=== PATIENT | female | born 1955 | race Caucasian/White ===

== ENCOUNTER 2018-05-24 15:31 | Outpatient (REF) | payer MEDICARE, SELFPAY ==
--- NOTE | 2018-05-24 14:40 | PAPFT_PTH ---
PATIENT: Gia Macario LOC: [facility] U#:[id number] AGE/SX: 63/F ROOM: RE05/24/[address]: Pari Marie : 1955 BED: DIS: 05/24/2018 SPEC #: [id number] RECD: 05/24/18 18:12 STATUS: PHILL REQ #: [id number] JEFRY: 05/24/18 14:[address]: Pari Marie DEPT: [facility] Cytology RECD BY: Gracia Campbell ENTERED: 05/24/18 18:13 SP TYPE: PAPFT BRANDON DR: Denny Rodas MD Tissues: 1 - CX/ENDOCX FOR PAP SMEARS Procedures: PAP THIN PREP/UVM Screening HPV DNA PROBE Comments: [id number]
== END 2018-05-24 15:51 ==
LOC: LBN 15:31
PROVIDERS: PCP Family Medicine; Visit Provider Obstetrics & Gynecology Gynecology
DX: Z12.4 Encounter for screening for malignant neoplasm of cervix (principal); Z11.51 Encounter for screening for human papillomavirus (HPV)
CPT/HCPCS: 88142; 87624

== ENCOUNTER 2018-06-03 00:28 | Outpatient (CLI) | payer MEDICARE, SELFPAY ==
--- NOTE | 2018-06-03 14:57 | DI.MAMMO_ITS ---
SYMPTOM/DIAGNOSIS: SCREENING, Z12.31 MAMMOGRAMS: Mammograms were interpreted according to the usual protocol including computer analysis with CAD system, tomosynthesis and C view imaging. The breasts are of moderate density with fairly symmetrical distribution of fibroglandular tissue. No dominant mass or clumped microcalcification is identified in either breast. Current examination is compared with previous examinations including 04/2017 and there has been no gross interval change in appearance in comparison with the previous studies. CONCLUSION: No specific evidence of malignancy at this time. Routine screening examinations are suggested at yearly intervals in this age group according to the ACS/ACR guidelines. Category 1. Breast density, category B. MQSA ASSESSMENT OF FINDINGS: Negative. Category 1. Patient will receive a letter notifying them of these results. BI-RADS category B. There are scattered areas of fibroglandular density.
--- NOTE | 2018-06-03 15:26 | DI.RAD_ITS ---
SYMPTOMS/DIAGNOSIS: EVAL BONE DENSITY, POSTMENOPAUSAL SCREENING, Z78.0, HX OF OSTEOPENIA DEXA SCAN: Lumbosacral spine scanning shows T score 0, previous examination of 01/2015 showed lumbar T score .3. Left hip scanning shows T score -1.1 with left femoral neck T score -1.7. The previous examination of 01/2015 showed left hip T score -.9. The left forearm scanning shows T score .6, previous examination of 01/2015 showed T score 1.5. Please note that the lateral vertebral scanogram shows slight wedging of mid thoracic vertebral bodies, mild compression fracture not excluded vs developmental changes. CONCLUSION: Findings consistent with osteopenia according to the WHO criteria.
== END 2018-06-03 00:48 ==
PROVIDERS: PCP Family Medicine; Visit Provider Obstetrics & Gynecology Gynecology
DX: Z12.31 Encounter for screening mammogram for malignant neoplasm of breast (principal); M85.88 Other specified disorders of bone density and structure, other site; Z78.0 Asymptomatic menopausal state
CPT/HCPCS: 77063; 77067; 77080

== ENCOUNTER → 2018-09-20 09:31 | Outpatient (BNVA) | payer MEDICARE, SELFPAY | PROVIDERS: PCP Family Medicine; Visit Provider Psychiatry & Neurology Neurology | DX: G40.209 Localization-related (focal) (partial) symptomatic epilepsy and epileptic syndromes with complex partial seizures, not intractable, without status epilepticus (principal); G43.009 Migraine without aura, not intractable, without status migrainosus; R13.10 Dysphagia, unspecified | CPT/HCPCS: 99214 ==

== ENCOUNTER 2018-09-20 10:39 | Outpatient (CLI) | payer MEDICARE, OTHER, SELFPAY ==
[2018-09-20 11:09] LABS: HCT 45.3 % (36.0-46.0); HGB 14.9 g/dL (12.0-15.5); Mean Corp. HGB Concentration 32.9 g/dL (32.0-36.0); Mean Corpuscular Hemoglobin 27.4 pg (27.0-33.0); Mean Corpuscular Volume 83.3 fL (80-95); Mean Platelet Volume 11.3 fL (8.0-11.0); Platelet Count 201 x1000/uL (130-400); RBC 5.44 m/cumm (4.00-5.20); RBC Distribution Width 15.2 % (11.7-14.6)
[2018-09-20 12:00] LABS: ALT 32 U/L (12-78); AST 24 U/L (15-37); Albumin 4.2 g/dL (3.4-5.0); Alkaline Phosphatase 120 U/L (46-116); Anion Gap 8.2 mmol/L (3-11); BUN 25 mg/dL (7-18); Bilirubin, Total 0.5 mg/dL (0.2-1.0); CO2 31.8 mmol/L (21.0-32.0); CREATININE 0.98 mg/dL (0.55-1.02); Calcium 9.9 mg/dL (8.5-10.1); Chloride 102 mmol/L (98-107); Estimated GFR 56.96 (mL/min/1.73m2); Glucose 90 mg/dL (70-100); Potassium 3.9 mmol/L (3.5-5.1); Sodium 142 mmol/L (136-145); Total Protein 7.3 g/dL (6.4-8.2)
[2018-09-21 16:45] LABS: Lamotrigine 9.8 mcg/mL (2.5 - 15.0)
== END 2018-09-20 10:59 ==
PROVIDERS: PCP Family Medicine; Visit Provider Psychiatry & Neurology Neurology
DX: R79.89 Other specified abnormal findings of blood chemistry (principal); G40.209 Localization-related (focal) (partial) symptomatic epilepsy and epileptic syndromes with complex partial seizures, not intractable, without status epilepticus; E03.9 Hypothyroidism, unspecified; Z51.81 Encounter for therapeutic drug level monitoring; G43.009 Migraine without aura, not intractable, without status migrainosus; R13.10 Dysphagia, unspecified
CPT/HCPCS: 36415; 80053; 80175; 85027; 99214; 84443

== ENCOUNTER 2018-12-17 13:52 | Emergency (ER) | payer MEDICARE, OTHER, SELFPAY ==
[2018-12-17] VITALS (51 sets, daily range): BP systolic 119–150; BP diastolic 63–88; PULSE 59–79; RESP 8–30; TEMP 36.7; O2SAT 95–100
[2018-12-17] MEDS: Aspirin 81 MG CHEW (14:03)
--- NOTE | 2018-12-17 14:07 | W.ED.GENAD ---
Discharge Plan Disposition Patient Disposition: HOME Condition: Improving Discharge Details Chief Complaint: Chest Pain Clinical Impression: Chest pain, Costochondral chest pain Primary Care Provider: Denny Rodas ED Provider: Eryn Patel Home Meds and New Rx's Prescriptions: Continued multivitamin [Daily Multi-Vitamin] 1 EACH tablet 1 ea PO DAILY RF: 0 ascorbic acid (vitamin C) [Vitamin C] 500 MG tablet,chewable 500 mg PO DAILY RF: 0 calcium carbonate [Tums] 300 MG tablet,chewable 300 mg PO BID RF: 0 cranberry extract 250 MG capsule 250 mg PO BID RF: 0 folic acid 0.8 MG tablet 0.8 mg PO DAILY RF: 0 cholecalciferol (vitamin D3) 1,000 UNIT capsule 1,000 unit PO DAILY RF: 0 magnesium oxide 400 MG capsule 400 mg PO DAILY RF: 0 hydroxyzine HCl 25 MG tablet 25 mg PO Q4H PRN Qty: 120 RF: 3 naproxen sodium 550 MG tablet 550 mg PO BID PRN Qty: 60 RF: 3 levothyroxine 75 mcg tablet 75 mcg PO DAILY Qty: 90 RF: 3 sumatriptan succinate [Imitrex] 25 mg tablet 25 mg PO ONCE Qty: 18 RF: 11 lamotrigine 200 mg tablet extended release 24hr 400 mg PO HS Qty: 180 RF: 3 metoprolol succinate 50 mg tablet extended release 24 hr 50 mg PO DAILY Qty: 90 RF: 3 metoprolol succinate 25 mg tablet extended release 24 hr 25 mg PO DAILY Qty: 90 RF: 3 gabapentin 300 mg capsule 300 mg PO BID Qty: 180 RF: 3 Discharge Instructions Instructions: Chest Pain (ED), Chest Wall Pain (ED) Additional Instructions: Follow-up promptly with her primary care doctor as well as with cardiology as discussed. Use Naprosyn [id number] with food. Ice to the chest wall. Rest activities as tolerated. Avoid any heavy lifting. You declined admission to the hospital at this time for further evaluation of chest pain. For any alarming symptoms, worsening symptoms, difficulty breathing, increasing chest pain associated with dizziness or weakness have immediate reevaluation to the emergency room. Return sooner if needed Medical Decision Making <SHARON Mancilla - Last Filed: 12/17/18 16:22> 14:00 This is a nontoxic-appearing 63-year-old female with substernal chest pain. Pain is somewhat reproducible with palpation of the sternum. EKG shows sinus rhythm without evidence of ST changes. Labs pending. Aspirin 324 mg given. Sublingual nitro provided. 15:26 Patient remains a stable on the monitor. She states that her chest pain was unresponsive to 2 sublingual nitroglycerin. She did experience significant relief with morphine 2 mg IV push. Her labs including initial troponin and d-dimer were negative. At this point her HEART score is mild. Her only risk factors being that of her age, family history of heart disease, and hypertensive history. Plan at this point is to repeat a troponin/EKG at 5:00. If negative we discussed discharge home and following up with her primary care provider Dr. Rodas. <SHARON Lazar - Last Filed: 12/17/18 23:02> This patient was signed out pending repeat EKG and troponin. Repeat EKG and troponin are unremarkable for any obvious cardiac injury or ischemic changes on the EKG. EKG was reviewed with my attending. Plan of care was discharged home if results were negative. I did discuss this with the patient. Patient does have mild persistence of her chest pain. On exam her pain is mildly reproducible. We discussed admission to the hospital for further cardiac rule out versus outpatient cardiac evaluation. 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 Patient will also follow-up with her primary care doctor. Patient is aware for any alarming or worsening symptoms to have immediate reevaluation in the emergency room. Patient agrees with this plan of care. HPI <SHARON Mancilla - Last Filed: 12/17/18 16:22> General Date/Time Provider Initiated Documentation: 12/17/18 14:02. HPI Narrative: Patient is a 63-year-old female with a history of migraines, pancreatitis, seizure and basal cell carcinoma of the face who presents to the emergency department with substernal chest pain nonradiating roughly 1 hour prior to arrival. She states that the pain came on suddenly and is gradually increased over this time. She denies any shortness of breath, however her pain is worse with deep breathing. No jaw or neck pain. No numbness or tingling in the hands. No recent illness. She denies any abdominal tenderness. No calf pain or swelling noted as of late. She has no history of heart disease nor is aware of any family history. She is a non-smoker. Related Data Home Medications Medication Instructions Recorded Confirmed ascorbic acid (vitamin C) [Vitamin 500 mg PO DAILY tab.chew 07/24/14 12/08/18 C] multivitamin [Daily Multi-Vitamin] 1 ea PO DAILY 07/24/14 12/08/18 calcium carbonate [Tums] 300 mg PO BID tab.chew 08/28/14 12/08/18 cranberry extract 250 mg PO BID 01/21/17 12/08/18 folic acid 0.8 mg PO DAILY tab-cap 01/29/17 12/08/18 cholecalciferol (vitamin D3) 1,000 unit PO DAILY 02/17/17 12/08/18 magnesium oxide 400 mg PO DAILY 02/17/17 12/08/18 hydroxyzine HCl 25 mg PO Q4H PRN #120 tab-cap 09/21/17 12/08/18 naproxen sodium 550 mg PO BID PRN #60 tab-cap 10/14/17 12/08/18 levothyroxine 75 mcg tablet 75 mcg PO DAILY #90 tab-cap 01/28/18 12/08/18 lamotrigine 200 mg tablet,extended 400 mg PO HS #180 tab 02/18/18 12/08/18 release 24 hr sumatriptan succinate 25 mg tablet 25 mg PO ONCE #18 tab-cap 02/18/18 12/08/18 metoprolol succinate 50 mg 50 mg PO DAILY #90 tab 06/01/18 12/08/18 tablet,extended release 24 hr metoprolol succinate 25 mg 25 mg PO DAILY #90 tab 07/29/18 12/08/18 tablet,extended release 24 hr gabapentin 300 mg capsule 300 mg PO BID #180 cap 10/21/18 12/08/18 Previous Rx's Medication Instructions Recorded hydroxyzine HCl 25 mg PO Q4H PRN #120 tab-cap 09/21/17 naproxen sodium 550 mg PO BID PRN #60 tab-cap 10/14/17 levothyroxine 75 mcg tablet 75 mcg PO DAILY #90 tab-cap 01/28/18 lamotrigine 200 mg tablet,extended 400 mg PO HS #180 tab 02/18/18 release 24 hr sumatriptan succinate 25 mg tablet 25 mg PO ONCE #18 tab-cap 02/18/18 metoprolol succinate 50 mg 50 mg PO DAILY #90 tab 06/01/18 tablet,extended release 24 hr metoprolol succinate 25 mg 25 mg PO DAILY #90 tab 07/29/18 tablet,extended release 24 hr gabapentin 300 mg capsule 300 mg PO BID #180 cap 10/21/18 Allergies Allergy/AdvReac Type Severity Reaction Status Date / Time No Known Allergies Allergy Unverified 12/08/18 08:46 General Stated Complaint: Chest Pain DOMINGA: 2 Review of Systems <SHARON Mancilla - Last Filed: 12/17/18 16:22> Constitutional Denies body ache(s), Denies fatigue, Denies fever(s), Denies headache(s), Denies lethargy, Denies night sweats and Denies weakness ENT Denies headache(s) and Denies neck pain Cardiovascular Reports chest pain, Reports chest pain at rest, Denies diaphoresis, Denies syncope, Denies rapid heart rate, Denies pedal edema, Denies edema, Denies irregular heart rhythm, Denies claudication, Denies leg ulcers, Denies leg edema, Denies lightheadedness, Denies radiating jaw, neck or arm pain, Denies palpitations, Denies dyspnea, Denies dyspnea on exertion, Denies orthopnea, Denies paroxysmal nocturnal dyspnea and Denies slow heart rate Respiratory Denies cough, Denies hemoptysis, Reports pain on inspiration, Denies dyspnea and Denies dyspnea on exertion Gastrointestinal Denies abdominal pain, Reports nausea and Denies vomiting Musculoskeletal Denies muscle weakness, Denies neck pain and Denies numbness Neurologic Denies syncope, Denies headache(s), Denies numbness and Denies weakness Endocrine Denies fatigue and Denies palpitations PFS <SHARON Mancilla - Last Filed: 12/17/18 16:22> Medical History Basal cell carcinoma of face (Acute) Brain abscess (Acute) 1971; 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 Sz at night. Currently stable on Lamictal. Cyst of breast, right, solitary 2013 Cat 2 2014.unchanged in appearance 04/2016 4.7mm R breast cyst. Displaced transverse fracture of right patella, subsequent encounter for closed fracture with malunion (Acute 08/01/16) Dyspareunia clitoral pain. Compounded vaginal E2 cream thru [facility] not effective. Elbow fracture, left (Acute) Glaucoma (Acute 03/14/15) Hypothyroidism (Chronic) Kidney stone (Acute 08/24/14) Migraine without aura and without status migrainosus, not intractable (Acute 03/23/17) SHERLY (obstructive sleep apnea) (Chronic) Osteopenia (Acute) Pancreatitis (Acute 01/16/17) Valproic acid toxicity 2016. Hospitalized at [facility]. Significant recovery. Surgical History section (~1989) Dilation and curettage LAMINECTOMY LUMBAR Ligation of fallopian tube ORIF R Patella 02/13/16 Tonsillectomy VENTRICULAR SHUNT after I+D of brain abcess. No issues. Family History Mother CHF (congestive heart failure) Father Essential hypertension Multiple myeloma Brother Essential hypertension Grandfather No problems noted. Grandfather Stroke Grandmother No problems noted. Grandmother No problems noted. Son No problems noted. Daughter No problems noted. 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 Seatbelt use: always Do you feel safe at home: Yes Do you feel safe in your relationship?: Yes Female Reproductive History Menstrual Menopause type: natural History History 3 Para Hx # Term Pregnancies 2 Multiple births Hx # Pregnancies Ectopic pregnancies AB induced Hx Number of Living Children AB spontaneous Exam <SHARON Mancilla - Last Filed: 12/17/18 16:22> Const General: cooperative, comfortable and anxious Orientation: alert, awake and oriented x3 HENMT Head: normal to inspection Neck Neck: normal visual inspection, full ROM and no lymphadenopathy Chest Chest: normal inspection of the chest and tenderness sternum and xiphoid process Resp Effort & Inspection: normal respiratory effort and able to speak in complete sentences Auscultation: clear to auscultation bilaterally Cardio Jugular venous pressure: no JVD Palpation: normal PMI Rate: regular rate Rhythm: regular rhythm Heart Sounds: S1 normal and S2 normal Pulses: normal peripheral pulses GI Inspection: normal to inspection Palpation: soft and nontender Skin General skin exam: no rashes or lesions noted Extrem General: normal to inspection Course <SHARON Mancilla - Last Filed: 12/17/18 16:22> Vital Signs Temperature 36.7 C 12/17/18 13:58 Pulse 73 12/17/18 13:58 Respiratory Rate 16 12/17/18 13:58 Blood Pressure 143/86 H 12/17/18 13:58 Pulse Oximetry 98 12/17/18 13:58 Temperature 36.7 C 12/17/18 13:58 Pulse 73 12/17/18 13:58 Respiratory Rate 16 12/17/18 13:58 Blood Pressure 143/86 H 12/17/18 13:58 Blood Pressure Position Supine 12/17/18 13:58 Pulse Oximetry 98 12/17/18 13:58 Oxygen Delivery Method Room Air 12/17/18 13:58 Oxygen Flow Rate 0 12/17/18 13:58 Pain Level 8 12/17/18 13:58 Sign Out <SHARON Mancilla - Last Filed: 12/17/18 16:22> Sign Out Data: Sign Out Comment: Pts here for CP. Symptoms improved s/p Morphine 2 mg IVP. Neg trop/ekg initial. Low HEART score. Repeat trop/ekg pending @1700. If neg she would prefer d/c home and f/u with PCP. Last updated by David Livingston PA at 12/17/18 16:16
[2018-12-17 14:12] LABS: Abs Immature Grans 0.02 k/cumm (0.0-0.09); Absolute Basophil Count 0.02 k/cumm (0.0-0.2); Absolute Eosinophil Count 0.06 k/cumm (0.0-0.7); Absolute Lymphocyte Count 1.67 k/cumm (1.2-3.4); Absolute Monocyte Count 0.28 k/cumm (0.11-0.7); Absolute Neutrophil Count 4.54 k/cumm (1.2-6.7); Basophils % 0.3; Eosinophils % 0.9; HCT 47.9 % (36.0-46.0); Immature Grans % 0.3; Lymphocytes % 25.3; Mean Corp. HGB Concentration 33.4 g/dL (32.0-36.0); Mean Corpuscular Hemoglobin 27.6 pg (27.0-33.0); Mean Corpuscular Volume 82.7 fL (80-95); Mean Platelet Volume 11.1 fL (8.0-11.0); Monocytes % 4.2; Platelet Count 220 x1000/uL (130-400); RBC 5.79 m/cumm (4.00-5.20); RBC Distribution Width 14.8 % (11.7-14.6); White Blood Cell Count 6.59 k/cumm (4.4-10.8)
--- NOTE | 2018-12-17 14:14 | NUR.NOTE ---
Nursing Note: pt refused 3rd nitroglycerin, will notify PA
[2018-12-17] MEDS: Ondansetron 4 MG/2 ML VIAL IVP (14:22)
[2018-12-17 14:30] LABS: PTT Activated 24.2 sec (21.0-31.4); Prothrombin Time 9.6 sec (9.3-11.0)
--- NOTE | 2018-12-17 14:30 | DI.RAD_ITS ---
SYMPTOMS/DIAGNOSIS: SUBSTERNAL CHEST PAIN PORTABLE AP CHEST: Note is made of ventriculoperitoneal shunt. The cardiac size is within normal limits. The lungs are clear and well expanded. CONCLUSION: No evidence of acute disease.
[2018-12-17 14:33] LABS: ALT 32 U/L (14-59); AST 19 U/L (15-37); Albumin 4.3 g/dL (3.4-5.0); Alkaline Phosphatase 115 U/L (46-116); Anion Gap 11.8 mmol/L (3-11); BUN 16 mg/dL (7-18); Bilirubin, Total 0.4 mg/dL (0.2-1.0); CO2 27.2 mmol/L (21.0-32.0); CREATININE 1.09 mg/dL (0.55-1.02); Chloride 102 mmol/L (98-107); Estimated GFR 50.38 (mL/min/1.73m2); Glucose 127 mg/dL (70-100); Potassium 4.1 mmol/L (3.5-5.1); Sodium 141 mmol/L (136-145); Total Protein 8.1 g/dL (6.4-8.2)
[2018-12-17 14:36] LABS: Troponin I < 0.05 ng/mL (0.00-0.06)
[2018-12-17 14:46] LABS: D-Dimer 357 ng/mlFEU (<500)
[2018-12-17 17:48] LABS: Troponin I < 0.05 ng/mL (0.00-0.06)
== END 2018-12-17 18:40 | disposition home or self-care (01) ==
PROVIDERS: Physician Assistant; Emergency Provider Physician Assistant; PCP Family Medicine
DX: M94.0 Chondrocostal junction syndrome [Tietze]; Z53.29 Procedure and treatment not carried out because of patient's decision for other reasons
CPT/HCPCS: 36415; 80053; 93005; 96374; 96375; 99285; 71045; 83735; 84484; 85025; 85379; 85610; 85730; 93010; J2405

== ENCOUNTER 2018-12-29 00:32 | Outpatient (CLI) | payer MEDICARE, OTHER, SELFPAY ==
--- NOTE | 2018-12-29 06:38 | MERGEMPI_ITS ---
*[facility]* *[facility]* [address] [place] [address] Myocardial Perfusion Imaging - SPECT Speedy protocol Date of study: 12/29/2018 *PATIENT PRESENTATION* Height: 177.8cm (70in) Blood Pressure: Weight: 72.7kg (160lb) BSA: 1.9m^2 Referring physician: Keaton Abbott Ordering physician: Denny Rodas Impressions: - Normal myocardial perfusion and contraction after maximal exercise. - Low risk of cardiac events. Summary: 1. Myocardial perfusion imaging: No myocardial perfusion defects noted. 2. The calculated left ventricular ejection fraction after stress: 72%. LV global systolic function is normal. No left ventricular regional motion abnormality. 3. Stress ECG conclusions: The stress ECG is non-diagnostic due to motion artifact. 4. Stress: The target heart rate was achieved. The heart rate response to stress is normal. There is a normal resting blood pressure with an appropriate response to stress. The patient experienced no chest pain during stress. Exercise capacity is mildly diminished for age. 5. Baseline ECG: Normal sinus rhythm with 1degrees AV block. 6. Treadmill exercise testing was performed using the Speedy protocol. The patient exercised for 4 min 38 sec, to protocol stage 2, to a maximal work rate of 6.6mets. Exercise was terminated due to dyspnea and fatigue. Indication: R07.9, Appropriate Use Criteria: A (Appropriate). History: REASON FOR TESTING: PATIENT TESTING TODAY FOR FURTHER RISK STRATIFICATION. SHE STATES SHE HAS FEELING TIRED AND EXPERIENCED SOB WITH ACTIVITY FOR THE LAST 6 MONTHS. SHE PRESENTED TO THE ER ON 12/17/18 WITH REALLY BAD HEARTBURN (8/10) MIDSTERNAL CHEST DISCOMFORT ASSOCIATED WITH DIZZYNESS, LIGHTHEADEDNESS AND NAUSEA. IN THE ER SHE RECEIVED ASPIRIN AND NITRO WITHOUT MUCH RELIEF. HOWEVER SHE REPORTS THE MORPHINE AND ZOFRAN WAS HELPFUL AND PAIN SUBSIDED AFTER 3 HOURS IN THE ER. HER TROPONIN LEVELS AND EKG IN ER WERE NORMAL. SHE STATES SHE HAS NOT HAD ANY CHEST PAIN SINCE HER VISIT TO THE ER. PATIENT DENIES CHEST PAIN UPON ARRIVAL TO TESTING TODAY. SIGNIFICANT PAST MEDICAL HISTORY: HISTORY OF BRAIN ABCESS WITH VENTRICULOPERITONEAL SHUNT INSERTION IN 1971, SHERLY, HYPOTHYROIDISM, TUBULAR ADENOMA SEIZURE DISORDER. SMOKING STATUS: NEVER. EXERCISE ROUTINE: ACTIVE WITH ADL'S. Risk factors: Family history of coronary artery disease. Hypertension. Dyslipidemia. Cholesterol: 191mg/dl. HDL: 65mg/dl. LDL: 101mg/dl. Triglycerides: 168mg/dl. ALLERGIES: NO KNOWN ALLERGIES. MEDICATIONS: MULTIVITAMIN DAILY, VITAMIN C 500 MG DAILY, TUMS 300 MG BID, CRANBERRY EXTRACT 250 MG BID, FOLIC ACID 0.8 MG DAILY, VITAMIN D 1000 UNITS DAILY, MAGNESIUM OXIDE 400 MG DAILY, HYDROXYZINE 25 MG PRN, NAPROXEN 550 MG PRN, LEVOTHYROXINE 75 MCG DAILY, IMITREX 25 MG PRN, LAMOTRIGINE 200 MG HS, METOPROLOL SUCCINATE 75 MG DAILY, GABAPENTIN 300 MG BID, LATANOPROST EYE DROPS HS, ASPIRIN 81 MG DAILY. Imaging Technique: Protocol: Speedy protocol. Acquisition: Gated SPECT; 1 day - rest/stress. The patient was imaged in the supine position. Attenuation correction used. Isotope administration: - Rest. Tc[99m]-sestamibi. Dose: 9.6mCi. Injection time: 10:12 AM. Injection to stress time: 00:45. - Stress. Tc[99m]-sestamibi. Dose: 29.3mCi. Injection time: 12:42 PM. 1-2 min before end of exercise Baseline ECG: SINUS RHYTHM/FIRST DEGREE WITH SD INTERVAL OF 0.24. HR 66 BPM. Normal ECG. Normal sinus rhythm with 1degrees AV block. Stress protocol: + +---+ + !Stage !HR !BP (mmHg) ! + +---+ + !Baseline supine !66 !142/90 (107)! + +---+ + !Baseline standing !76 !134/82 (99) ! + +---+ + !Stage I; 1.7mph, 10degrees; 3 min!136!168/92 (117)! + +---+ + !Peak stress !143! ! + +---+ + !Recovery; 1 min !126!180/88 (119)! + +---+ + !Recovery; 3 min !88 !176/80 (112)! + +---+ + !Recovery; 6 min !85 !146/82 (103)! + +---+ + * Stress results: STRESS TEST ENDED IN 4 MINUTES 38 SECONDS DUE TO FATIGUE AND SOB. NORMAL HEART RATE AND BLOOD PRESSURE RESPONSE TO EXERCISE. MAX HEART RATE: 143. 92 % OF TARGET HEART RATE ACHIEVED. MET'S: 6.60. RARE PAC'S WITH RECOVERY. NO ANGINA. NO SIGNIFICANT ST SEGMENT CHANGES. MILDLY DIMINISHED FUNCTIONAL CAPACITY. Maximal heart rate during stress was 143bpm (92% of maximal predicted heart rate). The maximal predicted heart rate was 155bpm. The target heart rate was achieved. The heart rate response to stress is normal. There is a normal resting blood pressure with an appropriate response to stress. The rate-pressure product for the peak heart rate and blood pressure was 50125nn Hg/min. The patient experienced no chest pain during stress. Exercise capacity is mildly diminished for age. Stress ECG: The stress ECG is non-diagnostic due to motion artifact. Myocardial perfusion: Imaging information: gated. The image quality was excellent. Left ventricular size is normal. No myocardial perfusion defects noted. Ventricular Function (Wall Motion): The calculated left ventricular ejection fraction after stress: 72%. LV global systolic function is normal. No left ventricular regional motion abnormality. Study data: Keaton Abbott MD supervised and was readily available during the procedure. This study was interpreted by [facility]. Study status: Routine. Consent: The risks, benefits, and alternatives to the procedure were explained to the patient and informed consent was obtained. Procedure: Initial setup. A baseline ECG was recorded. Surface ECG leads and manual cuff blood pressure measurements were monitored. Heart sounds: Normal. Lung sounds: Normal. Treadmill exercise testing was performed using the Speedy protocol. The patient exercised for 4 min 38 sec, to protocol stage 2, to a maximal work rate of 6.6mets. Exercise was terminated due to dyspnea and fatigue. Study completion: All catheters inserted during the procedure were removed. The patient tolerated the procedure well and was discharged from the lab. Discharge: The patient left the laboratory in stable condition. Birthdate: Patient birthdate: 1955. Sex: Gender: female. Study date: Study date: 12/29/2018. Study time: 00:01 AM. Signature Documentation: - The imaging portion of this study was interpreted by [facility] Wait[facility] Service Keaton Abbott MD. - The Stress ECG portion of this study was interpreted by Keaton Abbott MD. Electronically signed by Keaton Abbott 12/29/2018 15:34
== END 2018-12-29 00:52 ==
PROVIDERS: PCP Family Medicine; Visit Provider Family Medicine
DX: R07.9 Chest pain, unspecified (principal); R06.02 Shortness of breath; E03.9 Hypothyroidism, unspecified; Z82.49 Family history of ischemic heart disease and other diseases of the circulatory system
CPT/HCPCS: 78452; 93016; 93018; 93017

== ENCOUNTER 2019-01-07 13:57 | Outpatient (CLI) | payer MEDICARE, OTHER, SELFPAY ==
[2019-01-07 14:27] LABS: HCT 48.4 % (36.0-46.0); HGB 16.1 g/dL (12.0-15.5); Mean Corp. HGB Concentration 33.3 g/dL (32.0-36.0); Mean Corpuscular Hemoglobin 27.5 pg (27.0-33.0); Mean Corpuscular Volume 82.7 fL (80-95); Mean Platelet Volume 11.3 fL (8.0-11.0); Platelet Count 202 x1000/uL (130-400); RBC 5.85 m/cumm (4.00-5.20); RBC Distribution Width 14.9 % (11.7-14.6); White Blood Cell Count 6.33 k/cumm (4.4-10.8)
[2019-01-07 15:23] LABS: Amylase 66 U/L (25-115)
== END 2019-01-07 14:17 ==
PROVIDERS: PCP Family Medicine; Visit Provider Nurse Practitioner
DX: R11.2 Nausea with vomiting, unspecified (principal)
CPT/HCPCS: 36415; 85027; 82150

== ENCOUNTER 2019-01-16 12:28 | Emergency (ER) | payer MEDICARE, OTHER, SELFPAY ==
[2019-01-16 12:37] VITALS: BP 150/77; PULSE 72; RESP 16; TEMP 36.4; O2SAT 99
[2019-01-16 13:10] VITALS: BP 150/77; PULSE 72; RESP 16; TEMP 36.4; O2SAT 99
--- NOTE | 2019-01-16 13:19 | W.ED.GENAD ---
Discharge Plan Disposition Patient Disposition: HOME Condition: Good Discharge Details Chief Complaint: Laceration Clinical Impression: Finger laceration Primary Care Provider: Denny Rodas ED Provider: Bria Aguilar [place] Meds and New Rx's Prescriptions: Continued lamotrigine 200 mg tablet extended release 24hr 400 mg PO HS RF: 0 latanoprost [Xalatan] 0.005 % drops 1 drp ophthalmic (eye) QPM RF: 0 prochlorperazine [Compazine] 25 mg suppository 25 mg FL Q12H PRN (Reason: nausea and vomiting) Qty: 12 RF: 0 multivitamin [Daily Multi-Vitamin] 1 EACH tablet 1 ea PO DAILY RF: 0 ascorbic acid (vitamin C) [Vitamin C] 500 MG tablet,chewable 500 mg PO DAILY RF: 0 calcium carbonate [Tums] 300 MG tablet,chewable 300 mg PO BID RF: 0 cranberry extract 250 MG capsule 250 mg PO BID RF: 0 folic acid 0.8 MG tablet 0.8 mg PO DAILY RF: 0 cholecalciferol (vitamin D3) 1,000 UNIT capsule 1,000 unit PO DAILY RF: 0 magnesium oxide 400 MG capsule 400 mg PO DAILY RF: 0 hydroxyzine HCl 25 MG tablet 25 mg PO Q4H PRN Qty: 120 RF: 3 naproxen sodium 550 MG tablet 550 mg PO BID PRN Qty: 60 RF: 3 levothyroxine 75 mcg tablet 75 mcg PO DAILY Qty: 90 RF: 3 sumatriptan succinate [Imitrex] 25 mg tablet 25 mg PO ONCE Qty: 18 RF: 11 metoprolol succinate 50 mg tablet extended release 24 hr 50 mg PO DAILY Qty: 90 RF: 3 metoprolol succinate 25 mg tablet extended release 24 hr 25 mg PO DAILY Qty: 90 RF: 3 gabapentin 300 mg capsule 300 mg PO BID Qty: 180 RF: 3 aspirin [Aspirin Low Dose] 81 mg Tablet,Delayed Release (Dr/Ec) 81 mg PO DAILY RF: 0 Discharge Instructions Instructions: Finger Laceration (ED) Additional Instructions: Keep wound clean, dry, covered. Tylenol and/or ibuprofen as needed for discomfort. Please monitor for signs of infection including redness, warmth, drainage, increased pain, fever/chills. If these arise please seek care urgently once again. Please notify any ointment over the adhesive. Please allow the adhesive to come off naturally. Follow-up with primary care if needed. Referrals: Denny Rodas [Primary Care Provider] - Discharge Data Discharge Date/Time-TO BE ENTERED AT DEPARTURE: 01/16/19 13:36 Medical Decision Making Patient is a 63-year-old [id number] female presenting today with chief complaint of laceration to the radial side of the ring finger on the left hand. Patient has a 1 cm superficial laceration running horizontally across the radial side of the finger over the distal phalanx. No active bleeding. Sensation is intact distal to this. Minus any evidence of bony or ligamentous injury. Discussed risk/benefits of closure. Decided upon adhesive closure. Wound was copiously irrigated by myself. Explored to base in a bloodless with no foreign body or debris noted. Thin layer of adhesive was applied over this. Patient was given return precautions. Her tetanus is up-to-date. We discussed the signs symptoms of infection when to seek care urgently once again. Discussed, please call for questions and concerns were addressed in agreement this plan. HPI General Mode of arrival: ambulatory. Date/Time Provider Initiated Documentation: 01/16/19 13:08. Limitations to Documentation: no limitations. Information obtained by: patient and RN notes reviewed. History of Present Illness 63 year old F presents to the emergency department with the chief complaint of left ring finger laceration, described as mild, with intensity rated at 3. Quality is described as burning, and is localized to the left and upper extremity. Patient reports no radiation. Patient started experiencing this minute(s) and it has been constant. No relieving factors improve symptom(s), No exacerbating factors reported . Patient notes no other symptoms.. Patient did receive the following treatments prior to arrival, none Related Data Home Medications Medication Instructions Recorded Confirmed ascorbic acid (vitamin C) [Vitamin 500 mg PO DAILY tab.chew 07/24/14 01/16/19 C] multivitamin [Daily Multi-Vitamin] 1 ea PO DAILY 07/24/14 01/16/19 calcium carbonate [Tums] 300 mg PO BID tab.chew 08/28/14 01/16/19 cranberry extract 250 mg PO BID 01/21/17 01/16/19 folic acid 0.8 mg PO DAILY tab-cap 01/29/17 01/16/19 cholecalciferol (vitamin D3) 1,000 unit PO DAILY 02/17/17 01/16/19 magnesium oxide 400 mg PO DAILY 02/17/17 01/16/19 hydroxyzine HCl 25 mg PO Q4H PRN #120 tab-cap 09/21/17 01/16/19 naproxen sodium 550 mg PO BID PRN #60 tab-cap 10/14/17 01/16/19 levothyroxine 75 mcg tablet 75 mcg PO DAILY #90 tab-cap 01/28/18 01/16/19 sumatriptan succinate 25 mg tablet 25 mg PO ONCE #18 tab-cap 02/18/18 01/16/19 metoprolol succinate 50 mg 50 mg PO DAILY #90 tab 06/01/18 01/16/19 tablet,extended release 24 hr metoprolol succinate 25 mg 25 mg PO DAILY #90 tab 07/29/18 01/16/19 tablet,extended release 24 hr gabapentin 300 mg capsule 300 mg PO BID #180 cap 10/21/18 01/16/19 lamotrigine 200 mg tablet,extended 400 mg PO HS tab 12/22/18 01/16/19 release 24 hr latanoprost 0.005 % eye drops 1 drp OPHTHALMIC (EYE) QPM 12/22/18 01/16/19 prochlorperazine 25 mg rectal 25 mg FL Q12H PRN #12 each 01/07/19 01/16/19 suppository aspirin [Aspirin Low Dose] 81 mg PO DAILY 01/16/19 01/16/19 Previous Rx's Medication Instructions Recorded hydroxyzine HCl 25 mg PO Q4H PRN #120 tab-cap 09/21/17 naproxen sodium 550 mg PO BID PRN #60 tab-cap 10/14/17 levothyroxine 75 mcg tablet 75 mcg PO DAILY #90 tab-cap 01/28/18 sumatriptan succinate 25 mg tablet 25 mg PO ONCE #18 tab-cap 02/18/18 metoprolol succinate 50 mg 50 mg PO DAILY #90 tab 06/01/18 tablet,extended release 24 hr metoprolol succinate 25 mg 25 mg PO DAILY #90 tab 07/29/18 tablet,extended release 24 hr gabapentin 300 mg capsule 300 mg PO BID #180 cap 10/21/18 prochlorperazine 25 mg rectal 25 mg FL Q12H PRN #12 each 01/07/19 suppository Allergies Allergy/AdvReac Type Severity Reaction Status Date / Time No Known Allergies Allergy Unverified 01/16/19 12:39 General Stated Complaint: Laceration DOMINGA: 4 Review of Systems Constitutional Constitutional: Reports as per HPI, Denies chills and Denies fever(s) Musculoskeletal Musculoskeletal: Reports as per HPI Integumentary/Breasts Skin/Breast: Reports as per HPI Neurologic Neurologic: Reports as per HPI, Denies sensory deficit and Denies paresthesias [facility] Medical History Basal cell carcinoma of face (Acute) Brain abscess (Acute) 1971; 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 Sz at night. Currently stable on Lamictal. Cyst of breast, right, solitary 2013 Cat 2 2014.unchanged in appearance 04/2016 4.7mm R breast cyst. Displaced transverse fracture of right patella, subsequent encounter for closed fracture with malunion (Acute 08/01/16) Dyspareunia clitoral pain. Compounded vaginal E2 cream thru [facility] not effective. Elbow fracture, left (Acute) Glaucoma (Acute 03/14/15) Hypothyroidism (Chronic) Kidney stone (Acute 08/24/14) Migraine without aura and without status migrainosus, not intractable (Acute 03/23/17) SHERLY (obstructive sleep apnea) (Chronic) Osteopenia (Acute) Pancreatitis (Acute 01/16/17) Valproic acid toxicity 2016. Hospitalized at [facility]. Significant recovery. Surgical History section (~1989) Dilation and curettage LAMINECTOMY LUMBAR Ligation of fallopian tube ORIF R Patella 02/13/16 Tonsillectomy VENTRICULAR SHUNT after I+D of brain abcess. No issues. 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 Seatbelt use: always Do you feel safe at home: Yes Do you feel safe in your relationship?: Yes Female Reproductive History Menstrual Menopause type: natural History History 3 Para Hx # Term Pregnancies 2 Multiple births Hx # Pregnancies Ectopic pregnancies AB induced Hx Number of Living Children AB spontaneous Exam Const General: cooperative, healthy appearing, comfortable, no acute distress and well developed Nutritional Appearance: average body habitus and well nourished Orientation: alert and awake Resp Effort & Inspection: normal respiratory effort, able to speak in complete sentences and no respiratory distress Cardio Rate: regular rate Rhythm: regular rhythm Skin Trauma: laceration (Left ring finger laceration as below) Neuro General: alert and awake Cognition: normal cognition Speech: speech normal Gait: normal gait Sensory Exam: no sensory deficits noted Extrem Hand/finger images: 1. 1 cm superficial laceration. Is not actively bleeding. No gap and between the wound edges. Wound explored to base in a bloodless field no foreign body or debris noted. No ligamentous or bony involvement. No surrounding erythema, warmth, drainage. Psych Appearance: grossly normal and well kempt Mental Status: mental status grossly normal Speech and Movement: speech and movement normal Course Vital Signs Vital signs: Vital Signs Temperature 36.4 C L 01/16/19 12:37 Pulse 72 01/16/19 12:37 Respiratory Rate 16 01/16/19 12:37 Blood Pressure 150/77 H 01/16/19 12:37 Pulse Oximetry 99 01/16/19 12:37 Temperature 36.4 C L 01/16/19 13:10 Temperature Source Skin 01/16/19 12:37 Pulse 72 01/16/19 13:10 Respiratory Rate 16 01/16/19 13:10 Respiratory Effort Non-Labored 01/16/19 12:37 Blood Pressure 150/77 H 01/16/19 13:10 Blood Pressure Position Sitting 01/16/19 12:37 Pulse Oximetry 99 01/16/19 13:10 Oxygen Delivery Method Room Air 01/16/19 12:37 Oxygen Flow Rate 0 01/16/19 12:37 Pain Level 0 01/16/19 13:10
== END 2019-01-16 13:36 | disposition home or self-care (01) ==
PROVIDERS: Emergency Provider Physician Assistant; PCP Family Medicine
DX: S61.215A Laceration without foreign body of left ring finger without damage to nail, initial encounter (principal); W26.0XXA Contact with knife, initial encounter
CPT/HCPCS: 12001

== ENCOUNTER 2019-02-15 17:48 | Emergency (ER) | payer MEDICARE, OTHER, SELFPAY ==
[2019-02-15 17:57] VITALS: BP 163/77; PULSE 73; RESP 18; TEMP 36.6; O2SAT 98
--- NOTE | 2019-02-15 18:06 | DI.RAD_ITS ---
EXAM: XR ANKLE RT COMPLETE CLINICAL HISTORY: pain/injury TECHNIQUE: COMPARISON: XR FOOT RT COMPLETE from 02/15/2019 FINDINGS: Three views of the ankle and three views of the foot were obtained. The ankle mortise appears well m aintained. There is a mild hallux valgus deformity and mild degenerative changes of the joints of th e foot and ankle. No acute fracture seen. IMPRESSION:
--- NOTE | 2019-02-15 18:07 | W.ED.GENAD ---
Discharge Plan Disposition Patient Disposition: HOME Condition: Stable Discharge Details Chief Complaint: Orthopedic Clinical Impression: Strain of right ankle and foot Primary Care Provider: Denny Rodas ED Provider: Keith Cheema Home Meds and New Rx's Prescriptions: Continued latanoprost [Xalatan] 0.005 % drops 1 drp ophthalmic (eye) QPM RF: 0 levothyroxine 75 mcg tablet 75 mcg PO DAILY Qty: 90 RF: 3 multivitamin [Daily Multi-Vitamin] 1 EACH tablet 1 ea PO DAILY RF: 0 ascorbic acid (vitamin C) [Vitamin C] 500 MG tablet,chewable 500 mg PO DAILY RF: 0 calcium carbonate [Tums] 300 MG tablet,chewable 300 mg PO BID RF: 0 cranberry extract 250 MG capsule 250 mg PO BID RF: 0 folic acid 0.8 MG tablet 0.8 mg PO DAILY RF: 0 cholecalciferol (vitamin D3) 1,000 UNIT capsule 1,000 unit PO DAILY RF: 0 magnesium oxide 400 MG capsule 400 mg PO DAILY RF: 0 hydroxyzine HCl 25 MG tablet 25 mg PO Q4H PRN Qty: 120 RF: 3 naproxen sodium 550 MG tablet 550 mg PO BID PRN Qty: 60 RF: 3 sumatriptan succinate [Imitrex] 25 mg tablet 25 mg PO ONCE Qty: 18 RF: 11 metoprolol succinate 50 mg tablet extended release 24 hr 50 mg PO DAILY Qty: 90 RF: 3 metoprolol succinate 25 mg tablet extended release 24 hr 25 mg PO DAILY Qty: 90 RF: 3 gabapentin 300 mg capsule 300 mg PO BID Qty: 180 RF: 3 lamotrigine 200 mg tablet extended release 24hr 200 mg PO BID Qty: 180 RF: 3 aspirin [Aspirin Low Dose] 81 mg Tablet,Delayed Release (Dr/Ec) 81 mg PO DAILY RF: 0 Discharge Instructions Additional Instructions: As we discussed you may use crutches as needed with the walking boot for 3 to 4 days time, then use walking boot until you can remove and you use regular shoes. Follow-up with regular doctor return to the ER for recheck if pain persists beyond 7 to 10 days time as we discussed, as you may need a repeat x-ray to rule out an occult fracture. Ibuprofen for pain. May use the provided Vicodin as needed for severe/breakthrough pain. Continue your regularly prescribed medications Medical Decision Making 63-year-old female presents from home complaining of twisting her right foot and ankle while walking in the ER. She has right fifth metatarsal tenderness proximally as well as right lateral malleoli or tenderness. Given Tylenol. Referred for x-ray: Radiographs without evidence of acute bony injury. Patient placed in walking boot. She understands follow-up and return precautions including need for repeat x-ray to rule out occult fracture if pain persist beyond 7 to 10 days time. I feel it is reasonable for her to follow-up with primary care if she does have persistent discomfort. At that time repeat radiographs may be obtained. HPI General Mode of arrival: wheelchair. Date/Time Provider Initiated Documentation: 02/15/19 18:03. Limitations to Documentation: no limitations. Information obtained by: patient and family. History of Present Illness 63 year old F presents to the emergency department with the chief complaint of Right foot and ankle pain after twisting while walking in the yard today, described as moderate, Quality is described as dull and constant, and is localized to the right and lower extremity. Patient reports no radiation. Patient started experiencing this hour(s) and it has been constant. No relieving factors improve symptom(s), No exacerbating factors reported . Patient did receive the following treatments prior to arrival, none Related Data Home Medications Medication Instructions Recorded Confirmed ascorbic acid (vitamin C) [Vitamin 500 mg PO DAILY tab.chew 07/24/14 02/01/19 C] multivitamin [Daily Multi-Vitamin] 1 ea PO DAILY 07/24/14 02/01/19 calcium carbonate [Tums] 300 mg PO BID tab.chew 08/28/14 02/01/19 cranberry extract 250 mg PO BID 01/21/17 02/01/19 folic acid 0.8 mg PO DAILY tab-cap 01/29/17 02/01/19 cholecalciferol (vitamin D3) 1,000 unit PO DAILY 02/17/17 02/01/19 magnesium oxide 400 mg PO DAILY 02/17/17 02/01/19 hydroxyzine HCl 25 mg PO Q4H PRN #120 tab-cap 09/21/17 02/01/19 naproxen sodium 550 mg PO BID PRN #60 tab-cap 10/14/17 02/01/19 sumatriptan succinate 25 mg tablet 25 mg PO ONCE #18 tab-cap 02/18/18 02/01/19 metoprolol succinate 50 mg 50 mg PO DAILY #90 tab 06/01/18 02/01/19 tablet,extended release 24 hr metoprolol succinate 25 mg 25 mg PO DAILY #90 tab 07/29/18 02/01/19 tablet,extended release 24 hr gabapentin 300 mg capsule 300 mg PO BID #180 cap 10/21/18 02/01/19 latanoprost 0.005 % eye drops 1 drp OPHTHALMIC (EYE) QPM 12/22/18 02/01/19 aspirin [Aspirin Low Dose] 81 mg PO DAILY 01/16/19 02/01/19 levothyroxine 75 mcg tablet 75 mcg PO DAILY #90 tab-cap 02/01/19 02/01/19 lamotrigine 200 mg tablet,extended 200 mg PO BID #180 tab 02/09/19 release 24 hr Previous Rx's Medication Instructions Recorded hydroxyzine HCl 25 mg PO Q4H PRN #120 tab-cap 09/21/17 naproxen sodium 550 mg PO BID PRN #60 tab-cap 10/14/17 sumatriptan succinate 25 mg tablet 25 mg PO ONCE #18 tab-cap 02/18/18 metoprolol succinate 50 mg 50 mg PO DAILY #90 tab 06/01/18 tablet,extended release 24 hr metoprolol succinate 25 mg 25 mg PO DAILY #90 tab 07/29/18 tablet,extended release 24 hr gabapentin 300 mg capsule 300 mg PO BID #180 cap 10/21/18 levothyroxine 75 mcg tablet 75 mcg PO DAILY #90 tab-cap 02/01/19 lamotrigine 200 mg tablet,extended 200 mg PO BID #180 tab 02/09/19 release 24 hr Allergies Allergy/AdvReac Type Severity Reaction Status Date / Time No Known Allergies Allergy Unverified 02/01/19 09:25 General Stated Complaint: Orthopedic DOMINGA: 4 Review of Systems Narrative: No other injury. No back pain, no knee injury. Pain is somewhat worse with weightbearing. 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 Sz at night. Currently stable on Lamictal. Cyst of breast, right, solitary 2013 Cat 2 2014.unchanged in appearance 04/2016 4.7mm R breast cyst. Displaced transverse fracture of right patella, subsequent encounter for closed fracture with malunion (Acute 08/01/16) Dyspareunia clitoral pain. Compounded vaginal E2 cream thru [facility] not effective. Elbow fracture, left (Acute) Glaucoma (Acute 03/14/15) Hypothyroidism (Chronic) Kidney stone (Acute 08/24/14) Migraine without aura and without status migrainosus, not intractable (Acute 03/23/17) SHERLY (obstructive sleep apnea) (Chronic) Osteopenia (Acute) Pancreatitis (Acute 01/16/17) Valproic acid toxicity 2016. Hospitalized at [facility]. Significant recovery. Family History Mother , age 94 CHF (congestive heart failure) A-fib Hypertension Father , age 78 Essential hypertension Multiple myeloma Brother Essential hypertension Heart disease MVR Maternal Grandfather No problems noted. Paternal Grandfather Stroke Maternal Grandmother No problems noted. Paternal Grandmother No problems noted. Son No problems noted. Daughter No problems noted. 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 Pets and animals: Yes Pets and animals: dog(s) Do you think of yourself as: straight/heterosexual Current gender identity: female What is your relationship status?: How often do you talk on the phone with friends or family?: three or more times per week How often do you get together with friends or relatives?: twice per week How often do you attend buddhism or hinduism services?: decline to answer Do you belong to any clubs or organized social groups?: no Panel score (0-1 are the most socially isolated patients): 2 What type of physical activity do you participate in: walking Duration: decline to answer Frequency: decline to answer Elvia/Druze: Muslim Special elvia needs: No Seatbelt use: always 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 Pleasant, well groomed, interactive. HEAD: Normocephalic, atraumatic ENT: Mucous membranes moist, oropharynx unremarkable, External ear exam unremarkable EYES: PERRL, EOMI EXT: Full ROM, right fifth metatarsal proximally tender, right lateral malleolus tender with mild edema. Neuro: Grossly normal neurologic exam, conversant, interactive. Psych: Speech fluent, thoughts congruent, affect normal Course Vital Signs Vital signs: Vital Signs Temperature 36.6 C 02/15/19 17:57 Pulse 73 02/15/19 17:57 Respiratory Rate 18 02/15/19 17:57 Blood Pressure 163/77 H 02/15/19 17:57 Pulse Oximetry 98 02/15/19 17:57 Temperature 36.6 C 02/15/19 17:57 Temperature Source Temporal Artery Scan 02/15/19 17:57 Pulse 73 02/15/19 17:57 Respiratory Rate 18 02/15/19 17:57 Respiratory Effort 02/15/19 17:59 Blood Pressure 163/77 H 02/15/19 17:57 Pulse Oximetry 98 02/15/19 17:57 Oxygen Delivery Method Room Air 02/15/19 17:57 Oxygen Flow Rate 0 02/15/19 17:57 Pain Level 10 02/15/19 17:57 Comment 02/15/19 17:57
--- NOTE | 2019-02-15 19:14 | DI.VRAD_ITS ---
PROCEDURE INFORMATION: Exam: XR Right Ankle Exam date and time: 02/15/2019 6:52 PM Clinical history: 63 years old, female; Other: Truama/ pain TECHNIQUE: Imaging protocol: XR Right ankle. Views: 3 or more views. COMPARISON: No relevant prior studies available. FINDINGS: Bones/joints: Unremarkable. Soft tissues: Unremarkable. IMPRESSION: No evidence for acute bony injury. If clinical symptoms persist recommend followup film in 7-10 days. Dictated and Authenticated by: Gabriela Barba MD. Ordering:ALVARADO Parker MD
--- NOTE | 2019-02-15 19:28 | DI.VRAD_ITS ---
PROCEDURE INFORMATION: Exam: XR Right Foot Complete Exam date and time: 02/15/2019 6:52 PM Clinical history: 63 years old, female; Other: Trauma, pain TECHNIQUE: Imaging protocol: XR Right foot. Views: 3 or more views. COMPARISON: No relevant prior studies available. FINDINGS: Bones/joints: Normal. Soft tissues: Normal. IMPRESSION: No acute bony findings. If clinical symptoms persist recommend followup film in 7-10 days. Dictated and Authenticated by: Gabriela Barba MD. Ordering:ALVARADO Parker MD
== END 2019-02-15 19:45 | disposition home or self-care (01) ==
PROVIDERS: Emergency Provider Emergency Medicine; PCP Family Medicine
DX: S93.401A Sprain of unspecified ligament of right ankle, initial encounter (principal); S93.601A Unspecified sprain of right foot, initial encounter; W18.49XA Other slipping, tripping and stumbling without falling, initial encounter
CPT/HCPCS: 29515; 99284; 73610; 73630; 99282; E0114; L4361

== ENCOUNTER 2019-02-22 00:40 | Outpatient (CLI) | payer MEDICARE, OTHER, SELFPAY ==
--- NOTE | 2019-02-22 09:47 | DI.US_ITS ---
APPROVED REPORT EXAM: Comprehensive 2D, Doppler, and color-flow Echocardiogram Patient Location: Out-Patient Capacity Planning Engineer: RAISSA Ospina (AE) Rhythm: NSR Indications: SOBOE and some edema ( CARVAJAL) R06.02 Conclusion Left Ventricle : The left ventricle is normal size. The left ventricular ejection fraction is within the normal range. There is normal LV segmental wall motion. Moderate asymmetric septal thickening is noted (1.5cm). There is no obstructions with valvsalva. LVEF is 60-65%. The left ventricular diastoli c function is normal. Right Ventricle : The right ventricle is normal size. The right ventricular systolic function appears normal. Atria : The left atrium size is normal. The right atrium size is normal. Aortic Valve : The aortic valve is normal in structure. There is no aortic valvular stenosis. Mild ao rtic regurgitation. 2 jets are present. Mitral Valve : The AVML is very mildly thickened. Moderate mitral regurgitation. Directed posteriorly No evidence of mitral valve stenosis. Tricuspid Valve : The tricuspid valve is normal in structure. Trace tricuspid regurgitation. Great Vessels : IVC is top normal in size and collapses >50% with inspiration. Estimated RVSP is 19- 22 mmHg. The patient was hypertensive on exam and is frequently hypertensive per chart review. That said her septum seems disproportionately thick. Would consider the diagnosis of hypertrophic cardiomyopathy. There is no prior echocardiogram available for comparison. Wall motion Left Ventricle The left ventricle is normal size. The left ventricular ejection fraction is within the normal range. Moderate asymmetric septal thickening is noted (1.5cm). There is no obstructions with valvsalva. The re is normal LV segmental wall motion. The left ventricular diastolic function is normal. LVEF is 60- 65%. Right Ventricle The right ventricle is normal size. The right ventricular systolic function appears normal. Atria The left atrium size is normal. The right atrium size is normal. Aortic Valve The aortic valve is normal in structure. There is no aortic valvular stenosis. Mild aortic regurgitat ion. 2 jets are present. Mitral Valve The AVML is very mildly thickened. No evidence of mitral valve stenosis. Moderate mitral regurgitatio n. Directed posteriorly Tricuspid Valve The tricuspid valve is normal in structure. There is no tricuspid valve stenosis. Trace tricuspid reg urgitation. Pulmonic Valve Pulmonic valve is not well visualized. Mild pulmonic regurgitation. Great Vessels The aortic root is normal in size. IVC is top normal in size and collapses >50% with inspiration. Est imated RVSP is 19-22 mmHg. Pericardium Prominent anterior epicardial fat pad is present. 2D Dimensions IVSd 1.54 cm F: 0.6-1.0 LV EDV A2C 65.60 mL PWd 1.21 cm F: 0.6 - 1.0 LV EDV A4C 59.60 mL LVDd 4.30 cm F: 3.9 - 5.3 LA Volume Index A2C 19.67 mL/m2 LVDs 2.94 cm F: 2.2 - 3.5 LA Volume Index A4C 19.69 mL/m2 Aortic Root 3.01 cm F: 2.7 - 3.3 LA Volume Index Biplane 20.91 mL/m2 RA Area A4C 11.93 cm2 LA Area A4C 13.33 cm2 LVOT 2.04 cm (M/F) 1.5-2.5 LA Area A2C 14.16 cm2 Ascending Aorta 3.31 cm F: 2.3 - 3.1 EF AP4 65.44 % LVEF (Teich) 59.84 % EF AP2 71.65 % LVEF (Knowles's) 70.51 % F: 54 - 74 EF BP 70.51 % LV Volume 49.70 mL F: 46 - 106 LV Volume Index 26.15 mL/m2 F: 29 - 61 FS 31.59 % LV Diastology E Decel Time 270.00 (160-240 msec) E/A Ratio 0.80 MED E' 0.07 (>0.07 m/s) LV E/e MED 8.17 (<14) LAT E' 0.06 (>0.1 m/s) LV E/e LAT 9.93 (<14) Pulm Vein s 0.54 m/s PV S/D Ratio 1.42 Pulm Vein d 0.38 m/s Aortic Valve LVOT Area 3.28 cm2 LVOT Peak Mumtaz. 1.10 m/s LVOT Mean Mumtaz. 0.81 m/s LVOT Peak Gr. 4.80 mmHg SUELLEN Vmax Index 1.62 cm2/m2 LVOT Mean Gr. 2.92 mmHg LVOT VTI 0.26 m SUELLEN Mean Mumtaz. Index 1.58 cm2/m2 AoV Peak Mumtaz. 1.17 (0.5-1.3 m/s) AoV Mean Mumtaz. 0.89 m/s AO Peak GR. 5.46 mmHg AO Mean GR. 3.39 (<5 mmHg) AO VTI 0.29 (0.18-0.25 m) VTI Ratio 0.91 SUELLEN (VTI) 3.08 (2.5-4.5 cm2) SUELLEN (VTI) Index 1.57 cm/m2 Mitral Valve MV E Max Mumtaz. 0.56 (0.4-1.3 m/s) MV A Velocity 0.70 (0.4-1.3 m/s) E/A Ratio 0.80 MV Decel. Time 269.73 (160-240 msec) MV PHT 78.22 msec MVA PHT 2.81 cm2 Pulmonary Valve PV Peak Velocity 0.93 (0.5-1.5 m/s) Tricuspid Valve TR P. Velocity 2.18 m/s TV Regurg Vmax 2.18 m/s RVSP 22.07 mmHg TR P. Gradient 19.07 mmHg
== END 2019-02-22 01:00 ==
PROVIDERS: PCP Family Medicine; Visit Provider Family Medicine
DX: R06.02 Shortness of breath (principal); R60.0 Localized edema; I51.7 Cardiomegaly; I42.9 Cardiomyopathy, unspecified; I10 Essential (primary) hypertension
CPT/HCPCS: 93306

== ENCOUNTER 2019-03-01 09:07 | Outpatient (CLI) | payer MEDICARE, OTHER, SELFPAY ==
--- NOTE | 2019-03-21 08:11 | W.ZIOMONITOR ---
Date of service: 03/21/19 Time of Service: 08:11 ZIO Patch Assistive Technology Specialist Note: There is a 2-week ZIO patch ordered for the indication of cardiomyopathy. ?Patient was in normal sinus rhythm for the majority of the recording. Patient had a minimum heart rate of 57 bpm and a maximum heart rate of 158 bpm. ?There were 17 episodes of supraventricular tachycardia with the longest lasting 16 beats at a rate of 118 bpm. ?There were rare isolated supraventricular ectopic beats. ?There were rare (less than 1%) isolated ventricular ectopic beats. ?There were 6 patient triggered events which were associated with sinus rhythm and singlular supraventricular ectopic beats. ?There were no episodes of ventricular tachycardia, no pauses greater than 3 seconds and no episodes of high degree heart block.
== END 2019-03-01 09:27 ==
PROVIDERS: PCP Family Medicine; Visit Provider Internal Medicine Cardiovascular Disease
DX: I42.9 Cardiomyopathy, unspecified (principal); I47.1 Supraventricular tachycardia; I49.1 Atrial premature depolarization; I51.7 Cardiomegaly; Z79.899 Other long term (current) drug therapy
CPT/HCPCS: 0296T; 99204; 99215; 93005; 93010

== ENCOUNTER 2019-03-03 11:06 | Outpatient (CLI) | payer MEDICARE, OTHER, SELFPAY ==
[2019-03-03 12:27] LABS: Anion Gap 7.9 mmol/L (3-11); BUN 17 mg/dL (7-18); CO2 31.1 mmol/L (21.0-32.0); Calcium 9.9 mg/dL (8.5-10.1); Chloride 104 mmol/L (98-107); Estimated GFR 55.64 (mL/min/1.73m2); Glucose 93 mg/dL (74-106); Potassium 4.1 mmol/L (3.5-5.1); Sodium 143 mmol/L (136-145)
== END 2019-03-03 11:26 ==
PROVIDERS: PCP Family Medicine; Visit Provider Internal Medicine Cardiovascular Disease
DX: Z79.899 Other long term (current) drug therapy (principal); I42.9 Cardiomyopathy, unspecified; I10 Essential (primary) hypertension
CPT/HCPCS: 36415; 80048

== ENCOUNTER 2019-03-21 08:11 | Outpatient (CLI) | payer MEDICARE, OTHER, SELFPAY | END 2019-03-21 08:31 | PROVIDERS: PCP Family Medicine; Referring Provider Family Medicine; Visit Provider Internal Medicine Cardiovascular Disease | DX: I42.9 Cardiomyopathy, unspecified (principal); I47.1 Supraventricular tachycardia; I49.1 Atrial premature depolarization | CPT/HCPCS: 0298T ==

== ENCOUNTER → 2019-03-31 11:11 | Outpatient (BNVA) | payer MEDICARE, OTHER, SELFPAY | PROVIDERS: PCP Family Medicine; Referring Provider Family Medicine; Visit Provider Physical Therapy Assistant | DX: Z12.11 Encounter for screening for malignant neoplasm of colon (principal); Z86.010 Personal history of colon polyps; I10 Essential (primary) hypertension ==

== ENCOUNTER 2019-04-27 06:15 | Day surgery (SDC) | payer MEDICARE, OTHER, SELFPAY ==
[2019-04-27 06:15] VITALS: BP 145/88; PULSE 72; RESP 18; TEMP 37.2; O2SAT 99
--- NOTE | 2019-04-27 06:43 | COLE_ITS ---
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 Her last screening was in 2013, which was remarkable for tubular adenoma. She denies a family history of colon cancer. She denies any changes in bowel habits including bloody or black tarry stools, abdominal pain, diarrhea or constipation. Of note she did notice small amount of blood on toilet paper, after BM 2 days ago following an episode of diarrhea. She denies constitutional symptoms. Denies use of marijuana or any other recreational or illegal drugs. Prep: Miralax/Dulcolax Procedure Start Time: :17 Procedure End Time: 07:44 Retraction Time: 17 minutes Findings: 3 adenomatous polyps Grade 1 internal hemorrhoids Procedure Description: After informed consent was obtained the patient was taken to the procedure room and placed in a left decubitous position. Monitors were applied and a time out was done. The patients name, date of , procedure, allergies to medications and metal in their body was reviewed. The patient was then sedated. Once sedated and comfortable a rectal exam was done. External exam was normal. Internal exam revealed a normal sphincter tone and no palpable masses. The scope was then introduced and retro-flexed. Grade 1 internal hemorrhoids were identified. There were no masses or polyps on retro-flexion. The scope was then advanced to the cecum without difficulty. The TI and appendiceal orifice were identified. The prep was adequate. The scope was then slowly retracted over 17 minutes back into the rectum. Polyps were removed with cold forceps in the cecum, ascending colon and Transverse colon. The scope was removed and the patient was woken up and taken back to Same day surgery in stable condition. The patient tolerated the procedure well and there were no immediate complications. Follow up: The patient should follow up in 3-5 years unless they develop changes in bowel habits or other new gastrointestinal complaints.
[2019-04-27] MEDS: Lactated Ringers 1,000 ML 80 ML IV (06:45)
--- NOTE | 2019-04-27 06:45 | W.PM.DSUDISC ---
Discharge Plan Disposition Patient Disposition: HOME Condition: Good Discharge Details Reason For Visit: Hx of polyps Attending Provider: Sona Monroy Primary Care Provider: Denny Rodas Home Meds and New Rx's Prescriptions: Continued latanoprost [Xalatan] 0.005 % drops 1 drp ophthalmic (eye) QPM RF: 0 levothyroxine 75 mcg tablet 75 mcg PO DAILY Qty: 90 RF: 3 multivitamin [Daily Multi-Vitamin] 1 EACH tablet 1 ea PO DAILY RF: 0 ascorbic acid (vitamin C) [Vitamin C] 500 MG tablet,chewable 500 mg PO DAILY RF: 0 calcium carbonate [Tums] 300 MG tablet,chewable 300 mg PO BID RF: 0 cranberry extract 250 MG capsule 250 mg PO BID RF: 0 folic acid 0.8 MG tablet 0.8 mg PO DAILY RF: 0 cholecalciferol (vitamin D3) 1,000 UNIT capsule 25 mcg PO DAILY RF: 0 magnesium oxide 400 MG capsule 400 mg PO DAILY RF: 0 hydroxyzine HCl 25 MG tablet 25 mg PO Q4H PRN Qty: 120 RF: 3 naproxen sodium 550 MG tablet 550 mg PO BID PRN Qty: 60 RF: 3 metoprolol succinate 50 mg tablet extended release 24 hr 50 mg PO DAILY Qty: 90 RF: 3 metoprolol succinate 25 mg tablet extended release 24 hr 25 mg PO DAILY Qty: 90 RF: 3 gabapentin 300 mg capsule 300 mg PO BID Qty: 180 RF: 3 lamotrigine 200 mg tablet extended release 24hr 200 mg PO BID Qty: 180 RF: 3 sumatriptan succinate [Imitrex] 25 mg tablet 25 mg PO ONCE PRN (Reason: headache) Qty: 18 RF: 11 lisinopril 5 mg tablet 5 mg PO DAILY Qty: 90 RF: 6 aspirin [Aspirin Low Dose] 81 mg Tablet,Delayed Release (Dr/Ec) 81 mg PO DAILY RF: 0 lisinopril 10 mg tablet 10 mg PO DAILY RF: 0 Discontinued polyethylene glycol 3350 17 gram/dose powder 238 g PO ONCE Qty: 238 RF: 0 bisacodyl [Dulcolax (bisacodyl)] 5 mg tablet,delayed release (DR/EC) 5 mg PO ONCE Qty: 4 RF: 0 Discharge Instructions Instructions: Colorectal Polyps (DC), Hemorrhoids (DC) Additional Instructions: Findings: 3 pre-cancerous polyps Small internal hemorrhoids Follow up: 3-5 years Please call if you develop: fevers >101.5 Nausea or Vomiting Abdominal pain that is not transient DAY SURGERY UNIT POST ENDOSCOPY INSTRUCTIONS 1. Because there will be medication in your system for the next 24 hours, you may feel a little sleepy. Your coordination will be affected. Therefore: a. Do not drive or operate dangerous equipment for 24 hours. b. Do not drink alcohol beverages for 24 hours (not even beer). c. Plan to go home and rest for the day. 2. Generally there are no restrictions on your activity after a day or so has gone by, but you may feel a bit fatigued for a few days. 3 After you arrive home you may have a light meal and return to a normal diet as you can tolerate it without feeling sick to your stomach. 4. After surgery, you may feel pain or discomfort. This should be only transient, but if it persists please contact your doctor. 5. If there are any questions regarding the findings of your procedure, please feel free to contact your doctor. 6. If you are unable to contact your doctor with a problem, contact the hospital at [phone]. 7. Continue all your regular medications unless directed otherwise. I understand the above instructions and have no questions. Signature of Patient or Responsible Adult Escort Date/Time Name of Responsible Adult Escort Signature of Nurse Date/Time Activity:: Activity as Tolerated Diet:: High Fiber Discharge Orders Discharge Orders: Discharge Order (Routine); Ordered 04/27/19 Ordered By: Sona Monroy DS: Diagnosis Discharge Diagnosis (1) Colorectal polyps: Status: Acute (2) Internal hemorrhoids: Status: Acute
--- NOTE | 2019-04-27 07:27 | BOWEL_PTH ---
PATIENT: Gia Macario LOC: [facility] U#:[id number] AGE/SX: 64/F ROOM: RE04/27/[address]: Sona Monroy MD : [id number] BED: DIS: 04/27/2019 SPEC #: [id number] RECD: 04/27/19 13:07 STATUS: PHILL RE #: [id number] JEFRY: 04/27/19 07:[address]: Sona Monroy DEPT: Surgical Specimen RECD BY: Gracia Campbell ENTERED: 04/27/19 13:08 SP TYPE: Bowel OTHR DR: Denny Rodas MD Tissues: 1 - BIOPSY BOWEL 2 - BIOPSY BOWEL 3 - BIOPSY BOWEL Procedures: GROSS AND MICRO LEVEL 4 Comments: [id number]
[2019-04-27 09:22] VITALS: BP 141/85; PULSE 67; RESP 18; TEMP 36.6; O2SAT 99
== END 2019-04-27 09:15 | disposition home or self-care (01) ==
LOC: SUR 07:38
PROVIDERS: PCP Family Medicine; Visit Provider Surgery
PROC: 0DJD8ZZ Inspection of Lower Intestinal Tract, Via Natural or Artificial Opening Endoscopic (ICD-10-PCS; CPT 45378; principal; 2019-04-27 07:30)
DX: Z12.11 Encounter for screening for malignant neoplasm of colon (principal); D12.0 Benign neoplasm of cecum; D12.2 Benign neoplasm of ascending colon; D12.3 Benign neoplasm of transverse colon; K64.0 First degree hemorrhoids; Z86.010 Personal history of colon polyps; I10 Essential (primary) hypertension; G47.33 Obstructive sleep apnea (adult) (pediatric)
CPT/HCPCS: 45380; 88305; J2704

== ENCOUNTER → 2019-05-09 11:30 | Outpatient (BNVA) | payer MEDICARE, OTHER, SELFPAY | PROVIDERS: PCP Family Medicine; Referring Provider Family Medicine; Visit Provider Internal Medicine Cardiovascular Disease | DX: I42.2 Other hypertrophic cardiomyopathy (principal); I10 Essential (primary) hypertension; R06.02 Shortness of breath | CPT/HCPCS: 99214 ==

== ENCOUNTER 2019-05-13 02:07 | Outpatient (CLI) | payer MEDICARE, OTHER, SELFPAY ==
[2019-05-13] MEDS: Albuterol HFA 18 GM 200 PUFF INH IH (09:10)
[2019-05-13] MEDS: Inhaler, Assist Device 1 EACH MC (09:10)
--- NOTE | 2019-05-13 09:25 | PFT_ITS ---
PULMONARY FUNCTION TEST REPORT DATE OF SERVICE: May 13, 2019 REQUESTING PROVIDER: Dr. Lockhart Spirometry shows mild obstructive airways disease with no significant bronchodilator response. Lung volumes show no evidence of restriction. Diffusion capacity moderately reduced, even when corrected to alveolar volume. Airways resistance normal. IMPRESSION: Borderline mild obstructive airways disease with no significant bronchodilator response. This is associated with moderate diffusion defect. Clinical correlation recommended. MARINA/evelina D/
== END 2019-05-13 02:27 ==
PROVIDERS: PCP Family Medicine; Visit Provider Internal Medicine Cardiovascular Disease
DX: R06.02 Shortness of breath (principal); J98.8 Other specified respiratory disorders
CPT/HCPCS: 94060; 94726; 94729

== ENCOUNTER 2019-06-08 01:39 | Outpatient (CLI) | payer MEDICARE, OTHER, SELFPAY ==
--- NOTE | 2019-06-08 13:01 | DI.MAMMO_ITS ---
EXAM: MG MAMMO SCREENING CLINICAL HISTORY: screening TECHNIQUE: Mammograms were interpreted according to the usual protocol including computer analysis w [employer] CAD system, tomosynthesis and C-view imaging. COMPARISON: 2011 through 2018 FINDINGS: The breasts are composed of scattered fibroglandular densities, Breast Density category B. No suspicious masses or suspicious microcalcifications are seen. No skin thickening or abnormal axillary lymph nodes are seen. There has been no significant change from prior exams. IMPRESSION: BIRADS Category 1, negative mammogram. Yearly screening mammography is recommended.
== END 2019-06-08 01:59 ==
PROVIDERS: PCP Family Medicine; Visit Provider Nurse Practitioner Family
DX: Z12.31 Encounter for screening mammogram for malignant neoplasm of breast (principal)
CPT/HCPCS: 77063; 77067

== ENCOUNTER 2019-06-13 08:48 | Outpatient (CLI) | payer MEDICARE, OTHER, SELFPAY ==
--- NOTE | 2019-06-13 | DI.MAMMO_ITS ---
EXAM: MG MAMMO SCREEN CALL BACK UNI CLINICAL HISTORY: THERE IS MOTION IN LEFT MLO VIEW, REPEAT LEFT MLO VIEW AT NO CHARGE TECHNIQUE: Mammograms were interpreted according to the usual protocol including computer analysis w [facility] CAD system, tomosynthesis and C-view imaging. COMPARISON: 2011 through 2018 FINDINGS: A repeat left MLO view was performed due to motion on the initial exam. Today's images show no evide nce of motion. The breasts are composed of scattered fibroglandular densities, Breast Density category B. No suspicious masses or suspicious microcalcifications are seen. No skin thickening or abnormal axillary lymph nodes are seen. There has been no significant change from prior exams. IMPRESSION: BIRADS Category 1, negative mammogram. Yearly screening mammography is recommended.
== END 2019-06-13 09:08 ==
PROVIDERS: PCP Family Medicine; Visit Provider Nurse Practitioner Family
DX: Z12.31 Encounter for screening mammogram for malignant neoplasm of breast (principal); R92.8 Other abnormal and inconclusive findings on diagnostic imaging of breast; N64.59 Other signs and symptoms in breast
CPT/HCPCS: 77063; 77067

== ENCOUNTER 2019-08-31 16:32 | Emergency (ER) | payer MEDICARE, OTHER, SELFPAY ==
[2019-08-31 16:30] VITALS: BP 143/85; PULSE 70; RESP 16; TEMP 37.2; O2SAT 97
[2019-08-31] MEDS: Normal Saline 1,000 ML 1000 ML IV (17:10)
[2019-08-31] MEDS: Normal Saline Flush 10 ML SYR IVP (17:19)
[2019-08-31 17:28] LABS: Abs Immature Grans 0.01 k/cumm (0.0-0.09); Absolute Basophil Count 0.02 k/cumm (0.0-0.2); Absolute Eosinophil Count 0.04 k/cumm (0.0-0.7); Absolute Monocyte Count 0.51 k/cumm (0.11-0.7); Absolute Neutrophil Count 4.08 k/cumm (1.2-6.7); Basophils % 0.3; Eosinophils % 0.6; HCT 46.1 % (36.0-46.0); HGB 15.7 g/dL (12.0-15.5); Immature Grans % 0.2 %; Lymphocytes % 25.6; Mean Corp. HGB Concentration 34.1 g/dL (32.0-36.0); Mean Corpuscular Hemoglobin 28.2 pg (27.0-33.0); Mean Corpuscular Volume 82.8 fL (80-95); Mean Platelet Volume 11.1 fL (8.0-11.0); Monocytes % 8.1; Neutrophils % 65.2; Platelet Count 231 x1000/uL (130-400); RBC 5.57 m/cumm (4.00-5.20); RBC Distribution Width 14.5 % (11.7-14.6); White Blood Cell Count 6.26 k/cumm (4.4-10.8)
[2019-08-31 17:29] LABS: Lactate 1.7 mmol/L (0.6-1.4)
--- NOTE | 2019-08-31 17:30 | DI.CT_ITS ---
EXAM: CT ABDOMEN PELVIS W CLINICAL HISTORY: Periumbilical pain, poor appetite, lactate of 1.7 TECHNIQUE: Imaging Protocol: Axial computed tomography images with coronal and sagittal reformatted images were created and reviewed CONTRAST MATERIAL: Intravenous: Omnipaque 350 Contrast volume:100 mL Oral: yes / no COMPARISON: CT ABD PELVIS WITH CONTRAST from 01/16/2017 FINDINGS: ABDOMEN: Lung Bases: Normal where visualized. Liver: Normal density. No measurable mass. Portal, Superior Mesenteric, and Splenic Veins: Unremarkable. Gallbladder and Biliary Tract: No radiodense calculus or dilation. Pancreas: Normal density, no abnormal calcifications or inflammatory process. Spleen: Normal. Adrenals: No masses seen. Kidneys: Normal size, contour and axis. No radiodense stones or obstructive uropathy. Simple left jose al cyst. Bilateral extrarenal pelves. Abdominal Aorta: Abdominal portion non-dilated. Mild atherosclerosis. Bowel: No obstruction or bowel wall thickening. No evidence of acute appendicitis. Peritoneal Cavity: No ascites, collection or mesenteric inflammatory response. A ventriculoperitoneal shunt is again noted. Lymph Nodes: Within normal limits. Bones: Degenerative changes in the spine particularly at L5-S1. Soft Tissues: Right-sided perennial varices. These can be asymptomatic versus a source of pain and p ressure. PELVIS: Bladder: Symmetric distention, no gross wall thickening. Reproductive Organs: Unremarkable as visualized. Prominent vascularity around the uterus. This can b e seen with pelvic congestion syndrome. Lymph Nodes: Within normal limits. Bones: Degenerative changes in the spine. IMPRESSION: No acute abdominal or pelvic process. RADIATION DOSE DELIVERED: 838.69mGy.cm Total DLP DATA REPOSITORY: All CT scans at this facility are submitted to the National Radiology Data Registry (NRDR) Dose Index Registry (DIR) with the [employer] (ACR). RADIATION OPTIMIZATION: All CT scans at this facility use at least one of these dose optimization te chniques: automated exposure control; mA and/or kV adjustment per patient size (includes targeted exa ms where dose is matched to clinical indication); or iterative reconstruction.
[2019-08-31 17:41] LABS: PTT Activated 24.6 sec (21.0-31.4); Prothrombin Time 10.1 sec (9.3-11.0)
[2019-08-31 17:42] LABS: Lipase 154 U/L (73-393)
[2019-08-31 17:47] LABS: ALT 43 U/L (14-59); AST 28 U/L (15-37); Albumin 4.1 g/dL (3.4-5.0); Alkaline Phosphatase 107 U/L (46-116); Anion Gap 8.5 mmol/L (3-11); BUN 15 mg/dL (7-18); Bilirubin, Total 0.6 mg/dL (0.2-1.0); CO2 28.5 mmol/L (21.0-32.0); CREATININE 1.01 mg/dL (0.55-1.02); Chloride 102 mmol/L (98-107); Estimated GFR 54.84 (mL/min/1.73m2); Glucose 99 mg/dL (74-106); Potassium 3.4 mmol/L (3.5-5.1); Sodium 139 mmol/L (136-145); Total Protein 8.1 g/dL (6.4-8.2)
[2019-08-31 17:52] LABS: Bilirubin Negative (Negative); Blood Negative (Negative); Clarity Clear (Clear); Glucose Negative (Negative); Ketones Negative (Negative); Leukocyte Esterase Small (Negative); Nitrite Negative (Negative); Urobilinogen 0.2 EU/dL (Up TO 0.2)
[2019-08-31 17:52] LABS: Troponin I < 0.05 ng/Ml (<0.06)
[2019-08-31] MEDS: Omnipaque 350 MG/ML 100 ML BTL IJ (18:04)
[2019-08-31] MEDS: Normal Saline - Diluent 50 ML VIAL IV (18:04)
[2019-08-31 18:05] LABS: Bacteria Negative HPF (Negative); C & S Indicated? Yes; Casts Negative LPF (Negative); Crystals Negative HPF (Negative); Epithelial Cells Few HPF (Negative); Mucus Negative (Negative); Other Cells Few Transitional (Negative); RBC Negative HPF (0-2); WBC 20-50 HPF (0-5)
--- NOTE | 2019-08-31 18:27 | DI.VRAD_ITS ---
PROCEDURE INFORMATION: Exam: CT Abdomen And Pelvis With Contrast Exam date and time: 08/31/2019 18:04 Age: 64 years old Clinical indication: Generalized; Patient HX: Periumbilical pain, poor appetite lactate of 1.7 per er physician. Patient states abdominal pain since Thursday. TECHNIQUE: Imaging protocol: Computed tomography of the abdomen and pelvis with intravenous contrast. Radiation optimization: All CT scans at this facility use at least one of these dose optimization techniques: automated exposure control; mA and/or kV adjustment per patient size (includes targeted exams where dose is matched to clinical indication); or iterative reconstruction. 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 Liver: Fatty liver with no mass lesions. Gallbladder and bile ducts: No calcified stones. No ductal dilation. Pancreas: No ductal dilation. No masses. Spleen: No splenomegaly or focal lesions. Adrenals: No mass. Kidneys and ureters: Prominence of the right renal pelvis without calyceal dilation, favor benign extra-renal pelvis. Prominence of the left renal pelvis without calyceal dilation, favor benign extra-renal pelvis. No renal masses. Benign-appearing left renal cyst. Prominent gonadal vasculature for the patient's age left greater than right. Can be seen in pelvic congestion syndrome, can also be asymptomatic. No aortic aneurysm. Stomach and bowel: No obstruction. No mucosal thickening. Appendix: No evidence of appendicitis. Intraperitoneal space: No free air. No significant fluid collection. Vasculature: Right-sided perineal varices. Also can be asymptomatic, versus a source of pain and pressure. Lymph nodes: No significantly enlarged lymph nodes. Bladder: Unremarkable as visualized. Reproductive: The uterus is present with somewhat prominent surrounding vascularity. Bones/joints: Disc disease L5-S1. No acute fracture or subluxation. Soft tissues: No suspicious lesions. IMPRESSION: 1. No acute findings. No source of acute pain or infection is identified. 2. Additional findings as described. Dictated and Authenticated by: Anju Reyez MD. Ordering:ORLY Tucker MD
[2019-08-31 19:06] VITALS: BP 134/80; PULSE 77; RESP 16; TEMP 36.6; O2SAT 98
[2019-08-31 19:09] LABS: Lactate 0.8 mmol/L (0.6-1.4)
--- NOTE | 2019-08-31 19:13 | W.ED.GENAD ---
Discharge Plan Disposition Patient Disposition: HOME Condition: Stable Discharge Details Chief Complaint: Nausea/Vomit/Diar Clinical Impression: Acute UTI, Abdominal pain Primary Care Provider: Denny Rodas ED Provider: Garrett Pace Home Meds and New Rx's Prescriptions: New cephalexin [Keflex] 500 mg capsule 500 mg PO Q12H Qty: 10 RF: 0 ondansetron HCl [Zofran] 4 mg tablet 4 mg PO Q8H PRNQty: 10 RF: 0 Continued latanoprost [Xalatan] 0.005 % drops 1 drp ophthalmic (eye) QPM RF: 0 cyclobenzaprine 10 mg tablet 10 mg PO HS PRN (Reason: muscle spasm) Qty: 20 RF: 0 levothyroxine 75 mcg tablet 75 mcg PO DAILY Qty: 90 RF: 3 metoprolol succinate 100 mg tablet extended release 24 hr 100 mg PO DAILY Qty: 90 RF: 6 lisinopril 20 mg tablet 20 mg PO BID Qty: 180 RF: 6 multivitamin [Daily Multi-Vitamin] 1 EACH tablet 1 ea PO DAILY RF: 0 ascorbic acid (vitamin C) [Vitamin C] 500 MG tablet,chewable 500 mg PO DAILY RF: 0 calcium carbonate [Tums] 300 MG tablet,chewable 300 mg PO BID RF: 0 cranberry extract 250 MG capsule 250 mg PO BID RF: 0 folic acid 0.8 MG tablet 0.8 mg PO DAILY RF: 0 cholecalciferol (vitamin D3) 1,000 UNIT capsule 25 mcg PO DAILY RF: 0 hydroxyzine HCl 25 MG tablet 25 mg PO Q4H PRN Qty: 120 RF: 3 naproxen sodium 550 MG tablet 550 mg PO BID PRN Qty: 60 RF: 3 gabapentin 300 mg capsule 300 mg PO BID Qty: 180 RF: 3 lamotrigine 200 mg tablet extended release 24hr 200 mg PO BID Qty: 180 RF: 3 sumatriptan succinate [Imitrex] 25 mg tablet 25 mg PO ONCE PRN (Reason: headache) Qty: 18 RF: 11 magnesium oxide 400 mg magnesium capsule 400 mg PO DAILY RF: 0 amlodipine 5 mg tablet 5 mg PO DAILY Qty: 90 RF: 6 aspirin [Aspirin Low Dose] 81 mg Tablet,Delayed Release (Dr/Ec) 81 mg PO DAILY RF: 0 Discharge Instructions Instructions: Urinary Tract Infection in Women (ED), Abdominal Pain (ED) Additional Instructions: Zofran and Keflex as directed. Plenty of fluids to avoid dehydration. Please watch for new or worsening symptoms and return to the ER for any concerns. You should be receiving a phone call tomorrow to establish a time for COVID testing. I do recommend reaching out your primary care provider tomorrow for prompt outpatient reevaluation Stand Alone Forms: POSITIVE COVID-19/TO BE TESTED Discharge Data Discharge Date/Time-TO BE ENTERED AT DEPARTURE: 08/31/19 19:30 Medical Decision Making 64-year-old female with extensive past medical history presents via EMS for progressive nausea over the past few days now with generalized weakness and abdominal pain. No focal weakness. She was given Zofran via EMS and reports her nausea is greatly improved. She appears well, nontoxic and is neurologically intact. Denies any chest pain, shortness of breath, fever, low suspicion for COVID but we can certainly set her up for testing tomorrow. Extremely low suspicion for ACS, given the duration of her symptoms I believe a single troponin and EKG suspicion for cardiac rule out. Will obtain CBC, CMP, lipase, urinalysis, lactate and reassess. In the slightly elevated lactate and in setting of abdominal pain, will obtain CT abdomen pelvis with contrast. WBC 6.26 hemoglobin 15.7 hematocrit 46.1 platelet count 231. Sodium 139, potassium 3.4, chloride 102, creatinine 1.01 resulting in GFR of 54.84, glucose 99. Lactate 1.7, magnesium 2, troponin less than 0.05, lipase 154. Urinalysis reveals small leukocyte esterase, white blood cell count 20-50 CT abdomen and pelvis read by virtual radiology as no acute findings, no source of acute pain infections is identified. Multiple incidental findings Given patient's abdominal discomfort, generalized weakness, urinalysis with leuk esterase and 20-50 white cells I do believe treating her for a UTI is perfectly reasonable. She appears well, nontoxic. She is afebrile. She was given a single liter of IV fluid and repeat lactate was 0.8. Discussed work-up, CT imaging, repeat lactate with patient in length. She is agreeable to treating for UTI, encouraged to return to the ER for new or worsening symptoms, otherwise contact her primary care provider tomorrow. Will give first dose of Keflex now. Appropriate paperwork completed for COVID testing tomorrow. Patient has no additional questions or concerns and will be provided a prescription for Zofran at her request and a prescription for Keflex. Medical Records Medical records reviewed: Yes I reviewed the patient's medical records. Lab Data Lab results reviewed: Yes I reviewed the patient's lab results. Lab results narrative: 08/31/19 17:40 Urine - Reflex from Ua Urine Culture - Pending Laboratory Tests Range/Units 08/31/19 08/31/19 08/31/19 17:05 17:05 17:05 WBC (4.4-10.8) k/cumm RBC (4.00-5.20) m/cumm Hgb (12.0-15.5) g/dL Hct (36.0-46.0) % MCV (80-95) fL MCH (27.0-33.0) pg MCHC (32.0-36.0) g/dL RDW (11.7-14.6) % Plt Count (130-400) x1000/uL MPV (8.0-11.0) fL Immature Gran % % Neutrophils % Lymphocytes % Monocytes % Eosinophils % Basophils % Absolute Neutrophils (1.2-6.7) k/cumm Absolute Lymphocytes (1.2-3.4) k/cumm Absolute Monocytes (0.11-0.7) k/cumm Absolute Eosinophils (0.0-0.7) k/cumm Absolute Basophils (0.0-0.2) k/cumm PT (9.3-11.0) sec 10.1 INR (0.9-1.1) 1.0 APTT (21.0-31.4) sec 24.6 Sodium (136-145) mmol/L Potassium (3.5-5.1) mmol/L Chloride (98-107) mmol/L Carbon Dioxide (21.0-32.0) mmol/L Anion Gap (3-11) mmol/L BUN (7-18) mg/dL Creatinine (0.55-1.02) mg/dL Estimated GFR/1.73 m2 (mL/min/1.73m2) Glucose (74-106) mg/dL Lactate (0.6-1.4) mmol/L 1.7 H Calcium (8.5-10.1) mg/dL Magnesium (1.8-2.4) mg/dL Total Bilirubin (0.2-1.0) mg/dL AST (15-37) U/L ALT (14-59) U/L Alkaline Phosphatase (46-116) U/L Troponin I (<0.06) ng/Ml Total Protein (6.4-8.2) g/dL Albumin (3.4-5.0) g/dL Lipase (73-393) U/L 154 Urine Color (Yellow) Urine Clarity (Clear) Urine pH (5-8) Ur Specific Foster (1.005-1.025) Urine Protein (Negative) mg/dL Urine Ketones (Negative) mg/dL Urine Blood (Negative) Urine Nitrite (Negative) Urine Bilirubin (Negative) Urine Urobilinogen (Up TO 0.2) EU/dL Ur Leukocyte Esterase (Negative) Urine RBC (0-2) HPF Urine WBC (0-5) HPF Ur Epithelial Cells (Negative) HPF Urine Crystals (Negative) HPF Urine Bacteria (Negative) HPF Urine Casts (Negative) LPF Urine Mucus (Negative) Urine Other (Negative) Ur Culture Indicated? Urine Glucose (Negative) mg/dL Range/Units 08/31/19 08/31/19 08/31/19 17:05 17:05 17:40 WBC (4.4-10.8) k/cumm 6.26 RBC (4.00-5.20) m/cumm 5.57 H Hgb (12.0-15.5) g/dL 15.7 H Hct (36.0-46.0) % 46.1 H MCV (80-95) fL 82.8 MCH (27.0-33.0) pg 28.2 MCHC (32.0-36.0) g/dL 34.1 RDW (11.7-14.6) % 14.5 Plt Count (130-400) x1000/uL 231 MPV (8.0-11.0) fL 11.1 H Immature Gran % % 0.2 Neutrophils % 65.2 Lymphocytes % 25.6 Monocytes % 8.1 Eosinophils % 0.6 Basophils % 0.3 Absolute Neutrophils (1.2-6.7) k/cumm 4.08 Absolute Lymphocytes (1.2-3.4) k/cumm 1.60 Absolute Monocytes (0.11-0.7) k/cumm 0.51 Absolute Eosinophils (0.0-0.7) k/cumm 0.04 Absolute Basophils (0.0-0.2) k/cumm 0.02 PT (9.3-11.0) sec INR (0.9-1.1) APTT (21.0-31.4) sec Sodium (136-145) mmol/L 139 Potassium (3.5-5.1) mmol/L 3.4 L Chloride (98-107) mmol/L 102 Carbon Dioxide (21.0-32.0) mmol/L 28.5 Anion Gap (3-11) mmol/L 8.5 BUN (7-18) mg/dL 15 Creatinine (0.55-1.02) mg/dL 1.01 Estimated GFR/1.73 m2 (mL/min/1.73m2) 54.84 Glucose (74-106) mg/dL 99 Lactate (0.6-1.4) mmol/L Calcium (8.5-10.1) mg/dL 10.0 Magnesium (1.8-2.4) mg/dL 2.0 Total Bilirubin (0.2-1.0) mg/dL 0.6 AST (15-37) U/L 28 ALT (14-59) U/L 43 Alkaline Phosphatase (46-116) U/L 107 Troponin I (<0.06) ng/Ml < 0.05 Total Protein (6.4-8.2) g/dL 8.1 Albumin (3.4-5.0) g/dL 4.1 Lipase (73-393) U/L Urine Color (Yellow) Yellow Urine Clarity (Clear) Clear Urine pH (5-8) 8.0 Ur Specific Foster (1.005-1.025) 1.020 Urine Protein (Negative) mg/dL Trace H Urine Ketones (Negative) mg/dL Negative Urine Blood (Negative) Negative Urine Nitrite (Negative) Negative Urine Bilirubin (Negative) Negative Urine Urobilinogen (Up TO 0.2) EU/dL 0.2 Ur Leukocyte Esterase (Negative) Small H Urine RBC (0-2) HPF Negative Urine WBC (0-5) HPF 20-50 H Ur Epithelial Cells (Negative) HPF Few Urine Crystals (Negative) HPF Negative Urine Bacteria (Negative) HPF Negative Urine Casts (Negative) LPF Negative Urine Mucus (Negative) Negative Urine Other (Negative) Few transitional Ur Culture Indicated? Yes Urine Glucose (Negative) mg/dL Negative Range/Units 08/31/19 19:05 WBC (4.4-10.8) k/cumm RBC (4.00-5.20) m/cumm Hgb (12.0-15.5) g/dL Hct (36.0-46.0) % MCV (80-95) fL MCH (27.0-33.0) pg MCHC (32.0-36.0) g/dL RDW (11.7-14.6) % Plt Count (130-400) x1000/uL MPV (8.0-11.0) fL Immature Gran % % Neutrophils % Lymphocytes % Monocytes % Eosinophils % Basophils % Absolute Neutrophils (1.2-6.7) k/cumm Absolute Lymphocytes (1.2-3.4) k/cumm Absolute Monocytes (0.11-0.7) k/cumm Absolute Eosinophils (0.0-0.7) k/cumm Absolute Basophils (0.0-0.2) k/cumm PT (9.3-11.0) sec INR (0.9-1.1) APTT (21.0-31.4) sec Sodium (136-145) mmol/L Potassium (3.5-5.1) mmol/L Chloride (98-107) mmol/L Carbon Dioxide (21.0-32.0) mmol/L Anion Gap (3-11) mmol/L BUN (7-18) mg/dL Creatinine (0.55-1.02) mg/dL Estimated GFR/1.73 m2 (mL/min/1.73m2) Glucose (74-106) mg/dL Lactate (0.6-1.4) mmol/L 0.8 Calcium (8.5-10.1) mg/dL Magnesium (1.8-2.4) mg/dL Total Bilirubin (0.2-1.0) mg/dL AST (15-37) U/L ALT (14-59) U/L Alkaline Phosphatase (46-116) U/L Troponin I (<0.06) ng/Ml Total Protein (6.4-8.2) g/dL Albumin (3.4-5.0) g/dL Lipase (73-393) U/L Urine Color (Yellow) Urine Clarity (Clear) Urine pH (5-8) Ur Specific Foster (1.005-1.025) Urine Protein (Negative) mg/dL Urine Ketones (Negative) mg/dL Urine Blood (Negative) Urine Nitrite (Negative) Urine Bilirubin (Negative) Urine Urobilinogen (Up TO 0.2) EU/dL Ur Leukocyte Esterase (Negative) Urine RBC (0-2) HPF Urine WBC (0-5) HPF Ur Epithelial Cells (Negative) HPF Urine Crystals (Negative) HPF Urine Bacteria (Negative) HPF Urine Casts (Negative) LPF Urine Mucus (Negative) Urine Other (Negative) Ur Culture Indicated? Urine Glucose (Negative) mg/dL HPI General Mode of arrival: EMS. Date/Time Provider Initiated Documentation: 08/31/19 16:40. Limitations to Documentation: no limitations. Information obtained by: patient. HPI Narrative: This is a 64-year-old female with history of brain abscess, epilepsy, hypothyroidism, renal stones, migraines, vertigo, essential tremor, hypertension, presenting to the ER this evening via EMS stating that she began having nausea 3 days ago. The nausea has progressively gotten worse although denies any dry heaving or vomiting. Reading the triage note it appears as though she admitted to [facility] then. She reports to me over the past 12 hours or so having dizziness, upon clarification she reports general weakness. She does not feel as though the room is spinning, she has a history of vertigo and this does not feel the same. She reports feeling lightheaded and having generalized weakness. Today she developed some abdominal discomfort around her umbilicus that she reports as moderate in nature. When the pain is present it is sharp. She denies fever, chest pain, shortness of breath, back pain, dysuria, hematuria, diarrhea or constipation. She does admit to a decreased appetite. She contacted her primary care provider who recommended coming to the ER, specifically requesting COVID testing. She denies any sick exposure or recent travel. Related Data Home Medications Medication Instructions Recorded Confirmed ascorbic acid (vitamin C) [Vitamin 500 mg PO DAILY tab.chew 07/24/14 08/31/19 C] multivitamin [Daily Multi-Vitamin] 1 ea PO DAILY 07/24/14 08/31/19 calcium carbonate [Tums] 300 mg PO BID tab.chew 08/28/14 08/31/19 cranberry extract 250 mg PO BID 01/21/17 08/31/19 folic acid 0.8 mg PO DAILY tab-cap 01/29/17 08/31/19 cholecalciferol (vitamin D3) 25 mcg PO DAILY 02/17/17 08/31/19 hydroxyzine HCl 25 mg PO Q4H PRN #120 tab-cap 09/21/17 08/31/19 naproxen sodium 550 mg PO BID PRN #60 tab-cap 10/14/17 08/31/19 gabapentin 300 mg capsule 300 mg PO BID #180 cap 10/21/18 08/31/19 latanoprost 0.005 % eye drops 1 drp OPHTHALMIC (EYE) QPM 12/22/18 08/31/19 aspirin [Aspirin Low Dose] 81 mg PO DAILY 01/16/19 08/31/19 levothyroxine 75 mcg tablet 75 mcg PO DAILY #90 tab-cap 02/01/19 08/31/19 lamotrigine 200 mg tablet,extended 200 mg PO BID #180 tab 02/09/19 08/31/19 release 24 hr sumatriptan succinate 25 mg tablet 25 mg PO ONCE PRN #18 tab-cap 03/03/19 08/31/19 lisinopril 20 mg tablet 20 mg PO BID #180 tab 05/09/19 08/31/19 magnesium oxide 400 mg PO DAILY 05/09/19 08/31/19 metoprolol succinate 100 mg 100 mg PO DAILY #90 tab 05/09/19 08/31/19 tablet,extended release 24 hr amlodipine 5 mg tablet 5 mg PO DAILY #90 tab 06/20/19 08/31/19 cyclobenzaprine 10 mg tablet 10 mg PO HS PRN #20 tab 07/29/19 08/31/19 cephalexin [Keflex] 500 mg PO Q12H #10 cap 08/31/19 ondansetron HCl [Zofran] 4 mg PO Q8H PRN #10 tab 08/31/19 Previous Rx's Medication Instructions Recorded hydroxyzine HCl 25 mg PO Q4H PRN #120 tab-cap 09/21/17 naproxen sodium 550 mg PO BID PRN #60 tab-cap 10/14/17 gabapentin 300 mg capsule 300 mg PO BID #180 cap 10/21/18 levothyroxine 75 mcg tablet 75 mcg PO DAILY #90 tab-cap 02/01/19 lamotrigine 200 mg tablet,extended 200 mg PO BID #180 tab 02/09/19 release 24 hr sumatriptan succinate 25 mg tablet 25 mg PO ONCE PRN #18 tab-cap 03/03/19 lisinopril 20 mg tablet 20 mg PO BID #180 tab 05/09/19 metoprolol succinate 100 mg 100 mg PO DAILY #90 tab 05/09/19 tablet,extended release 24 hr amlodipine 5 mg tablet 5 mg PO DAILY #90 tab 06/20/19 cyclobenzaprine 10 mg tablet 10 mg PO HS PRN #20 tab 07/29/19 cephalexin [Keflex] 500 mg PO Q12H #10 cap 08/31/19 ondansetron HCl [Zofran] 4 mg PO Q8H PRN #10 tab 08/31/19 Allergies Allergy/AdvReac Type Severity Reaction Status Date / Time No Known Allergies Allergy Verified 08/31/19 16:37 General Stated Complaint: Nausea/Vomit/Diar DOMINGA: 3 Review of Systems Constitutional Constitutional: Denies fatigue, Denies fever(s), Denies headache(s), Reports poor appetite and Reports weakness Eyes Eyes: Denies change in vision ENT Ears, Nose, Mouth, and Throat: Denies headache(s) and Denies throat swelling Cardiovascular Cardiovascular: Denies chest pain and Denies dyspnea Respiratory Respiratory: Denies cough and Denies dyspnea Gastrointestinal Gastrointestinal: Reports abdominal pain, Denies diarrhea, Reports nausea and Denies vomiting Genitourinary Genitourinary: Denies dysuria Musculoskeletal Musculoskeletal: Denies back pain, Denies numbness and Denies tingling Integumentary/Breasts Skin/Breast: Denies rash Neurologic Neurologic: Denies headache(s), Denies numbness, Denies tingling and Reports weakness Endocrine Endocrine: Denies fatigue Allergic/Immunologic Allergic/Immunologic: Denies throat swelling [facility] Medical History Basal cell carcinoma of face (Acute) Brain abscess (Resolved) 1971; 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 Sz at night. Currently stable on Lamictal. Last seizure 2009 Cyst of breast, right, solitary 2013 Cat 2 2014.unchanged in appearance 04/2016 4.7mm R breast cyst. Displaced transverse fracture of right patella, subsequent encounter for closed fracture with malunion (Resolved 08/01/16) Dyspareunia (Resolved) clitoral pain. Compounded vaginal E2 cream thru [facility] not effective. Elbow fracture, left (Resolved) Glaucoma (Acute 03/14/15) Hypothyroidism (Chronic) Kidney stone (Acute 08/24/14) Migraine without aura and without status migrainosus, not intractable (Acute 03/23/17) SHERLY (obstructive sleep apnea) (Chronic) does not use device Osteopenia (Acute) Pancreatitis (Resolved 01/16/17) Valproic acid toxicity (Resolved) 2016. Hospitalized at [facility] [place]. Significant recovery. Surgical History section (~1989) Dilation and curettage LAMINECTOMY LUMBAR Ligation of fallopian tube ORIF R Patella 02/13/16 S/P colonoscopy (Acute ~04/27/19) 2013- Tubular adenoma Tonsillectomy VENTRICULAR SHUNT after I+D of brain abcess. No issues. Family History Mother , age 94 CHF (congestive heart failure) A-fib Hypertension Father , age 78 Essential hypertension Multiple myeloma Brother Essential hypertension Heart disease MVR Maternal Grandfather No problems noted. Paternal Grandfather Stroke Maternal Grandmother No problems noted. Paternal Grandmother No problems noted. Son No problems noted. Daughter No problems noted. 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 Pets and animals: Yes Pets and animals: dog(s) Do you think of yourself as: straight/heterosexual Current gender identity: female What is your relationship status?: How often do you talk on the phone with friends or family?: three or more times per week How often do you get together with friends or relatives?: twice per week How often do you attend religious or worship services?: decline to answer Do you belong to any clubs or organized social groups?: no Panel score (0-1 are the most socially isolated patients): 2 What type of physical activity do you participate in: none Duration: decline to answer Frequency: decline to answer Elvia/Mu-Ism: Islam Special elvia needs: No Seatbelt use: always Drive intox or ride w/intox bulk tank driver: No Do you feel safe at home: Yes Do you feel safe in your relationship?: Yes Female Reproductive History Menstrual Menopause type: natural History History 3 Para Hx # Term Pregnancies 2 Multiple births Hx # Pregnancies Ectopic pregnancies AB induced Hx Number of Living Children AB spontaneous Exam Const General: cooperative, healthy appearing, comfortable and no acute distress Orientation: alert, awake and oriented x3 HENMT Head: normal to inspection, normocephalic and atraumatic Mouth: moist mucous membranes Throat: posterior oropharynx normal Eyes Conjunctivae: conjunctivae normal Neck Neck: normal visual inspection, full ROM, no meningeal signs, trachea midline, supple and nontender Resp Effort & Inspection: normal respiratory effort and able to speak in complete sentences Auscultation: clear to auscultation bilaterally Cardio Rate: regular rate Rhythm: regular rhythm GI Inspection: normal to inspection Palpation: soft, not firm, no guarding, not rigid and tender periumbilically (To moderate palpation); with no rebound tenderness Auscultation: normal bowel sounds Back/Spine/Pelvis Back: no CVA tenderness and No back tenderness Skin General skin exam: no rashes or lesions noted Neuro General: patient alert, patient awake, patient oriented x3, moves all extremities and no focal motor deficits Cranial Nerves: CN's II-XI intact bilaterally Cognition: normal cognition Speech: speech normal Gait: normal gait Motor: muscle tone normal throughout Sensory Exam: no sensory deficits noted Coordination: Does not sway with eyes open Extrem General: normal to inspection, full ROM, capillary refill normal, no pedal edema and no calf tenderness Psych Appearance: grossly normal Mental Status: mental status grossly normal Course Vital Signs Vital signs: Vital Signs Temperature 37.2 C 08/31/19 16:30 Pulse 70 08/31/19 16:30 Respiratory Rate 16 08/31/19 16:30 Blood Pressure 143/85 H 08/31/19 16:30 Pulse Oximetry 97 08/31/19 16:30 Temperature 36.6 C 08/31/19 19:06 Temperature Source Temporal Artery Scan 08/31/19 19:06 Pulse 77 08/31/19 19:06 Respiratory Rate 16 08/31/19 19:06 Respiratory Effort 08/31/19 16:38 Blood Pressure 134/80 08/31/19 19:06 Pulse Oximetry 98 08/31/19 19:06 Oxygen Delivery Method Room Air 08/31/19 19:06 Oxygen Flow Rate 0 08/31/19 19:06 Pain Level 0 08/31/19 19:06 Comment 08/31/19 19:06 Lab/Test Results Lab/Test Results: 08/31/19 17:40 Urine - Reflex from Ua Urine Culture - Pending Laboratory Tests Range/Units 08/31/19 08/31/19 08/31/19 17:05 17:05 17:05 WBC (4.4-10.8) k/cumm RBC (4.00-5.20) m/cumm Hgb (12.0-15.5) g/dL Hct (36.0-46.0) % MCV (80-95) fL MCH (27.0-33.0) pg MCHC (32.0-36.0) g/dL RDW (11.7-14.6) % Plt Count (130-400) x1000/uL MPV (8.0-11.0) fL Immature Gran % % Neutrophils % Lymphocytes % Monocytes % Eosinophils % Basophils % Absolute Neutrophils (1.2-6.7) k/cumm Absolute Lymphocytes (1.2-3.4) k/cumm Absolute Monocytes (0.11-0.7) k/cumm Absolute Eosinophils (0.0-0.7) k/cumm Absolute Basophils (0.0-0.2) k/cumm PT (9.3-11.0) sec 10.1 INR (0.9-1.1) 1.0 APTT (21.0-31.4) sec 24.6 Sodium (136-145) mmol/L Potassium (3.5-5.1) mmol/L Chloride (98-107) mmol/L Carbon Dioxide (21.0-32.0) mmol/L Anion Gap (3-11) mmol/L BUN (7-18) mg/dL Creatinine (0.55-1.02) mg/dL Estimated GFR/1.73 m2 (mL/min/1.73m2) Glucose (74-106) mg/dL Lactate (0.6-1.4) mmol/L 1.7 H Calcium (8.5-10.1) mg/dL Magnesium (1.8-2.4) mg/dL Total Bilirubin (0.2-1.0) mg/dL AST (15-37) U/L ALT (14-59) U/L Alkaline Phosphatase (46-116) U/L Troponin I (<0.06) ng/Ml Total Protein (6.4-8.2) g/dL Albumin (3.4-5.0) g/dL Lipase (73-393) U/L 154 Urine Color (Yellow) Urine Clarity (Clear) Urine pH (5-8) Ur Specific Foster (1.005-1.025) Urine Protein (Negative) mg/dL Urine Ketones (Negative) mg/dL Urine Blood (Negative) Urine Nitrite (Negative) Urine Bilirubin (Negative) Urine Urobilinogen (Up TO 0.2) EU/dL Ur Leukocyte Esterase (Negative) Urine RBC (0-2) HPF Urine WBC (0-5) HPF Ur Epithelial Cells (Negative) HPF Urine Crystals (Negative) HPF Urine Bacteria (Negative) HPF Urine Casts (Negative) LPF Urine Mucus (Negative) Urine Other (Negative) Ur Culture Indicated? Urine Glucose (Negative) mg/dL Range/Units 08/31/19 08/31/19 08/31/19 17:05 17:05 17:40 WBC (4.4-10.8) k/cumm 6.26 RBC (4.00-5.20) m/cumm 5.57 H Hgb (12.0-15.5) g/dL 15.7 H Hct (36.0-46.0) % 46.1 H MCV (80-95) fL 82.8 MCH (27.0-33.0) pg 28.2 MCHC (32.0-36.0) g/dL 34.1 RDW (11.7-14.6) % 14.5 Plt Count (130-400) x1000/uL 231 MPV (8.0-11.0) fL 11.1 H Immature Gran % % 0.2 Neutrophils % 65.2 Lymphocytes % 25.6 Monocytes % 8.1 Eosinophils % 0.6 Basophils % 0.3 Absolute Neutrophils (1.2-6.7) k/cumm 4.08 Absolute Lymphocytes (1.2-3.4) k/cumm 1.60 Absolute Monocytes (0.11-0.7) k/cumm 0.51 Absolute Eosinophils (0.0-0.7) k/cumm 0.04 Absolute Basophils (0.0-0.2) k/cumm 0.02 PT (9.3-11.0) sec INR (0.9-1.1) APTT (21.0-31.4) sec Sodium (136-145) mmol/L 139 Potassium (3.5-5.1) mmol/L 3.4 L Chloride (98-107) mmol/L 102 Carbon Dioxide (21.0-32.0) mmol/L 28.5 Anion Gap (3-11) mmol/L 8.5 BUN (7-18) mg/dL 15 Creatinine (0.55-1.02) mg/dL 1.01 Estimated GFR/1.73 m2 (mL/min/1.73m2) 54.84 Glucose (74-106) mg/dL 99 Lactate (0.6-1.4) mmol/L Calcium (8.5-10.1) mg/dL 10.0 Magnesium (1.8-2.4) mg/dL 2.0 Total Bilirubin (0.2-1.0) mg/dL 0.6 AST (15-37) U/L 28 ALT (14-59) U/L 43 Alkaline Phosphatase (46-116) U/L 107 Troponin I (<0.06) ng/Ml < 0.05 Total Protein (6.4-8.2) g/dL 8.1 Albumin (3.4-5.0) g/dL 4.1 Lipase (73-393) U/L Urine Color (Yellow) Yellow Urine Clarity (Clear) Clear Urine pH (5-8) 8.0 Ur Specific Foster (1.005-1.025) 1.020 Urine Protein (Negative) mg/dL Trace H Urine Ketones (Negative) mg/dL Negative Urine Blood (Negative) Negative Urine Nitrite (Negative) Negative Urine Bilirubin (Negative) Negative Urine Urobilinogen (Up TO 0.2) EU/dL 0.2 Ur Leukocyte Esterase (Negative) Small H Urine RBC (0-2) HPF Negative Urine WBC (0-5) HPF 20-50 H Ur Epithelial Cells (Negative) HPF Few Urine Crystals (Negative) HPF Negative Urine Bacteria (Negative) HPF Negative Urine Casts (Negative) LPF Negative Urine Mucus (Negative) Negative Urine Other (Negative) Few transitional Ur Culture Indicated? Yes Urine Glucose (Negative) mg/dL Negative Range/Units 08/31/19 19:05 WBC (4.4-10.8) k/cumm RBC (4.00-5.20) m/cumm Hgb (12.0-15.5) g/dL Hct (36.0-46.0) % MCV (80-95) fL MCH (27.0-33.0) pg MCHC (32.0-36.0) g/dL RDW (11.7-14.6) % Plt Count (130-400) x1000/uL MPV (8.0-11.0) fL Immature Gran % % Neutrophils % Lymphocytes % Monocytes % Eosinophils % Basophils % Absolute Neutrophils (1.2-6.7) k/cumm Absolute Lymphocytes (1.2-3.4) k/cumm Absolute Monocytes (0.11-0.7) k/cumm Absolute Eosinophils (0.0-0.7) k/cumm Absolute Basophils (0.0-0.2) k/cumm PT (9.3-11.0) sec INR (0.9-1.1) APTT (21.0-31.4) sec Sodium (136-145) mmol/L Potassium (3.5-5.1) mmol/L Chloride (98-107) mmol/L Carbon Dioxide (21.0-32.0) mmol/L Anion Gap (3-11) mmol/L BUN (7-18) mg/dL Creatinine (0.55-1.02) mg/dL Estimated GFR/1.73 m2 (mL/min/1.73m2) Glucose (74-106) mg/dL Lactate (0.6-1.4) mmol/L 0.8 Calcium (8.5-10.1) mg/dL Magnesium (1.8-2.4) mg/dL Total Bilirubin (0.2-1.0) mg/dL AST (15-37) U/L ALT (14-59) U/L Alkaline Phosphatase (46-116) U/L Troponin I (<0.06) ng/Ml Total Protein (6.4-8.2) g/dL Albumin (3.4-5.0) g/dL Lipase (73-393) U/L Urine Color (Yellow) Urine Clarity (Clear) Urine pH (5-8) Ur Specific Foster (1.005-1.025) Urine Protein (Negative) mg/dL Urine Ketones (Negative) mg/dL Urine Blood (Negative) Urine Nitrite (Negative) Urine Bilirubin (Negative) Urine Urobilinogen (Up TO 0.2) EU/dL Ur Leukocyte Esterase (Negative) Urine RBC (0-2) HPF Urine WBC (0-5) HPF Ur Epithelial Cells (Negative) HPF Urine Crystals (Negative) HPF Urine Bacteria (Negative) HPF Urine Casts (Negative) LPF Urine Mucus (Negative) Urine Other (Negative) Ur Culture Indicated? Urine Glucose (Negative) mg/dL
[2019-08-31] MEDS: Cephalexin 500 MG CAP PO (19:27)
== END 2019-08-31 19:30 | disposition home or self-care (01) ==
PROVIDERS: Emergency Provider Physician Assistant; PCP Family Medicine
DX: N39.0 Urinary tract infection, site not specified (principal); R53.1 Weakness; R10.33 Periumbilical pain; I10 Essential (primary) hypertension
CPT/HCPCS: 36415; 80053; 83690; 96360; 99285; 74177; 81003; 81015; 83605; 83735; 84484; 85025; 85610; 85730; 87086; J3490

== ENCOUNTER 2019-09-01 09:29 | Outpatient (CLI) | payer MEDICARE, OTHER, SELFPAY ==
[2019-09-02 14:41] LABS: COVID-19 RT-PCR Result NEGATIVE (Negative)
== END 2019-09-01 09:49 ==
PROVIDERS: PCP Family Medicine; Visit Provider Physician Assistant
DX: Z03.818 Encounter for observation for suspected exposure to other biological agents ruled out (principal)
CPT/HCPCS: U0003

== ENCOUNTER → 2019-09-21 09:34 | Outpatient (BNVA) | payer MEDICARE, OTHER, SELFPAY | PROVIDERS: PCP Family Medicine; Visit Provider Psychiatry & Neurology Neurology | DX: G40.209 Localization-related (focal) (partial) symptomatic epilepsy and epileptic syndromes with complex partial seizures, not intractable, without status epilepticus (principal); G43.009 Migraine without aura, not intractable, without status migrainosus; G25.0 Essential tremor; R26.89 Other abnormalities of gait and mobility | CPT/HCPCS: 99213 ==

== ENCOUNTER → 2019-10-31 09:39 | Outpatient (BNVA) | payer MEDICARE, OTHER, SELFPAY | PROVIDERS: PCP Family Medicine; Referring Provider Family Medicine; Visit Provider Internal Medicine Cardiovascular Disease | DX: I42.2 Other hypertrophic cardiomyopathy (principal); I10 Essential (primary) hypertension; R06.02 Shortness of breath | CPT/HCPCS: 99214 ==

== ENCOUNTER 2020-02-07 12:02 | Outpatient (CLI) | payer MEDICARE, OTHER, SELFPAY ==
[2020-02-07 13:00] LABS: HCT 44.8 % (36.0-46.0); HGB 14.5 g/dL (11.2-15.7); MCH 27.8 pg (27.0-33.0); MCHC 32.4 % (32.0-36.0); MPV 11.2 fL (8.0-11.0); Platelet Count 210 10^3/uL (130-400); RBC 5.21 10^6/uL (3.93-5.22); RDW 13.6 % (11.7-14.6); RDW-SD 42.6 fL; WBC 5.24 10^3/uL (4.4-10.8)
[2020-02-07 13:44] LABS: Potassium 4.1 mmol/L (3.5-5.1); TSH (W/Ref FT4) 0.27 uIU/mL (0.36-3.74)
[2020-02-07 14:24] LABS: FREE T4 1.35 ng/dL (0.76-1.46)
== END 2020-02-07 12:22 ==
PROVIDERS: PCP Family Medicine; Visit Provider Family Medicine
DX: E03.9 Hypothyroidism, unspecified (principal); I10 Essential (primary) hypertension; R42 Dizziness and giddiness
CPT/HCPCS: 36415; 85027; 84132; 84439; 84443

== ENCOUNTER → 2020-05-07 11:07 | Outpatient (BNVA) | payer MEDICARE, OTHER, SELFPAY | PROVIDERS: PCP Family Medicine; Referring Provider Family Medicine; Visit Provider Internal Medicine Cardiovascular Disease | DX: I42.2 Other hypertrophic cardiomyopathy (principal); I10 Essential (primary) hypertension | CPT/HCPCS: 99443 ==

== ENCOUNTER 2020-05-28 15:54 | Outpatient (REF) | payer MEDICARE, OTHER, SELFPAY ==
--- NOTE | 2020-05-28 15:20 | SKI_PTH ---
PATIENT: Gia Macario LOC: [facility] U#:[id number] AGE/SX: 65/F ROOM: RE05/28/[address]: Scott Lakhani DO : 1955 BED: DIS: 05/28/2020 SPEC #: [id number] RECD: 05/28/20 18:31 STATUS: PHILL REQ #: [id number] JEFRY: 05/28/20 15:[address]: Scott Lakhani DEPT: Surgical Specimen RECD BY: Gracia Campbell ENTERED: 05/28/20 18:31 SP TYPE: JAMIA TAYLOR DR: Denny Rodas MD Tissues: 1 - SKIN BIOPSY(SHAVE/PUNCH) Procedures: SKIN LEVEL 4 Comments: [id number]
== END 2020-05-28 15:55 | disposition home or self-care (01) ==
LOC: LBN 15:54
PROVIDERS: PCP Family Medicine; Visit Provider Otolaryngology Otolaryngology/Facial Plastic Surgery
DX: C44.319 Basal cell carcinoma of skin of other parts of face (principal)
CPT/HCPCS: 88305

== ENCOUNTER 2020-07-20 02:32 | Outpatient (CLI) | payer MEDICARE, OTHER, SELFPAY ==
[2020-07-20 11:33] LABS: Source Nasal/Nares
[2020-07-20 15:39] LABS: COVID-19 PCR Negative (Negative)
== END 2020-07-20 02:33 | disposition home or self-care (01) ==
LOC: LBO 02:32
PROVIDERS: PCP Family Medicine; Visit Provider Otolaryngology Otolaryngology/Facial Plastic Surgery
DX: Z20.822 Contact with and (suspected) exposure to COVID-19 (principal); Z01.818 Encounter for other preprocedural examination
CPT/HCPCS: 87635

== ENCOUNTER 2020-07-23 06:00 | Day surgery (SDC) | payer MEDICARE, OTHER, SELFPAY ==
[2020-07-23 06:38] VITALS: BP 133/84; PULSE 70; RESP 16; TEMP 36.6; O2SAT 98
[2020-07-23] MEDS: Lactated Ringers 1,000 ML 80 ML IV (07:15)
--- NOTE | 2020-07-23 07:32 | PDOC.DSDIS_ITS ---
Discharge Plan Disposition Patient Disposition: HOME Condition: Good Discharge Details Reason For Visit: OR, BCC R sabianist Attending Provider: Scott Lakhani Primary Care Provider: Denny Rodas Home Meds and New Rx's Prescriptions: No Action gabapentin 300 mg capsule 300 mg PO BID Qty: 180 RF: 3 latanoprost [Xalatan] 0.005 % drops 1 drp ophthalmic (eye) QPM RF: 0 cyclobenzaprine 10 mg tablet 10 mg PO HS PRN (Reason: muscle spasm) Qty: 20 RF: 0 lisinopril 20 mg tablet 20 mg PO BID Qty: 180 RF: 6 multivitamin [Daily Multi-Vitamin] 1 EACH tablet 1 ea PO DAILY RF: 0 ascorbic acid (vitamin C) [Vitamin C] 500 MG tablet,chewable 500 mg PO DAILY RF: 0 calcium carbonate [Tums] 300 MG tablet,chewable 300 mg PO BID RF: 0 cranberry extract 250 MG capsule 250 mg PO BID RF: 0 folic acid 0.8 MG tablet 0.8 mg PO DAILY RF: 0 cholecalciferol (vitamin D3) 1,000 UNIT capsule 25 mcg PO DAILY RF: 0 hydroxyzine HCl 25 MG tablet 25 mg PO Q4H PRN Qty: 120 RF: 3 naproxen sodium 550 MG tablet 550 mg PO BID PRN Qty: 60 RF: 3 magnesium oxide 400 mg magnesium capsule 400 mg PO DAILY RF: 0 amlodipine 5 mg tablet 5 mg PO DAILY Qty: 90 RF: 6 lamotrigine 200 mg tablet extended release 24hr 200 mg PO BID Qty: 180 RF: 3 ibuprofen 600 mg tablet 600 mg PO Q8H PRN (Reason: pain) Qty: 30 RF: 2 levothyroxine 75 mcg tablet 75 mcg PO DAILY Qty: 90 RF: 3 sumatriptan succinate [Imitrex] 25 mg tablet 25 mg PO ONCE PRN (Reason: headache) Qty: 18 RF: 11 metoprolol succinate 100 mg tablet extended release 24 hr 100 mg PO DAILY Qty: 90 RF: 4 aspirin [Aspirin Low Dose] 81 mg Tablet,Delayed Release (Dr/Ec) 81 mg PO DAILY RF: 0 meclizine 12.5 mg Tablet 12.5 mg PO PRN PRNRF: 0 ondansetron HCl [Zofran] 4 mg tablet 4 mg PO Q8H PRNQty: 10 RF: 0 Discharge Instructions Additional Instructions: see sheet Activity:: Activity as Tolerated Remove Dressings/Wound Care:: 24 hours Shower/Bathe:: 24 hours Diet:: As Tolerated
--- NOTE | 2020-07-23 07:34 | ROE_ITS ---
Operative Note Operative Note DATE OF PROCEDURE: 07/23/20 PRE-OP DIAGNOSIS: R scientologist BCC POST-OP DIAGNOSIS: same PROCEDURE: excision 2.8 cm R scientologist, frozen section reconstruction with complex closure wide undermining, patient was brought back to operative suite in stable condition placed supine on the operating table given general sedation with mask. Timeout was taken to confirm preparation procedure. 10 cc of 1% lidocaine with 1 100,000 epinephrine was injected into the right scientologist and scalp area. Patient was prepped and draped in normal fashion. 15 blade scalpel was used to incise the area, total primary lesion was 2.8 cm, colored sutures were marked for pathological orientation. Frozen section was performed, there was no positive margins. There was a very close negative margin at 12:00 recommended reexcision, we extended the excision superiorly, sent 12:00 margin final pathology, 12:00 aspect was marked with black suture. New margins inked purple. Total wound length was 4.9 cm. Wide undermining in the subcutaneous field was performed especially posteriorly. There was significant anterior scarring secondary to old scar from shunt. Triple layer closure was performed with 3-0 Monocryl, 4-0 Monocryl followed by 3-0 and 4-0 nylon. Minimal blood loss of less than 5 cc. Patient tolerated the procedure well without complications, stable to PACU. SURGEON: Scott Lakhani Refer to Anesthesia Record PATHOLOGY: other (frozen section) COMPLICATIONS: None Patient was transported to: PACU Patient's condition: stable
--- NOTE | 2020-07-23 08:05 | SKI_PTH ---
PATIENT: Gia Macario LOC: [facility] U#:[id number] AGE/SX: 65/F ROOM: RE07/23/[address]: Scott Lakhani DO : 1955 BED: DIS: 07/23/2020 SPEC #: [id number] RECD: 07/23/20 11:05 STATUS: PHILL REQ #: [id number] JEFRY: 07/23/20 08:[address]: Scott Lakhani DEPT: Surgical Specimen RECD BY: Gracia Campbell ENTERED: 07/23/20 11:09 SP TYPE: JAMIA TAYLOR DR: Denny Rodas MD Tissues: 1 - SKIN BIOPSY(SHAVE/PUNCH) 2 - SKIN BIOPSY(SHAVE/PUNCH) 3 - FROZEN SECTION EXAM 4 - FROZEN SECTION- EXTRA SPECIMEN Procedures: FROZEN SECTION EXTRA SKIN LEVEL 4 FROZEN SECTION EXAM Comments: [id number]
[2020-07-23 09:45] VITALS: BP 128/80; PULSE 72; RESP 18; TEMP 36.3; O2SAT 99
== END 2020-07-23 10:28 | disposition home or self-care (01) ==
PROVIDERS: PCP Family Medicine; Visit Provider Otolaryngology Otolaryngology/Facial Plastic Surgery
PROC: (CPT 11626; principal; 2020-07-23 07:30)
DX: C44.319 Basal cell carcinoma of skin of other parts of face (principal); I10 Essential (primary) hypertension; E03.9 Hypothyroidism, unspecified; F32.9 Major depressive disorder, single episode, unspecified
CPT/HCPCS: 11626; 12032; 88305; 88331; 88332; J0690; J2001; J2704

== ENCOUNTER → 2020-09-19 09:30 | Outpatient (BNVA) | payer MEDICARE, OTHER, SELFPAY | PROVIDERS: PCP Family Medicine; Referring Provider Family Medicine; Visit Provider Psychiatry & Neurology Neurology | DX: G40.209 Localization-related (focal) (partial) symptomatic epilepsy and epileptic syndromes with complex partial seizures, not intractable, without status epilepticus (principal); G43.009 Migraine without aura, not intractable, without status migrainosus; G25.0 Essential tremor; R26.89 Other abnormalities of gait and mobility | CPT/HCPCS: 99213 ==

== ENCOUNTER 2020-09-27 01:41 | Outpatient (CLI) | payer MEDICARE, OTHER, SELFPAY ==
[2020-09-27 12:43] LABS: HGB 14.2 g/dL (11.2-15.7); MCH 27.4 pg (27.0-33.0); MCHC 32.3 % (32.0-36.0); MCV 84.9 fL (80-95); MPV 10.9 fL (8.0-11.0); Platelet Count 213 10^3/uL (130-400); RBC 5.18 10^6/uL (3.93-5.22); RDW 13.7 % (11.7-14.6); RDW-SD 42.5 fL; WBC 5.49 10^3/uL (4.4-10.8)
[2020-09-27 12:55] LABS: ALT 27 U/L (14-59); AST 17 U/L (15-37); Albumin 3.9 g/dL (3.4-5.0); Alkaline Phosphatase 108 U/L (46-116); Anion Gap 8.7 mmol/L (3-11); BUN 18 mg/dL (7-18); Bilirubin, Total 0.4 mg/dL (0.2-1.0); CO2 30.3 mmol/L (21.0-32.0); CREATININE 0.9 mg/dL (0.55-1.02); Calcium 9.6 mg/dL (8.5-10.1); Chloride 104 mmol/L (98-107); Glucose 88 mg/dL (74-106); Sodium 143 mmol/L (136-145); Total Protein 7.1 g/dL (6.4-8.2)
[2020-09-29 12:46] LABS: Lamotrigine 8.4 mcg/mL (2.5 - 15.0)
== END 2020-09-27 01:42 | disposition home or self-care (01) ==
PROVIDERS: PCP Family Medicine; Visit Provider Psychiatry & Neurology Neurology
DX: G40.209 Localization-related (focal) (partial) symptomatic epilepsy and epileptic syndromes with complex partial seizures, not intractable, without status epilepticus (principal); R42 Dizziness and giddiness; Z79.899 Other long term (current) drug therapy; Z51.81 Encounter for therapeutic drug level monitoring
CPT/HCPCS: 36415; 80053; 80175; 85027

== ENCOUNTER → 2020-11-15 09:55 | Outpatient (BNVA) | payer MEDICARE, OTHER, SELFPAY | PROVIDERS: PCP Family Medicine; Referring Provider Family Medicine; Visit Provider Internal Medicine Cardiovascular Disease | DX: I42.2 Other hypertrophic cardiomyopathy (principal); I51.7 Cardiomegaly; I10 Essential (primary) hypertension; Z79.899 Other long term (current) drug therapy | CPT/HCPCS: 99214; 99213 ==

== ENCOUNTER → 2021-01-10 10:38 | Outpatient (BNVA) | payer MEDICARE, OTHER, SELFPAY | PROVIDERS: PCP Family Medicine; Referring Provider Family Medicine; Visit Provider Internal Medicine Cardiovascular Disease | DX: I42.2 Other hypertrophic cardiomyopathy (principal); I10 Essential (primary) hypertension; R42 Dizziness and giddiness | CPT/HCPCS: 99214; 99213 ==

== ENCOUNTER 2021-01-30 01:39 | Outpatient (CLI) | payer MEDICARE, OTHER, SELFPAY ==
[2021-01-30 11:05] LABS: HCT 44.8 % (36.0-46.0); HGB 14.3 g/dL (11.2-15.7); MCH 27.9 pg (27.0-33.0); MCHC 31.9 % (32.0-36.0); MCV 87.3 fL (80-95); MPV 11.1 fL (8.0-11.0); Platelet Count 213 10^3/uL (130-400); RBC 5.13 10^6/uL (3.93-5.22); RDW 13.8 % (11.7-14.6); RDW-SD 44.3 fL; WBC 5.03 10^3/uL (4.4-10.8)
[2021-02-01 12:41] LABS: Lamotrigine 10.5 mcg/mL (2.5 - 15.0)
== END 2021-01-30 01:40 | disposition home or self-care (01) ==
LOC: LOS 01:39
PROVIDERS: PCP Family Medicine; Visit Provider Family Medicine
DX: E03.9 Hypothyroidism, unspecified; R53.83 Other fatigue; G40.909 Epilepsy, unspecified, not intractable, without status epilepticus
CPT/HCPCS: 36415; 80175; 85027; 84443

== ENCOUNTER 2021-02-08 10:10 | Outpatient (CLI) | payer MEDICARE, OTHER, SELFPAY ==
[2021-02-08 13:40] LABS: Vitamin B12 570 pg/mL (193-986)
== END 2021-02-08 10:11 | disposition home or self-care (01) ==
LOC: LOS 10:11
PROVIDERS: PCP Family Medicine; Referring Provider Family Medicine; Visit Provider Family Medicine
DX: D64.9 Anemia, unspecified (principal)
CPT/HCPCS: 36415; 82607

== ENCOUNTER 2021-02-21 12:23 | Outpatient (CLI) | payer MEDICARE, OTHER, SELFPAY ==
--- NOTE | 2021-02-21 12:06 | DI.CT_ITS ---
Exam(s) CT ABDOMEN PELVIS WO EXAM: CT ABDOMEN PELVIS WO INDICATION: LLQ abdominal pain x 5 day worsening R10.32. COMPARISON: CT CT ABDOMEN PELVIS W from 08/31/2019 TECHNIQUE: FINDINGS: CT examination of the abdomen and pelvis was performed with oral contrast only. Note is made of a ventriculoperitoneal shunt tube. Images obtained through the lung bases are unremarkable. The liver is unremarkable in appearance. Gallbladder and bile ducts are CT normal. Pancreas appears normal. Spleen is unremarkable in appearance. Adrenals appear normal. There are tiny nonobstructing right renal calculi. Incidental left renal cysts noted. No hydronephr osis. No ureterolithiasis. Urinary bladder unremarkable. Abdominal aorta is of normal diameter and no major vascular abnormality is seen. No abdominal wall hernia. No abdominal or pelvic adenopathy. LINE TENDER structures appear intact. Appendix is normal. No evidence of diverticulitis or bowel obstruction. Note is made of small sclerotic lesions of T12 vertebral body and left sacral ala, these are unchange d from prior examination of August 2019 and are likely to represent bone islands. IMPRESSION: No evidence of acute intra-abdominal process. Tiny nonobstructing right renal calculi noted. RADIATION DOSE DELIVERED: 778.82mGy.cm Total DLP 778.82mGy.cm Total DLP 778.82mGy.cm Total DLP 778.82mGy.cm Total DLP CTDIvol RADIATION OPTIMIZATION: All CT scans at this facility use at least one of these dose optimization te chniques: automated exposure control; mA and/or kV adjustment per patient size (includes targeted exa ms where dose is matched to clinical indication); or iterative reconstruction.
--- NOTE | 2021-02-21 17:11 | DI.VRAD_ITS ---
PROCEDURE INFORMATION: Exam: CT Abdomen And Pelvis Without Contrast Exam date and time: 02/21/2021 4:51 PM Age: 65 years old Clinical indication: Other: Llq abdominal pain x 5 day worsening r10.32 TECHNIQUE: Imaging protocol: Computed tomography of the abdomen and pelvis without contrast. Other technique: GI contrast given. COMPARISON: CT ABDOMEN PELVIS W 08/31/2019 6:02 PM FINDINGS: Lungs: Minimal bibasilar atelectasis. Liver: Normal. No mass. Gallbladder and bile ducts: Possible gallbladder debris. Pancreas: Normal. No ductal dilation. Spleen: Normal. No splenomegaly. Adrenal glands: Normal. No mass. Kidneys and ureters: Left renal cyst. Stomach and bowel: Unremarkable. No obstruction. No mucosal thickening. Appendix: No evidence of appendicitis. Intraperitoneal space: Unremarkable. No free air. No significant fluid collection. Vasculature: Unremarkable. No abdominal aortic aneurysm. Lymph nodes: Unremarkable. No enlarged lymph nodes. Urinary bladder: Bladder not well distended. Reproductive: Unremarkable as visualized. Bones/joints: Mild lumbar spondylosis. Soft tissues: There is subcutaneous shunt tubing seen anteriorly extending to the left upper quadrant. IMPRESSION: No evidence for acute abnormality to account for symptoms. Dictated and Authenticated by: Nicki Keen MD. Ordering:PIERO Cerna MD
== END 2021-02-21 12:43 ==
PROVIDERS: PCP Family Medicine; Visit Provider Physician Assistant
DX: R10.31 Right lower quadrant pain (principal); N20.0 Calculus of kidney; N28.1 Cyst of kidney, acquired
CPT/HCPCS: 80053; 83690; 74176; 81003; 85025

== ENCOUNTER 2021-02-21 13:13 | Outpatient (REF) | payer MEDICARE, OTHER, SELFPAY ==
[2021-02-21 18:52] LABS: Clarity Clear (Clear); Leukocyte Esterase Trace (Negative); Nitrite Negative (Negative); Specific Gravity 1.025 (1.005-1.025)
[2021-02-21 18:53] LABS: Bilirubin Negative (Negative); Blood Negative (Negative); Glucose Negative (Negative); Ketones Trace mg/dL (Negative); Urobilinogen 0.2 EU/dL (Up TO 0.2)
[2021-02-21 19:12] LABS: Bacteria Few HPF (Negative); C & S Indicated? Yes; Casts Negative LPF (Negative); Crystals Negative HPF (Negative); Epithelial Cells Few HPF (Negative); Mucus Trace (Negative); RBC 0-2 HPF (0-2)
== END 2021-02-21 13:14 | disposition home or self-care (01) ==
LOC: LBN 13:13
PROVIDERS: PCP Family Medicine; Visit Provider Physician Assistant
DX: R39.89 Other symptoms and signs involving the genitourinary system (principal)
CPT/HCPCS: 81003; 81015; 87086

== ENCOUNTER 2021-03-13 08:45 | Emergency (ER) | payer MEDICARE, OTHER, SELFPAY ==
--- NOTE | 2021-03-13 08:30 | RT.EKG_ITS ---
APPROVED REPORT Exam: Resting ECG Reason for Exam: Dizzy, MTZ Patient Location: E HR:67 bpm ECG Measurements Heart Rate 67 AXIS IN 197 P 62 QRSd 96 QRS -49 QT 450 T 20 QTc 476 Conclusion Sinus rhythm...normal P axis, V-rate 60- 99 Left anterior fascicular block...axis(240,-40), init forces inf. Sinus. LAFB. No STEMI. I have reviewed and interpreted ECG and agree with software generated interpretation.
--- NOTE | 2021-03-13 08:40 | DI.CT_ITS ---
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 TECHNIQUE: Imaging Protocol: Axial computed tomography images with coronal and sagittal reformatted images were created and reviewed COMPARISON: CT HEAD WITHOUT CONTRAST from 01/18/2017 CT HEAD WITHOUT CONTRAST from 01/18/2017 FINDINGS: Ventricles and Extra axial spaces: The ventricular size is unchanged compared to the prior examinatio ns. There again seen calcifications associated with the ventricular system which appears stable. Hemorrhage: None. Cerebral parenchyma: Stable large area of encephalomalacia in the right temporal lobe. The ventricul ostomy tube is stable in position. No acute territorial infarct. There are areas of decreased atten uation in the white matter likely reflecting small vessel ischemic disease. Midline shift: None. Brainstem/Cerebellum: Normal. Calvarium: Stable postsurgical changes of a right parietal temporal craniotomy. Visualized Paranasal sinuses/Mastoids: Clear. Soft Tissues: Unremarkable. IMPRESSION: 1. No change in appearance of the CT brain when compared to 01/18/2017. No acute abnormality. 2. Results of this exam have been verbally communicated with provider. RADIATION DOSE DELIVERED: 758.86mGy.cm Total DLP DATA REPOSITORY: All CT scans at this facility are submitted to the National Radiology Data Registry (NRDR) Dose Index Registry (DIR) with the [employer] ([employer]). RADIATION OPTIMIZATION: All CT scans at this facility use at least one of these dose optimization te chniques: automated exposure control; mA and/or kV adjustment per patient size (includes targeted exa ms where dose is matched to clinical indication); or iterative reconstruction.
[2021-03-13 08:51] VITALS: BP 165/84; PULSE 67; RESP 16; TEMP 36.6; O2SAT 98
--- NOTE | 2021-03-13 09:00 | W.ED.GENAD ---
Discharge Plan Disposition Patient Disposition: HOME Condition: Stable Discharge Details Clinical Impression: Dizziness, Headache Primary Care Provider: Denny Rodas ED Provider: Cookie eMndiola Home Meds and New Rx's Prescriptions: New meclizine 25 mg tablet 25 mg PO TID PRN (Reason: dizziness) Qty: 10 RF: 0 Continued latanoprost [Xalatan] 0.005 % drops 1 drp ophthalmic (eye) QPM RF: 0 cyclobenzaprine 10 mg tablet 10 mg PO HS PRN (Reason: muscle spasm) Qty: 20 RF: 0 lamotrigine 200 mg tablet extended release 24hr 200 mg PO BID Qty: 180 RF: 3 gabapentin 300 mg capsule 300 mg PO QHS Qty: 90 RF: 3 magnesium oxide 400 mg magnesium capsule 500 mg PO DAILY PRN (Reason: headache) RF: 0 lisinopril 20 mg tablet 20 mg PO DAILY RF: 0 multivitamin [Daily Multi-Vitamin] 1 EACH tablet 1 ea PO DAILY RF: 0 ascorbic acid (vitamin C) [Vitamin C] 500 MG tablet,chewable 500 mg PO DAILY RF: 0 calcium carbonate [Tums] 300 MG tablet,chewable 300 mg PO BID RF: 0 cranberry extract 250 MG capsule 250 mg PO BID RF: 0 folic acid 0.8 MG tablet 0.8 mg PO DAILY RF: 0 cholecalciferol (vitamin D3) 1,000 UNIT capsule 25 mcg PO DAILY RF: 0 hydroxyzine HCl 25 MG tablet 25 mg PO Q4H PRN Qty: 120 RF: 3 naproxen sodium 550 MG tablet 550 mg PO BID PRN Qty: 60 RF: 3 ibuprofen 600 mg tablet 600 mg PO Q8H PRN (Reason: pain) Qty: 30 RF: 2 sumatriptan succinate [Imitrex] 25 mg tablet 25 mg PO ONCE PRN (Reason: headache) Qty: 18 RF: 11 metoprolol succinate 100 mg tablet extended release 24 hr 100 mg PO DAILY Qty: 90 RF: 4 levothyroxine 75 mcg tablet 75 mcg PO DAILY Qty: 90 RF: 3 aspirin [Aspirin Low Dose] 81 mg Tablet,Delayed Release (Dr/Ec) 81 mg PO DAILY RF: 0 meclizine 12.5 mg Tablet 12.5 mg PO PRN PRNRF: 0 ondansetron HCl [Zofran] 4 mg tablet 4 mg PO Q8H PRNQty: 10 RF: 0 Discharge Instructions Instructions: Dizziness (ED), General Headache (ED) Additional Instructions: The CT today shows no acute abnormality. No significant change from previous images. Please continue take your normal daily medications including the blood pressure medication. Take the meclizine up to 3 times daily as needed for dizziness. Follow up with primary care provider in 3-5 days. Return to ED sooner if any worsening headache, blurry vision, fever chills, vomiting, weakness on one side or concerns. Increase oral fluids. Please take Tylenol or Ibuprofen with food every 4-6 hours as needed for pain and swelling. Referrals: Denny Rodas MD [Primary Care Provider] - Montse Reeves MD [ [facility] STAFF PHYSICIAN] - 2 weeks Discharge Data Discharge Date/Time-TO BE ENTERED AT DEPARTURE: 03/13/21 11:43 Medical Decision Making 65-year-old female presents to the ER via EMS with chief complaint of 9 out of 10 headache and dizziness which began this morning upon awakening at 7 AM. Patient reports that when she awoke this morning she noticed dizziness and generalized weakness. She had to hold on to the wall and items to get to the bathroom. She reports that shortly thereafter the headache began. She reports describes it as the top of her head and bilateral sides, feels like somebody squeezing her head. 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 Last seizure was approximately 10 years ago. 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 She takes Lamictal and gabapentin for seizure control. She usually will drink a cup of coffee and take some Imitrex with the headache, however she did not do that this morning nor did she take any of her normal medications this morning. She is alert and oriented upon arrival no focal neuro deficits. Past medical history of seizures, E[employer] H[employer] DES[employer]ER shunt, hypertrophic cardiomyopathy, hypertension, migraines, obstructive sleep apnea, hypothyroidism, glaucoma. Work-up ordered including CBC, CMP, urinalysis, EKG, head CT. EKG was reviewed by Rosa M Caro DO ER attending, old EKG available for review. Please see her official report. No significant change noted. CT Head W/O: FINDINGS: Ventricles and Extra axial spaces: The ventricular size is unchanged compared to the prior examinations. There again seen calcifications associated with the ventricular system which appears stable. Hemorrhage: None. Cerebral parenchyma: Stable large area of encephalomalacia in the right temporal lobe. The ventriculostomy tube is stable in position. No acute territorial infarct. There are areas of decreased attenuation in the white matter likely reflecting small vessel ischemic disease. Midline shift: None. Brainstem/Cerebellum: Normal. Calvarium: Stable postsurgical changes of a right parietal temporal craniotomy. Visualized Paranasal sinuses/Mastoids: Clear. Soft Tissues: Unremarkable. IMPRESSION: 1. No change in appearance of the CT brain when compared to 01/18/2017. No acute abnormality. 2. Results of this exam have been verbally communicated with provider. 30 mg Toradol, 4 mg Zofran, 6 mg of sumatriptan subcu, 25 mg meclizine p.o. ordered. CBC, CMP, urinalysis all largely within normal limits. 1023: Patient reevaluation, patient reports that her headache is slightly improved. Patient is going to get up to the bedside commode to obtain a urine sample. I will reevaluate her afterwards to see how her dizziness is doing. I did discuss the CT results with her she verbalizes understanding. Patient reports resolution of her headache however the dizziness is still persisting. Do feel it is safe for patient be discharged home at this time due to negative CT and she does have a past medical history of vertigo and dizziness. Labs show no evidence for electrolyte abnormality or dehydration. No urinary tract infection. Discussed home care and follow-up care and strict return instructions, verbalized understanding. HPI General Mode of arrival: EMS. Date/Time Provider Initiated Documentation: 03/13/21 08:47. Limitations to Documentation: no limitations. Information obtained by: patient, EMS, RN notes reviewed and old records reviewed. HPI Narrative: 65-year-old female presents to the ER via EMS with chief complaint of 9 out of 10 headache and dizziness which began this morning upon awakening at 7 AM. Patient reports that when she awoke this morning she noticed dizziness and generalized weakness. She had to hold on to the wall and items to get to the bathroom. She reports that shortly thereafter the headache began. She reports describes it as the top of her head and bilateral sides, feels like somebody squeezing her head. 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 Last seizure was approximately 10 years ago. 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 She takes Lamictal and gabapentin for seizure control. She usually will drink a cup of coffee and take some Imitrex with the headache, however she did not do that this morning nor did she take any of her normal medications this morning. She is alert and oriented upon arrival no focal neuro deficits. Past medical history of seizures, [employer]INEER shunt, hypertrophic cardiomyopathy, hypertension, migraines, obstructive sleep apnea, hypothyroidism, glaucoma. Related Data Home Medications Medication Instructions Recorded Confirmed ascorbic acid (vitamin C) [Vitamin 500 mg PO DAILY tab.chew 07/24/14 03/13/21 C] multivitamin [Daily Multi-Vitamin] 1 ea PO DAILY 07/24/14 03/13/21 calcium carbonate [Tums] 300 mg PO BID tab.chew 08/28/14 03/13/21 cranberry extract 250 mg PO BID 01/21/17 03/13/21 folic acid 0.8 mg PO DAILY tab-cap 01/29/17 03/13/21 cholecalciferol (vitamin D3) 25 mcg PO DAILY 02/17/17 03/13/21 hydroxyzine HCl 25 mg PO Q4H PRN #120 tab-cap 09/21/17 03/13/21 naproxen sodium 550 mg PO BID PRN #60 tab-cap 10/14/17 03/13/21 latanoprost 0.005 % eye drops 1 drp OPHTHALMIC (EYE) QPM 12/22/18 03/13/21 aspirin [Aspirin Low Dose] 81 mg PO DAILY 01/16/19 03/13/21 cyclobenzaprine 10 mg tablet 10 mg PO HS PRN #20 tab 07/29/19 03/13/21 ondansetron HCl [Zofran] 4 mg PO Q8H PRN #10 tab 08/31/19 03/13/21 ibuprofen 600 mg tablet 600 mg PO Q8H PRN #30 tab 01/20/20 03/13/21 sumatriptan succinate 25 mg tablet 25 mg PO ONCE PRN #18 tab-cap 04/03/20 03/13/21 metoprolol succinate 100 mg 100 mg PO DAILY #90 tab 07/19/20 03/13/21 tablet,extended release 24 hr meclizine 12.5 mg PO PRN PRN 07/20/20 03/13/21 gabapentin 300 mg capsule 300 mg PO QHS #90 cap 09/19/20 03/13/21 lamotrigine 200 mg tablet,extended 200 mg PO BID #180 tab 09/19/20 03/13/21 release 24 hr magnesium oxide 500 mg PO DAILY PRN cap 11/15/20 03/13/21 lisinopril 20 mg tablet 20 mg PO DAILY tab 01/25/21 03/13/21 levothyroxine 75 mcg tablet 75 mcg PO DAILY #90 tab-cap 02/11/21 03/13/21 meclizine 25 mg PO TID PRN #10 tab 03/13/21 Previous Rx's Medication Instructions Recorded hydroxyzine HCl 25 mg PO Q4H PRN #120 tab-cap 09/21/17 naproxen sodium 550 mg PO BID PRN #60 tab-cap 10/14/17 cyclobenzaprine 10 mg tablet 10 mg PO HS PRN #20 tab 07/29/19 ondansetron HCl [Zofran] 4 mg PO Q8H PRN #10 tab 08/31/19 ibuprofen 600 mg tablet 600 mg PO Q8H PRN #30 tab 01/20/20 sumatriptan succinate 25 mg tablet 25 mg PO ONCE PRN #18 tab-cap 04/03/20 metoprolol succinate 100 mg 100 mg PO DAILY #90 tab 07/19/20 tablet,extended release 24 hr gabapentin 300 mg capsule 300 mg PO QHS #90 cap 09/19/20 lamotrigine 200 mg tablet,extended 200 mg PO BID #180 tab 09/19/20 release 24 hr levothyroxine 75 mcg tablet 75 mcg PO DAILY #90 tab-cap 02/11/21 meclizine 25 mg PO TID PRN #10 tab 03/13/21 Allergies Allergy/AdvReac Type Severity Reaction Status Date / Time divalproex sodium AdvReac Verified 03/13/21 08:57 [From [facility]] General Stated Complaint: Headache DOMINGA: 3 Review of Systems Constitutional Constitutional: Reports as per HPI, Denies body ache(s), Denies chills, Denies fever(s), Reports headache(s) and Reports weakness Eyes Eyes: Denies blurry vision, Denies diplopia, Denies loss of vision and Reports photophobia ENT Ears, Nose, Mouth, and Throat: Denies abnormal hearing, Reports dizziness, Denies facial pain, Reports headache(s), Denies nasal trauma, Denies neck pain, Reports disequilibrium and Denies tinnitus Cardiovascular Cardiovascular: Denies chest pain, Denies chest pain at rest and Denies dyspnea Respiratory Respiratory: Denies cough and Denies dyspnea Gastrointestinal Gastrointestinal: Denies diarrhea, Denies nausea and Denies vomiting Genitourinary Genitourinary: Denies dysuria Musculoskeletal Musculoskeletal: Denies neck pain, Denies numbness and Denies tingling Neurologic Neurologic: Denies abnormal hearing, Denies abnormal movements, Denies abnormal speech, Reports dizziness, Reports headache(s), Denies loss of vision, Denies memory loss, Denies numbness, Denies seizure-like activity, Denies tingling, Denies paresthesias, Reports disequilibrium and Reports weakness Psychiatric Psychiatric: Denies memory loss [facility] Active Problem List Lightheadedness (Acute) Basal cell carcinoma (BCC) of skin of face (Acute) Skin lesion of cheek (Acute) Sensorineural hearing loss of both ears (Acute) Conductive hearing loss, external ear (Acute) Impacted cerumen (Acute) [place] (Acute) Tinnitus (Acute) Imbalance (Acute) Right flank pain (Acute) Hypertrophic cardiomyopathy (Acute) Internal hemorrhoids (Acute) Colorectal polyps (Acute) Vertigo (Acute) Seizure disorder (Acute) Tubular adenoma (Acute 09/12/13) Nonintractable epilepsy due to external causes (Acute 12/20/16) Essential tremor (Acute 01/01/16) Cyst of breast, right, benign solitary (Acute 01/24/15) Colitis (Acute 01/16/17) Inflamed seborrheic keratosis (Acute) LVH (left ventricular hypertrophy) (Acute) Hypertension (Chronic) Osteopenia (Acute) Hypothyroidism (Chronic) SHERLY (obstructive sleep apnea) (Chronic) Basal cell carcinoma of face (Acute) Complex partial epilepsy with generalization (Acute) Glaucoma (Acute 03/14/15) Kidney stone (Acute 08/24/14) Migraine without aura and without status migrainosus, not intractable (Acute 03/23/17) Medical History Brain abscess 1972; FRONTAL LOBE with shunt Displaced transverse fracture of right patella, subsequent encounter for closed fracture with malunion (08/01/16) Dyspareunia clitoral pain. Compounded vaginal E2 cream thru [facility] not effective. Elbow fracture, left Pancreatitis (01/16/17) Valproic acid toxicity 2017. Hospitalized at [facility]. Significant recovery. Surgical History section (~1989) Dilation and curettage LAMINECTOMY LUMBAR Ligation of fallopian tube ORIF R Patella 02/13/16 S/P colonoscopy (~04/27/19) 2013- Tubular adenoma Tonsillectomy VENTRICULAR SHUNT after I+D of brain abcess. No issues. Family History Mother , age 94 CHF (congestive heart failure) A-fib Hypertension Father , age 78 Essential hypertension Multiple myeloma Brother Essential hypertension Heart disease MVR/Afib COVID Maternal Grandfather No problems noted. Paternal Grandfather Stroke Hypertension Maternal Grandmother No problems noted. Paternal Grandmother Skin cancer Son No problems noted. Daughter No problems noted. 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 Pets and animals: Yes Pets and animals: dog(s) Sexually active: No Do you think of yourself as: straight/heterosexual Current gender identity: female What is your relationship status?: How often do you talk on the phone with friends or family?: three or more times per week How often do you get together with friends or relatives?: three or more times per week How often do you attend jewish or druze services?: decline to answer Do you belong to any clubs or organized social groups?: no Panel score (0-1 are the most socially isolated patients): 2 What type of physical activity do you participate in: walking Duration: > 90 minutes/day Frequency: daily Elvia/Voodoo: Rastafarian Special elvia needs: No Seatbelt use: always Drive intox or ride w/intox stock driver: No Do you feel safe at home: Yes Do you feel safe in your relationship?: Yes Female Reproductive History Menstrual Menopause type: natural History History 3 Para Hx # Term Pregnancies 2 Multiple births Hx # Pregnancies Ectopic pregnancies AB induced Hx Number of Living Children AB spontaneous Exam Narrative Exam Narrative: Constitutional: Alert and oriented x3. Appears stated age. Normal body habitus. Head: Normocephalic, no trauma. Eyes: Pupils PERRL, Red reflex noted, EOM's intact. Eyelids symmetrical without lesions, discharge, or swelling. ENT: Bilateral TM's WNL, External ear normal to inspection, no mastoid TTP, swelling, or erythema, Nasal turbinates WNL, no nasal discharge. Normal dentition, Posterior pharynx WNL, no exudate. Chest: RRR, Normal S1, S2, distal pulses intact. Resp: Lungs clear to auscultation bilaterally, no wheezes, rales, or rhonchi. Abdomen: Soft, non-distended, Normoactive bowel sounds all 4 quads. Musculoskeletal: Normal gait, 5/5 strength to all four extremities. Skin: No suspicious rashes or lesions. Capillary refill less than 2 sec. Neurologic: Cranial nerves II-XII intact. Alert and oriented x 3. Motor: No deficits noted. Sensory: Intact bilaterally all 4 extremities. Reflexes: DTR's intact bilaterally.. Hematologic/Lymphatic: No ecchymosis, no lymphadenopathy. Course Vital Signs Vital signs: Vital Signs Temperature 36.6 C 03/13/21 08:51 Pulse 67 03/13/21 08:51 Respiratory Rate 16 03/13/21 08:51 Blood Pressure 165/84 H 03/13/21 08:51 Pulse Oximetry 98 03/13/21 08:51 Temperature 36.6 C 03/13/21 08:51 Temperature Source Skin 03/13/21 08:51 Pulse 67 03/13/21 08:51 Respiratory Rate 16 03/13/21 08:51 Respiratory Effort Non-Labored 03/13/21 08:51 Blood Pressure 165/84 H 03/13/21 08:51 Blood Pressure Position Supine 03/13/21 08:51 Pulse Oximetry 98 03/13/21 08:51 Pain Level 8 03/13/21 08:51
[2021-03-13 09:25] LABS: Absolute Basophil Count 0.04 10^3/uL (0.0-0.2); Absolute Lymphocyte Count 1.16 10^3/uL (1.2-3.4); Basophils % 0.8; HCT 45.6 % (36.0-46.0); HGB 14.7 g/dL (11.2-15.7); Lymphocytes % 22.7; MCH 27.4 pg (27.0-33.0); MCHC 32.2 % (32.0-36.0); MCV 85.1 fL (80-95); MPV 10.8 fL (8.0-11.0); Monocytes % 7.8; Neutrophils % 66.7; Nucleated RBC 0 %; Platelet Count 188 10^3/uL (130-400); RBC 5.36 10^6/uL (3.93-5.22); RDW 13.5 % (11.7-14.6); RDW-SD 41.9 fL
[2021-03-13 09:52] LABS: ALT 24 U/L (14-59); AST 21 U/L (15-37); Albumin 3.8 g/dL (3.4-5.0); Alkaline Phosphatase 104 U/L (46-116); Anion Gap 8.7 mmol/L (3-11); BUN 21 mg/dL (7-18); Bilirubin, Total 0.6 mg/dL (0.2-1.0); CO2 28.3 mmol/L (21.0-32.0); Calcium 9.3 mg/dL (8.5-10.1); Chloride 104 mmol/L (98-107); Glucose 106 mg/dL (74-106); Potassium 3.8 mmol/L (3.5-5.1); Sodium 141 mmol/L (136-145); Total Protein 7.3 g/dL (6.4-8.2); Troponin I < 0.05 ng/mL (<0.06)
[2021-03-13] MEDS: SUMAtriptan 6 MG/0.5 ML VIAL SC (09:57)
[2021-03-13] MEDS: Ketorolac 30 MG/ML VIAL IVP (09:58)
[2021-03-13] MEDS: Ondansetron 4 MG/2 ML VIAL IVP (09:58)
[2021-03-13] MEDS: Normal Saline Flush 10 ML SYR IVP (09:58)
[2021-03-13] MEDS: Normal Saline 1,000 ML 150 ML IV (09:59)
[2021-03-13] MEDS: Meclizine 25 MG TAB PO (10:10)
[2021-03-13 10:40] LABS: Bilirubin Negative (Negative); Blood Negative (Negative); Clarity Clear (Clear); Glucose Negative (Negative); Ketones Negative (Negative); Leukocyte Esterase Negative (Negative); Nitrite Negative (Negative); Urobilinogen 0.2 EU/dL (Up TO 0.2); pH 8.5 (5-8)
[2021-03-13 10:54] VITALS: BP 155/71; PULSE 68; RESP 15; TEMP 36.7; O2SAT 99
[2021-03-13 11:19] VITALS: BP 155/71; PULSE 68; RESP 15; TEMP 36.7; O2SAT 99
== END 2021-03-13 11:43 | disposition home or self-care (01) ==
PROVIDERS: Emergency Provider Registered Nurse Emergency; PCP Family Medicine
DX: R42 Dizziness and giddiness (principal); R51.9 Headache, unspecified
CPT/HCPCS: 36415; 80053; 93005; 96361; 96372; 96374; 96375; 99284; 70450; 81003; 84484; 85025; 93010; J1885; J2405

== ENCOUNTER → 2021-03-20 09:38 | Outpatient (BNVA) | payer MEDICARE, OTHER, SELFPAY | PROVIDERS: PCP Family Medicine; Referring Provider Family Medicine; Visit Provider Psychiatry & Neurology Neurology | DX: G40.209 Localization-related (focal) (partial) symptomatic epilepsy and epileptic syndromes with complex partial seizures, not intractable, without status epilepticus (principal); G43.009 Migraine without aura, not intractable, without status migrainosus; G25.0 Essential tremor; R26.89 Other abnormalities of gait and mobility | CPT/HCPCS: 99213 ==

== ENCOUNTER 2021-04-23 19:04 | Outpatient (CLI) | payer MEDICARE, OTHER, SELFPAY ==
--- NOTE | 2021-04-23 10:15 | DI.RAD_ITS ---
Exam(s) XR CERVICAL SP COMP W FLEX/EXT EXAM: XR CERVICAL SP COMP W FLEX/EXT CLINICAL HISTORY: neck pain; no trauma,has corporate vp advertising & online shunt, TECHNIQUE: COMPARISON: CR CERVICAL SP. LIMITED (TRAUMA) from 03/28/2014 FINDINGS: Seven views were obtained including flexion and extension lateral views. Prevertebral soft tissues a ppear intact. There is disc space narrowing at C4-5, C5-6, and C6-7, and there are prominent hypertr ophic endplate and facet changes at these levels. Flexion and extension views are unremarkable. Bib ral foramina appear fairly well maintained as visualized except for question mild narrowing left neur al foramen at C6 7 on the left and right neural foramina at C5-6 and C6-7 on the right. No erosive o r destructive lesion seen. Note is made of a ventriculoperitoneal shunt traversing the cervical region. IMPRESSION: Moderate degenerative changes of the lower cervical spine. RADIATION DOSE DELIVERED: Total DLP
== END 2021-04-23 19:24 ==
PROVIDERS: PCP Family Medicine; Visit Provider Family Medicine
DX: M54.2 Cervicalgia (principal); M47.892 Other spondylosis, cervical region
CPT/HCPCS: 72052

== ENCOUNTER 2021-05-13 12:48 | Outpatient (CLI) | payer MEDICARE, OTHER, SELFPAY ==
--- NOTE | 2021-05-13 12:30 | DI.US_ITS ---
Exam(s) US LOWER EXTREMITY VENOUS RT EXAM: US LOWER EXTREMITY VENOUS RT CLINICAL HISTORY: R/O DVT to right upper thigh M79.604 PAIN RT LEG. TECHNIQUE: Lower extremity venous ultrasound performed using grayscale, color-flow, and spectral Do ppler analysis. COMPARISON: No exams were available for comparison FINDINGS: The common femoral, femoral and popliteal veins demonstrate normal compressibility, augmentation, and color Doppler. The posterior tibial veins are patent. No saphenous vein thrombosis or other superfi cial venous thrombosis is seen. No hematoma or Bowen's cyst is seen. There is minimal edema in the anterior thigh region in the area of the patient's pain. There is no drainable collection. There is no evidence of a mass. IMPRESSION: Minimal anterior thigh edema. No evidence of DVT. DATA REPOSITORY:
== END 2021-05-13 13:08 ==
PROVIDERS: PCP Family Medicine; Visit Provider Nurse Practitioner Family
DX: M79.651 Pain in right thigh (principal); M79.604 Pain in right leg; R60.0 Localized edema
CPT/HCPCS: 93971

== ENCOUNTER → 2021-05-16 10:50 | Outpatient (BNVA) | payer MEDICARE, OTHER, SELFPAY | PROVIDERS: PCP Family Medicine; Visit Provider Internal Medicine Cardiovascular Disease | DX: I42.2 Other hypertrophic cardiomyopathy (principal); I10 Essential (primary) hypertension | CPT/HCPCS: 99213 ==

== ENCOUNTER 2021-05-30 13:25 | Outpatient (CLI) | payer MEDICARE, OTHER, SELFPAY ==
--- NOTE | 2021-05-30 10:40 | DI.RAD_ITS ---
Exam(s) XR KNEE RT 3V AP,LAT,HOMAR EXAM: XR KNEE RT 3V AP,LAT,HOMAR CLINICAL HISTORY: eval R thigh/knee pain. TECHNIQUE: 2D digital imaging was performed of the right knee. Three views obtained. AP, lateral an d merchant's views were obtained. COMPARISON: CR RIGHT KNEE 3 VIEWS from 07/04/2016 FINDINGS: BONES: No acute fracture is present. No bony destructive lesion is seen. Mild spurring of the posteri or patella. JOINTS: The knee is normally aligned. No joint effusion is seen. SOFT TISSUE: Normal. IMPRESSION: Mild degenerative changes at the patellofemoral joint. DATA REPOSITORY: RADIATION DOSE DELIVERED:
== END 2021-05-30 13:26 | disposition home or self-care (01) ==
LOC: DIORS 13:26
PROVIDERS: PCP Family Medicine; Referring Provider Family Medicine; Visit Provider Student in an Organized Health Care Education/Training Program
DX: M79.651 Pain in right thigh (principal); M25.561 Pain in right knee; M17.11 Unilateral primary osteoarthritis, right knee; S76.111A Strain of right quadriceps muscle, fascia and tendon, initial encounter; X58.XXXA Exposure to other specified factors, initial encounter
CPT/HCPCS: 73562; 99214

== ENCOUNTER → 2021-09-24 08:37 | Outpatient (BNVA) | payer MEDICARE, OTHER, SELFPAY | PROVIDERS: PCP Family Medicine; Referring Provider Family Medicine; Visit Provider Psychiatry & Neurology Neurology | DX: G40.209 Localization-related (focal) (partial) symptomatic epilepsy and epileptic syndromes with complex partial seizures, not intractable, without status epilepticus (principal); G43.009 Migraine without aura, not intractable, without status migrainosus; G25.0 Essential tremor; R26.89 Other abnormalities of gait and mobility | CPT/HCPCS: 99214 ==

== ENCOUNTER → 2021-11-14 10:19 | Outpatient (BNVA) | payer MEDICARE, OTHER, SELFPAY | PROVIDERS: PCP Family Medicine; Visit Provider Internal Medicine Cardiovascular Disease | DX: I42.2 Other hypertrophic cardiomyopathy (principal); I10 Essential (primary) hypertension | CPT/HCPCS: 99213 ==

== ENCOUNTER 2021-12-14 00:43 | Emergency (ER) | payer MEDICARE, OTHER, SELFPAY ==
--- NOTE | 2021-12-14 00:45 | RT.EKG_ITS ---
APPROVED REPORT Exam: Resting ECG Reason for Exam: dizzy Patient Location: E HR:61 bpm ECG Measurements Heart Rate 61 AXIS GA 201 P 63 QRSd 101 QRS -49 QT 442 T 27 QTc 445 Conclusion Sinus rhythm...normal P axis, V-rate 60- 99 Left anterior fascicular block...axis(240,-40), init forces inf Nonspecific T abnormalities, anterior leads...T <-0.10mV, V2-V4 Physician: Rate 61, sinus rhythm, no STEMI, LAFB, inverted T waves in V1, V3, lead III, and aVR. The se findings are present from prior EKG from 03/13/2021 aside for the inverted T wave in V2 and V3, I s uspect lead reversal.
--- NOTE | 2021-12-14 00:45 | DI.CT_ITS ---
Exam(s) CT BRAIN NECK CTA EXAM: CT BRAIN NECK CTA CLINICAL HISTORY: dizzy, light headed, confused, r/o stroke. TECHNIQUE: Imaging Protocol: Axial CT angiography was performed with multi-slice acquisition and mu lti-planar and 3D reconstructions. CONTRAST MATERIAL: Intravenous: Omnipaque 350 Contrast volume:85 cc COMPARISON: CT HEAD WITHOUT CONTRAST from 01/18/[address] ABDOMEN PELVIS WO from 02/21/2021 FINDINGS: CT Head W/O and W contrast: No acute hemorrhage, acute infarct or mass is seen. There is no abnormal enhancement. There is agai n noted to be a large area encephalomalacia in the right temporal and frontal region. Craniotomy def ect is again noted. There is been no change in the ventriculoperitoneal shunt. There is no abnormal ventricular dilatation. Calcifications are again present within the ventricular system. CTA Brain W: Internal Carotid Arteries: Petrous: Normal. Cavernous: Normal. Cerebral: Normal. Middle Cerebral Arteries: Right: No aneurysm, occlusion or significant stenosis. Left: No aneurysm, occlusion or significant stenosis. Anterior Cerebral Arteries: Right: Hypoplastic right A1 segment with normal flow distally.. No aneurysm, occlusion Left: No aneurysm, occlusion or significant stenosis. Posterior cerebral Arteries: Right: No aneurysm, occlusion or significant stenosis. Left: No aneurysm, occlusion or significant stenosis. Vertebral Arteries: Right: No aneurysm, occlusion or significant stenosis. Left: No aneurysm, occlusion or significant stenosis. Basilar Artery: No aneurysm, occlusion or significant stenosis. CTA Neck W: Common Carotid: Right: No aneurysm, occlusion or significant stenosis. Left: No aneurysm, occlusion or significant stenosis. External Carotid: Right: No aneurysm, occlusion or significant stenosis. Left: No aneurysm, occlusion or significant stenosis. Internal Carotid: Right: No aneurysm, occlusion or significant stenosis. Left: No aneurysm, occlusion or significant stenosis. Vertebral Artery: Right: No aneurysm, occlusion or significant stenosis. Left: No aneurysm, occlusion or significant stenosis. Lung Apices: Normal. Bones: D degenerative changes mid to the lower cervical spine. Soft Tissues: Normal. IMPRESSION: 1. 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 2. Stable appearance of large area of right temporo frontal encephalomalacia and ventricular calcific ations. Stable appearance of ventricular peritoneal shunt. 3. Normal CTA examination of the neck. RADIATION DOSE DELIVERED: 1,903.2mGy.cm Total DLP DATA REPOSITORY: All CT scans at this facility are submitted to the National Radiology Data Registry (NRDR) Dose Index Registry (DIR) with the [employer] (ACR). RADIATION OPTIMIZATION: All CT scans at this facility use at least one of these dose optimization te chniques: automated exposure control; mA and/or kV adjustment per patient size (includes targeted exa ms where dose is matched to clinical indication); or iterative reconstruction.
[2021-12-14 00:50] VITALS: BP 171/100; PULSE 63; RESP 18; TEMP 36.7; O2SAT 97
--- NOTE | 2021-12-14 01:00 | ED.GENADUL_ITS ---
Discharge Plan Disposition Patient Disposition: HOME Condition: Good Discharge Details Clinical Impression: Urinary tract infection Primary Care Provider: Denny Rodas ED Provider: Ezekiel Miguel Home Meds and New Rx's Prescriptions: New cephalexin 500 mg capsule 500 mg PO QID 7 Days Qty: 28 0RF Continued latanoprost [Xalatan] 0.005 % drops 1 drp ophthalmic (eye) QPM Label Comments: 12/22/18 rt eye only. si magnesium oxide 400 mg magnesium capsule 500 mg PO DAILY PRN (Reason: headache) Label Comments: lisinopril 20 mg tablet 20 mg PO HS Label Comments: dose reduced 01/25/21 gabapentin 300 mg capsule 300 mg PO QHS Qty: 90 3RF lamotrigine 200 mg tablet extended release 24hr 200 mg PO BID Qty: 180 3RF ibuprofen 600 mg tablet 600 mg PO Q8H PRN (Reason: pain) Qty: 30 2RF cyclobenzaprine 10 mg tablet 10 mg PO HS PRN (Reason: muscle spasm) Qty: 20 0RF multivitamin [Daily Multi-Vitamin] 1 EACH tablet 1 ea PO DAILY ascorbic acid (vitamin C) [Vitamin C] 500 MG tablet,chewable 500 mg PO DAILY calcium carbonate [Tums] 300 MG tablet,chewable 300 mg PO BID cranberry extract 250 MG capsule 250 mg PO BID folic acid 0.8 MG tablet 0.8 mg PO DAILY cholecalciferol (vitamin D3) 1,000 UNIT capsule 25 mcg PO DAILY hydroxyzine HCl 25 MG tablet 25 mg PO Q4H PRN Qty: 120 3RF Rx Instructions: prn dizziness or headache naproxen sodium 550 MG tablet 550 mg PO BID PRN Qty: 60 3RF levothyroxine 75 mcg tablet 75 mcg PO DAILY Qty: 90 3RF metoprolol succinate 100 mg tablet extended release 24 hr 100 mg PO DAILY Qty: 90 3RF sumatriptan succinate 50 mg tablet See Rx Instructions PO .COMPLEX Qty: 12 11RF Rx Instructions: take 1 tab at onset of headache; if no relief may repeat 1 tab after at least 2 hrs; max = 4 tabs/24 hr PO aspirin [David Low Dose Aspirin] 81 mg Tablet,Delayed Release (Dr/Ec) 81 mg PO DAILY ondansetron HCl [Zofran] 4 mg tablet 4 mg PO Q8H PRNQty: 10 0RF Discharge Instructions Instructions: Urinary Tract Infection in Women (ED) Additional Instructions: At this time you have evidence of urinary tract infection. The prescription for Keflex has been sent to your pharmacy on file. Please take this as directed. Please drink plenty of fluids and take cranberry concentrate. If you notice any worsening of your symptoms, or any new symptoms such as vomiting, diarrhea, fever, chills, shortness of breath, chest pain, numbness, weakness, or fainting , please return immediately to the emergency department for reevaluation. Please follow up with your primary care provider as soon as possible for reassessment and reevaluation. As always, it was a pleasure participating in your medical care today. Referrals: Denny Rodas MD [Primary Care Provider] - Medical Decision Making This is a 66-year-old female with a past medical history of hypertrophic cardiomyopathy, distant history of seizures, hypertension, high cholesterol, hypothyroidism, migraines, obstructive sleep apnea, who presents today for evaluation of a generalized feeling of being off. Patient states that starting this evening and to a much lesser degree earlier this morning, she has felt slightly weak and dizzy throughout the day. No focal component. She feels lightheaded whenever she stands up. She noticed that her blood pressure was elevated this evening and it concerned her. EMS was called, and her blood pressure decreased at the time they arrived and she decided to come by POV. She denies any headache, neck pain, or seizure. She has been taking her medication as directed. She denies any numbness or tingling. She repeatedly states that something just feels off. She denies any vomiting or diarrhea. She denies any dietary changes. No room spinning sensation. No tinnitus. No other complaints at this time. Physical exam demonstrates no focal neurologic deficits, hints exam is unremarkable. No nystagmus, and a negative test of skew. Differential is broad but includes acute versus subacute stroke, dysrhythmia, dehydration, electrolyte abnormality and less likely cardiac etiology, we will rehydrate, get a CT/CT of the brain, evaluate for these etiologies, monitor closely and reassess. 3:35 AM Patient's laboratory work-up is returned notably unremarkable. No white count or bandemia or left shift. Electrolytes stable, renal function good, she does have an elevated BUN suggestive of mild dehydration. Troponin normal, thyroid function excellent, EKG unchanged. His CT/CTA of the brain and head normal. She has been rehydrated with a liter of fluid. Urinalysis does show leuk esterase and 20-50 WBCs which is notably suggestive of a urinary tract infection. Symptoms appear inconsistent with lamotrigine overdose. Lamotrigine levels have been sent as send out test well. Patient is feeling much better on reassessment. She shows no focal neurologic deficits or clinical evidence of cerebellar stroke. Suspect UTI as a cause of her symptoms compounded by mild dehydration. We will give 2 g of ceftriaxone here and a Keflex prescription for home. Discussed red flags which to return. I have extensively reviewed the treatment plan and discharge instructions with the patient and their family. I have addressed all patient concerns at this time. The patient and family was made aware of what symptoms to monitor for that would warrant a return to the emergency department. Discussed the plan with the patient and family, they demonstrate verbal understanding and agreement with our assessment and plan at this time. The documentation in this chart was dictated using [employer] dictation software. Please excuse any dictation errors. EKG at 1: 00 Rate 61, sinus rhythm, no STEMI, LAFB, inverted T waves in V1, V3, lead III, and aVR. These findings are present from prior EKG from 03/13/2021 aside for the inverted T wave in V2 and V3, I suspect lead reversal. Right internal carotid artery: Intracranial segment is patent with no significant stenosis or occlusion. No aneurysm. Right middle cerebral artery: No occlusion or significant stenosis to the level of the post bifurcation right M1 segments. No aneurysm. 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 No aneurysm. Left internal carotid artery: Intracranial segment is patent with no significant stenosis. No aneurysm. Left middle cerebral artery: No occlusion or significant stenosis. No aneurysm. Left anterior cerebral artery: No occlusion or significant stenosis. No aneurysm. POSTERIOR CIRCULATION: Right vertebral artery: No occlusion or significant stenosis. No aneurysm. Left vertebral artery: No occlusion or significant stenosis. No aneurysm. Basilar artery: No occlusion or significant stenosis. No aneurysm. Right posterior cerebral artery: No occlusion or significant stenosis. No aneurysm. Left posterior cerebral artery: No occlusion or significant stenosis. No aneurysm. HEAD: Brain: Chronic postsurgical changes suspected involving the anterior right temporal lobe region with chronic encephalomalacia also seen involving the deep and subcortical white matter in the anterior right frontal lobe. No acute cerebral infarct is detected. Cerebral ventricles: Stable in configuration with ventriculostomy catheter again seen entering the skull via a right parietal ramiro hole and crossing the midline with its tip in the region of the frontal horn of the left lateral ventricle. Intraventricular calcifications are also again evident. Bones/joints: Right-sided craniotomy defect again. Paranasal sinuses: Visualized sinuses are normal. No fluid levels. Mastoid air cells: Visualized mastoids are normal. No mastoid effusion. Soft tissues: Unremarkable. IMPRESSION: 1. 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 2. No large vessel stenosis or occlusion detected involving the remaining major branches of the anterior or posterior intracranial circulation. 3. Chronic postsurgical changes and areas of encephalomalacia seen involving the right cerebral hemisphere with no acute infarct detected. FINDINGS: Right common carotid artery: No stenosis. No dissection or occlusion. Right internal carotid artery: No stenosis of the extracranial segment. No dissection or occlusion. Right external carotid artery: No occlusion or stenosis of the origin. Left common carotid artery: No stenosis. No dissection or occlusion. Left internal carotid artery: No stenosis of the extracranial segment. No dissection or occlusion. Left external carotid artery: No occlusion or stenosis of the origin. Right vertebral artery: No stenosis. No dissection or occlusion. Left vertebral artery: No stenosis. No dissection or occlusion. Soft tissues: Normal. No significant soft tissue swelling. Bones/joints: No acute fracture. IMPRESSION: No evidence of 50% or greater stenosis involving the cervical segments of the right or left internal carotid arteries by NASCET criteria. REFERENCES: NASCET CRITERIA. The degree of stenosis in the cervical segment of the internal carotid artery is based on NASCET criteria. Normal is no stenosis. Mild is less than 50% stenosis. Moderate is 50- 69% stenosis. Severe is 70% to 99% stenosis. Total occlusion is no detectable patent lumen. Thank you for allowing us to participate in the care of your patient. Dictated and Authenticated by: Mikal Ruiz MD 12/14/2021 2:48 AM Eastern Time ([place] & [place]) HPI General Date/Time Provider Initiated Documentation: 12/14/21 00:44 . HPI Narrative: This is a 66-year-old female with a past medical history of hypertrophic cardiomyopathy, distant history of seizures, hypertension, high cholesterol, hypothyroidism, migraines, obstructive sleep apnea, who presents today for evaluation of a generalized feeling of being off. Patient states that starting this evening and to a much lesser degree earlier this morning, she has felt slightly weak and dizzy throughout the day. No focal component. She feels lightheaded whenever she stands up. She noticed that her blood pressure was elevated this evening and it concerned her. EMS was called, and her blood pressure decreased at the time they arrived and she decided to come by POV. She denies any headache, neck pain, or seizure. She has been taking her medication as directed. She denies any numbness or tingling. She repeatedly states that something just feels off. She denies any vomiting or diarrhea. She denies any dietary changes. No room spinning sensation. No tinnitus. No other complaints at this time. Related Data Home Medications Medication Instructions Recorded Confirmed ascorbic acid (vitamin C) 500 mg 500 mg PO DAILY 07/24/14 12/14/21 chewable tablet (Vitamin C) multivitamin (Daily Multi-Vitamin 1 ea PO DAILY 07/24/14 12/14/21 tablet) calcium carbonate 300 mg (750 mg) 300 mg PO BID 08/28/14 12/14/21 chewable tablet (Tums) cranberry extract 250 mg capsule 250 mg PO BID 01/21/17 12/14/21 folic acid 800 mcg tablet 0.8 mg PO DAILY 01/29/17 12/14/21 cholecalciferol (vitamin D3) 25 25 mcg PO DAILY 02/17/17 12/14/21 mcg (1,000 unit) capsule hydroxyzine HCl 25 mg tablet 25 mg PO Q4H PRN #120 tab-caps 09/21/17 12/14/21 naproxen sodium 550 mg tablet 550 mg PO BID PRN #60 tab-caps 10/14/17 12/14/21 latanoprost 0.005 % eye drops 1 drp ophthalmic (eye) QPM 12/22/18 12/14/21 (Xalatan) aspirin 81 mg tablet,delayed 81 mg PO DAILY 01/16/19 12/14/21 release (David Low Dose Aspirin) ondansetron HCl 4 mg tablet 4 mg PO Q8H PRN #10 tabs 08/31/19 12/14/21 (Zofran) magnesium oxide 500 mg PO DAILY PRN headache 11/15/20 12/14/21 levothyroxine 75 mcg tablet 75 mcg PO DAILY #90 tab-caps 02/11/21 12/14/21 gabapentin 300 mg capsule 300 mg PO QHS #90 caps 03/20/21 12/14/21 lamotrigine 200 mg tablet,extended 200 mg PO BID #180 tabs 03/20/21 12/14/21 release 24 hr lisinopril 20 mg tablet 20 mg PO HS 03/20/21 12/14/21 ibuprofen 600 mg tablet 600 mg PO Q8H PRN pain #30 tabs 03/28/21 12/14/21 cyclobenzaprine 10 mg tablet 10 mg PO HS PRN muscle spasm #20 04/16/21 12/14/21 tabs metoprolol succinate 100 mg 100 mg PO DAILY #90 tabs 10/03/21 12/14/21 tablet,extended release 24 hr sumatriptan succinate 50 mg tablet See Rx Instructions PO .COMPLEX 10/21/21 12/14/21 #12 tabs cephalexin 500 mg capsule 500 mg PO QID 7 days #28 caps 12/14/21 Previous Rx's Medication Instructions Recorded hydroxyzine HCl 25 mg tablet 25 mg PO Q4H PRN #120 tab-caps 09/21/17 naproxen sodium 550 mg tablet 550 mg PO BID PRN #60 tab-caps 10/14/17 ondansetron HCl 4 mg tablet 4 mg PO Q8H PRN #10 tabs 08/31/19 (Zofran) levothyroxine 75 mcg tablet 75 mcg PO DAILY #90 tab-caps 02/11/21 gabapentin 300 mg capsule 300 mg PO QHS #90 caps 03/20/21 lamotrigine 200 mg tablet,extended 200 mg PO BID #180 tabs 03/20/21 release 24 hr ibuprofen 600 mg tablet 600 mg PO Q8H PRN pain #30 tabs 03/28/21 cyclobenzaprine 10 mg tablet 10 mg PO HS PRN muscle spasm #20 04/16/21 tabs metoprolol succinate 100 mg 100 mg PO DAILY #90 tabs 10/03/21 tablet,extended release 24 hr sumatriptan succinate 50 mg tablet See Rx Instructions PO .COMPLEX 10/21/21 #12 tabs cephalexin 500 mg capsule 500 mg PO QID 7 days #28 caps 12/14/21 Allergies Allergy/AdvReac Type Severity Reaction Status Date / Time divalproex sodium AdvReac Verified 12/14/21 01:29 [From Depakote] General DOMINGA: 3 Review of Systems All systems reviewed & are unremarkable except as noted in HPI and below PFSH All Active Problems (Updated 12/14/21 @ 03:18 by Ezekiel Miguel DO) Urinary tract infection (Acute) Weight loss (Acute) Foot pain, left (Acute) Bilateral cataracts (Acute) Quadriceps muscle rupture (Acute) Leg pain, right (Acute) Neck pain (Acute) Dizziness (Acute) Headache (Acute) Lightheadedness (Acute) Basal cell carcinoma (BCC) of skin of face (Acute) Skin lesion of cheek (Acute) Sensorineural hearing loss of both ears (Acute) Conductive hearing loss, external ear (Acute) Impacted cerumen (Acute) Thompson (Acute) Tinnitus (Acute) Imbalance (Acute) Right flank pain (Acute) Hypertrophic cardiomyopathy (Acute) Internal hemorrhoids (Acute) Colorectal polyps (Acute) Vertigo (Acute) Seizure disorder (Acute) Tubular adenoma (Acute 09/12/13) 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 4.7mm. Yearly mammograms recommended. 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 Sz at night. Currently stable on Lamictal. Last seizure 2009 Glaucoma (Acute 03/14/15) Kidney stone (Acute 08/24/14) Migraine without aura and without status migrainosus, not intractable (Acute 03/23/17) Medical History Brain abscess 1972; FRONTAL LOBE with shunt Displaced transverse fracture of right patella, subsequent encounter for closed fracture with malunion (08/01/16) Dyspareunia clitoral pain. Compounded vaginal E2 cream thru [facility] not effective. Elbow fracture, left Pancreatitis (01/16/17) Valproic acid toxicity 2017. Hospitalized at [facility]. Significant recovery. Surgical History section (~1989) Dilation and curettage LAMINECTOMY LUMBAR Ligation of fallopian tube ORIF R Patella 02/13/16 S/P colonoscopy (~04/27/19) 2013- Tubular adenoma Tonsillectomy VENTRICULAR SHUNT after I+D of brain abcess. No issues. Family History Mother , age 94 CHF (congestive heart failure) A-fib Hypertension Father , age 78 Essential hypertension Multiple myeloma Brother Essential hypertension Heart disease MVR/Afib COVID Maternal Grandfather No problems noted. Paternal Grandfather Stroke Hypertension Maternal Grandmother No problems noted. Paternal Grandmother Skin cancer Son No problems noted. Daughter No problems noted. 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 Pets and animals: Yes Pets and animals: dog(s) Sexually active: No Do you think of yourself as: straight/heterosexual Current gender identity: female What is your relationship status?: How often do you talk on the phone with friends or family?: three or more times per week How often do you get together with friends or relatives?: three or more times per week How often do you attend advent or jewish services?: decline to answer Do you belong to any clubs or organized social groups?: no Panel score (0-1 are the most socially isolated patients): 2 What type of physical activity do you participate in: walking Duration: > 90 minutes/day Frequency: daily Elvia/Congregation: Nondenominational Special elvia needs: No Seatbelt use: always Drive intox or ride w/intox shuttle van driver: No Do you feel safe at home: Yes Do you feel safe in your relationship?: Yes Female Reproductive History Menstrual Menopause type: natural History History 3 Para Hx # Term Pregnancies 2 Multiple births Hx # Pregnancies Ectopic pregnancies AB induced Hx Number of Living Children AB spontaneous Exam Narrative Exam Narrative: 1.Const: Well-nourished, Well-developed, appearing stated age 2.Eyes: PERRL, no conjunctival injection, and symmetrical lids. 3.ENT: Atraumatic external nose and ears. Notably dry MM. Neck: Symmetric, trachea midline, No thyromegaly. 4.CVS: +S1/S2, No murmurs or gallops. Peripheral pulses 2+ and equal in all extremities. Brisk capillary refill in all extremities. 5.RESP: Unlabored respiratory effort. Clear to auscultation bilaterally. No wheezes rales or rhonchi 6.GI: Soft, Nontender/Nondistended, No hepatosplenomegaly. No guarding or rebound. 7.MSK: Normocephalic/Atraumatic, Extremities w/o deformity or ttp No cyanosis or clubbing, Normal movement of all extremities 8.Skin: Warm, Dry. No rashes or lesions. 9.Neuro: office clerk routine II-XII grossly intact. Sensation grossly intact, no focal neurologic deficits. All 6 cardinal planes of vision are fully intact. No evidence of rotatory or vertical nystagmus. The patient demonstrated a normal [id number], good dexterity. There was no evidence of dysdiadochokinesia. Patient was able to ambulate without difficulty. There was no wide-based gait. Romberg testing was normal. Kikq-lo-[id number] testing was normal. Sensation was intact bilaterally as well as muscle strength bilaterally for all extremities. Patient was able to verbalize butter cup with no slurring, or miss pronunciation. Cerebellar function testing is normal. The patient demonstrates a normal hints exam with no findings concerning for a central event. No vertical nystagmus. The head impulse test is negative for any significant central abnormality. Normal test of skew. No suggestion of a central cerebellar event. 10.Psych: (AAO) x3. Appropriate mood and affect
[2021-12-14 01:04] VITALS: RESP 18
[2021-12-14 01:19] LABS: Abs Immature Grans 0.01 10^3/uL (0.0-0.06); Absolute Basophil Count 0.03 10^3/uL (0.0-0.2); Absolute Eosinophil Count 0.11 10^3/uL (0.0-0.7); Absolute Lymphocyte Count 1.55 10^3/uL (1.2-3.4); Absolute Monocyte Count 0.46 10^3/uL (0.1-0.8); Absolute Neutrophil Count 2.79 10^3/uL (1.2-6.7); Basophils % 0.6; Eosinophils % 2.2; HCT 44.4 % (36.0-46.0); HGB 14.6 g/dL (11.2-15.7); Immature Grans % 0.2; Lymphocytes % 31.3; MCH 27.7 pg (27.0-33.0); MCHC 32.9 % (32.0-36.0); MCV 84 fL (80-95); Monocytes % 9.3; Neutrophils % 56.4; Platelet Count 186 10^3/uL (130-400); RBC 5.28 10^6/uL (3.93-5.22); RDW 13.4 % (11.7-14.6); RDW-SD 41.4 fL; WBC 4.95 10^3/uL (4.4-10.8)
[2021-12-14] MEDS: Normal Saline 1,000 ML 1000 ML IV (01:26)
[2021-12-14 01:44] LABS: ALT 24 U/L (14-59); AST 42 U/L (15-37); Albumin 3.7 g/dL (3.4-5.0); Alkaline Phosphatase 91 U/L (46-116); Anion Gap 5.1 mmol/L (3-11); BUN 24 mg/dL (7-18); Bilirubin, Total 0.4 mg/dL (0.2-1.0); CO2 29.9 mmol/L (21.0-32.0); CREATININE 0.9 mg/dL (0.55-1.02); Calcium 9.4 mg/dL (8.5-10.1); Chloride 106 mmol/L (98-107); Estimated GFR 69.64 (mL/min/1.73m2); Glucose 112 mg/dL (74-106); Potassium 4.9 mmol/L (3.5-5.1); Sodium 141 mmol/L (136-145); TSH (W/Ref FT4) 0.55 uIU/mL (0.36-3.74); Total Protein 7.7 g/dL (6.4-8.2); Troponin I < 50 ng/L (<or=60)
[2021-12-14 02:15] LABS: Bilirubin Negative (Negative); Blood Trace-intact (Negative); Clarity Clear (Clear); Glucose Negative (Negative); Ketones Negative (Negative); Leukocyte Esterase Small (Negative); Nitrite Negative (Negative); Urobilinogen 0.2 EU/dL (Up TO 0.2); pH 7.5 (5-8)
[2021-12-14 02:18] LABS: Bacteria Few HPF (Negative); C & S Indicated? Yes; Casts Negative LPF (Negative); Crystals Negative HPF (Negative); Epithelial Cells Few HPF (Negative); Mucus Negative (Negative); RBC 0-2 HPF (0-2); WBC 20-50 HPF (0-5)
[2021-12-14] MEDS: Omnipaque 350 MG/ML 100 ML BTL IJ (02:23)
--- NOTE | 2021-12-14 02:49 | DI.VRAD_ITS ---
Addendum created by Mikal Ruiz MD on 12/14/2021 2:48:45 AM EDT: THIS REPORT CONTAINS FINDINGS THAT MAY BE CRITICAL TO PATIENT CARE. The findings were verbally communicated via telephone conference with SONNY VERDUZCO at 2:48 AM EDT on 12/14/2021. The findings were acknowledged and understood. Initial report created on 12/14/2021 2:48:19 AM EDT: PROCEDURE INFORMATION: Exam: CTA Head Without And With Contrast, Arteriography Exam date and time: 12/14/2021 2:05 AM Age: 66 years old Clinical indication: Stroke-like symptoms; Altered mental status/memory loss and dizziness/giddiness; Additional info: Dizzy, light headed, confused TECHNIQUE: Imaging protocol: Computed tomographic angiography of the head without and with contrast. Exam focused on the arteries. 3D rendering (Not supervised by radiologist): MIP and/or 3D reconstructed images were created by the technologist. Radiation optimization: All CT scans at this facility use at least one of these dose optimization techniques: automated exposure control; mA and/or kV adjustment per patient size (includes targeted exams where dose is matched to clinical indication); or iterative reconstruction. Contrast material: OMNI 350; Contrast volume: 100 ml; Contrast route: INTRAVENOUS (IV); Other technique: STROKE PROTOCOL was implemented. COMPARISON: CT HEAD WO 03/13/2021 9:27 AM FINDINGS: ANTERIOR CIRCULATION: Right internal carotid artery: Intracranial segment is patent with no significant stenosis or occlusion. No aneurysm. Right middle cerebral artery: No occlusion or significant stenosis to the level of the post bifurcation right M1 segments. No aneurysm. 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 No aneurysm. Left internal carotid artery: Intracranial segment is patent with no significant stenosis. No aneurysm. Left middle cerebral artery: No occlusion or significant stenosis. No aneurysm. Left anterior cerebral artery: No occlusion or significant stenosis. No aneurysm. POSTERIOR CIRCULATION: Right vertebral artery: No occlusion or significant stenosis. No aneurysm. Left vertebral artery: No occlusion or significant stenosis. No aneurysm. Basilar artery: No occlusion or significant stenosis. No aneurysm. Right posterior cerebral artery: No occlusion or significant stenosis. No aneurysm. Left posterior cerebral artery: No occlusion or significant stenosis. No aneurysm. HEAD: Brain: Chronic postsurgical changes suspected involving the anterior right temporal lobe region with chronic encephalomalacia also seen involving the deep and subcortical white matter in the anterior right frontal lobe. No acute cerebral infarct is detected. Cerebral ventricles: Stable in configuration with ventriculostomy catheter again seen entering the skull via a right parietal ramiro hole and crossing the midline with its tip in the region of the frontal horn of the left lateral ventricle. Intraventricular calcifications are also again evident. Bones/joints: Right-sided craniotomy defect again. Paranasal sinuses: Visualized sinuses are normal. No fluid levels. Mastoid air cells: Visualized mastoids are normal. No mastoid effusion. Soft tissues: Unremarkable. IMPRESSION: 1. 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 2. No large vessel stenosis or occlusion detected involving the remaining major branches of the anterior or posterior intracranial circulation. 3. Chronic postsurgical changes and areas of encephalomalacia seen involving the right cerebral hemisphere with no acute infarct detected. ASSESSMENT: ASPECTS ([place] Stroke Program Early CT Score) is 10. PROCEDURE INFORMATION: Exam: CTA Neck Without And With Contrast Exam date and time: 12/14/2021 2:05 AM Age: 66 years old Clinical indication: Stroke-like symptoms; Altered mental status/memory loss and dizziness/giddiness; Additional info: Dizzy, light headed, confused TECHNIQUE: Imaging protocol: Computed tomographic angiography of the neck without and with contrast. 3D rendering (Not supervised by radiologist): MIP and/or 3D reconstructed images were created by the technologist. Radiation optimization: All CT scans at this facility use at least one of these dose optimization techniques: automated exposure control; mA and/or kV adjustment per patient size (includes targeted exams where dose is matched to clinical indication); or iterative reconstruction. Contrast material: OMNI 350; Contrast volume: 100 ml; Contrast route: INTRAVENOUS (IV); COMPARISON: CR XR CERVICAL SP COMP W FLEX/EXT 04/23/2021 11:23 AM FINDINGS: Right common carotid artery: No stenosis. No dissection or occlusion. Right internal carotid artery: No stenosis of the extracranial segment. No dissection or occlusion. Right external carotid artery: No occlusion or stenosis of the origin. Left common carotid artery: No stenosis. No dissection or occlusion. Left internal carotid artery: No stenosis of the extracranial segment. No dissection or occlusion. Left external carotid artery: No occlusion or stenosis of the origin. Right vertebral artery: No stenosis. No dissection or occlusion. Left vertebral artery: No stenosis. No dissection or occlusion. Soft tissues: Normal. No significant soft tissue swelling. Bones/joints: No acute fracture. IMPRESSION: No evidence of 50% or greater stenosis involving the cervical segments of the right or left internal carotid arteries by NASCET criteria. REFERENCES: NASCET CRITERIA. The degree of stenosis in the cervical segment of the internal carotid artery is based on NASCET criteria. Normal is no stenosis. Mild is less than 50% stenosis. Moderate is 50-69% stenosis. Severe is 70% to 99% stenosis. Total occlusion is no detectable patent lumen. Dictated and Authenticated by: Mikal Ruzi MD. Ordering:CAROL Falcon MD
[2021-12-14] MEDS: Ondansetron 4 MG/2 ML VIAL IVP (03:03)
[2021-12-14] MEDS: cefTRIAXone 2 GM/50 ML BAG IVPB (03:13)
[2021-12-14 03:47] VITALS: BP 159/80; PULSE 63; RESP 18; O2SAT 99
[2021-12-17 16:03] LABS: Lamotrigine 9.1 mcg/mL (2.5 - 15.0)
== END 2021-12-14 03:50 | disposition home or self-care (01) ==
PROVIDERS: Emergency Provider Student in an Organized Health Care Education/Training Program; PCP Family Medicine
DX: N39.0 Urinary tract infection, site not specified (principal); I10 Essential (primary) hypertension; R42 Dizziness and giddiness; Z79.82 Long term (current) use of aspirin
CPT/HCPCS: 70496; 70498; 80053; 80175; 93005; 99285; 81003; 81015; 84443; 84484; 85025; 87086; 93010; J2405; J3490

== ENCOUNTER → 2022-02-10 02:07 | Outpatient (CLI) | payer MEDICARE, OTHER, SELFPAY ==
--- NOTE | 2022-02-07 15:48 | SKI_PTH ---
PATIENT: Gia Macario LOC: [facility] U#:[id number] AGE/SX: 70/F ROOM: RE02/10/[address]: Mirta Shultz NP : [id number] BED: DIS: SPEC #: [id number] RECD: 02/10/22 12:32 STATUS: PHILL FORBES #: [id number] JEFRY: 02/07/22 15:[address]: Lexii BAL,Mirta DEPT: Surgical Specimen RECD BY: Gracia Campbell ENTERED: 02/10/22 12:32 SP TYPE: JAMIA TAYLOR DR: Denny Rodas MD Tissues: 1 - SKIN BIOPSY(SHAVE/PUNCH) Procedures: SKIN LEVEL 4 Comments: [id number]
--- NOTE | 2022-02-10 06:45 | DI.US_ITS ---
Exam(s) US PELVIS TRANSVAGINAL EXAM: US PELVIS TRANSVAGINAL CLINICAL HISTORY: bloating, early satiety, LLQ pain,pelvic pain,r10.2,r14.0 TECHNIQUE: Transabdominal and transvaginal imaging was performed using standard protocol. COMPARISON: No exams were available for comparison FINDINGS: KIDNEYS: Kidneys are symmetric in size. No evidence of renal calculi. No evidence of hydronephrosis. No renal mass or cyst identified. UTERUS: Anteverted. 8.4 x 4.1 x 5.4 cm Endometrium: 4 mm Myometrium: Unremarkable. Cervix: Unremarkable. OVARIES: Right: Cyst or mass: None. Left: Cyst or mass: None. DOPPLER: Color: Symmetric and uniform flow to both ovaries. No hyperemia. CUL-DE-SAC: Free fluid: None. IMPRESSION: 1. Normal-appearing uterus with endometrial stripe within normal limits. 2. Unremarkable bilateral ovaries. DATA REPOSITORY:
== END ==
PROVIDERS: PCP Family Medicine; Visit Provider Nurse Practitioner Women's Health
DX: R10.2 Pelvic and perineal pain (principal); R14.0 Abdominal distension (gaseous); C44.310 Basal cell carcinoma of skin of unspecified parts of face
CPT/HCPCS: 76830; 76856; 88305

== ENCOUNTER → 2022-03-11 02:46 | Outpatient (CLI) | payer MEDICARE, OTHER, SELFPAY ==
--- NOTE | 2022-03-11 07:00 | DI.DEXA_ITS ---
Exam(s) XR DEXA BONE DENSITY W/WO JUSTUS EXAM: XR DEXA BONE DENSITY W/WO JUSTUS CLINICAL HISTORY: screening for osteoporosis in postmenopausal woman,z78.0,osteopenia TECHNIQUE: COMPARISON: CR XR PORTABLE CHEST AP from 12/17/2018 FINDINGS: Lateral Spine Image: Mild anterior wedging of the T8 vertebral body. This is of uncertain acuity. Left hip: Total T-Score: -1.1. This is unchanged compared to the prior examination. Total Z-Score: 0.3 T- and Z-scores: Findings are consistent with osteopenia. Lumbar Spine: Total T-Score: 0.3. This compares to 0.0 on the prior examination. Total Z-Score: 2.4 T- and Z-scores: Within normal limits. IMPRESSION: 1. No evidence of osteoporosis. 2. Mild anterior wedging of the T8 vertebral body. This is of uncertain acuity. X-ray of the thorac ic spine may be obtained for further evaluation. Unexpected findings
--- NOTE | 2022-03-11 07:00 | DI.MAMMO_ITS ---
Exam(s) MAMMO SCREENING EXAM: MAMMO SCREENING CLINICAL HISTORY: screening,z12.39 TECHNIQUE: Bilateral full field digital CC and MLO mammographic images were obtained with 3D tomosyn thesis and utilizing computer aided detection (CAD). COMPARISON: Available for comparison. FINDINGS: Masses/Architectural Distortion: There is an ovoid density in the medial retroareolar region on the l eft breast. It appears to represent a skin lesions seen superior to the nipple on the MLO view. A C C view with the skin marker is recommended for confirmation. Microcalcifications: No suspicious pleomorphic-type are seen. Skin Thickening/Nipple Retraction: None. IMPRESSION: 1. An ovoid density in the medial retroareolar region of the left breast appears to represent a skin lesion seen on the superior to the nipple on the MLO view. A single CC view with a skin marker is re commended for confirmation. 2. BI-RADS Category 0 - Assessment Incomplete: Need additional imaging evaluation Breast Density - Category B - Scattered areas of fibroglandular density Breast density category C or D implies that the patient has dense breast tissue. Dense breast tissue is very common and is not abnormal but dense breast tissue can make it harder to find cancer on a ma mmogram. Also, dense breast tissue may increase their breast cancer risk. This information about the result of the mammogram report was provided to the patient to raise their awareness. Use this report when you speak with the patient about their risks for breast cancer, which includes their family hist ory. At that time, you may recommend for more screening tests (Ultrasound or MRI) as they might be us eful based on their risk. A negative radiographic report should not delay biopsy if a dominant or clinically suspicious mass is present. Up to ten percent of cancers are not identified on mammography. A negative report may reinforce clinical impression. Adenosis and dense breasts may obscure an underlying neoplasm. False positive reports average 6 to 10%. Patient will receive a letter notifying them of these results.
== END ==
PROVIDERS: PCP Family Medicine; Visit Provider Nurse Practitioner Women's Health
DX: Z12.31 Encounter for screening mammogram for malignant neoplasm of breast (principal); Z78.0 Asymptomatic menopausal state; R92.8 Other abnormal and inconclusive findings on diagnostic imaging of breast; Z13.820 Encounter for screening for osteoporosis; M85.88 Other specified disorders of bone density and structure, other site
CPT/HCPCS: 77063; 77067; 77080

== ENCOUNTER 2022-03-22 12:01 | Outpatient (REF) | payer MEDICARE, OTHER, SELFPAY | END 2022-03-22 12:02 | disposition home or self-care (01) | LOC: NCHCN 12:01 | PROVIDERS: PCP Family Medicine; Visit Provider Nurse Practitioner Family | DX: J02.9 Acute pharyngitis, unspecified (principal) | CPT/HCPCS: 87070 ==

== ENCOUNTER 2022-04-17 01:19 | Outpatient (CLI) | payer MEDICARE, OTHER, SELFPAY ==
--- NOTE | 2022-04-17 10:30 | DI.MAMMO_ITS ---
Exam(s) MAMMO SCREEN CALL BACK UNI EXAM: MAMMO SCREEN CALL BACK UNI -LEFT CLINICAL HISTORY: F/U MAMMO, OVOID DENSITY,? SKIN LESION, R92.8. TECHNIQUE: Unilateral left breast mammographic images obtained with 3D tomosynthesisand utilizing co mputer aided detection (CAD). As per instructions on the screening mammogram a cutaneous skin marker was placed over a mole anteriorly in the periareolar region of the left breast.. COMPARISON: Prior mammograms were reviewed. This additional imaging was performed due to findings described on the recent screening mammogram of 03/11/2022. FINDINGS: DIAGNOSTIC MAMMOGRAM: Additional mammographic views were performed todayfollowing placement of a skin marker over a mole in the anterior periareolar region left breast. Indeed, this reveals that the nodule??? indeed corresponds to a skin mole. IMPRESSION: 1. Left breast skin mole in the para areolar region. No radiographic evidence of malignancy in the left breast. BI-RADS Category 2 - Benign Findings Breast Density - Category B - Scattered areas of fibroglandular density Breast density Category C or D implies that the patient has dense breast tissue. Dense breast tissue can make it harder to find cancer on a mammogram. Dense breast tissue is also associated with an incr eased risk of breast cancer. This information about the result of the mammogram report was provided to the patient to raise their awareness. Use this report when you speak with the patient about their risks for breast cancer, which includes their family history. At that time, you may recommend additional screening tests (Ultrasoun d or MRI) as these tests may add significant information. A negative radiographic report should not delay biopsy if a dominant or clinically suspicious mass is present. Up to ten percent of cancers are not identified on mammography. A negative report may reinforce clinical impression. Adenosis and dense breasts may obscure an underlying neoplasm. False positive reports average 6 to 10%. Patient will receive a letter notifying them of these results.
== END 2022-04-17 01:39 ==
LOC: DI 01:19
PROVIDERS: PCP Family Medicine; Visit Provider Nurse Practitioner Women's Health
DX: Z12.31 Encounter for screening mammogram for malignant neoplasm of breast (principal); R92.8 Other abnormal and inconclusive findings on diagnostic imaging of breast
CPT/HCPCS: 77063; 77067

== ENCOUNTER → 2022-04-21 12:18 | Outpatient (BNVA) | payer MEDICARE, OTHER, SELFPAY | PROVIDERS: PCP Family Medicine; Referring Provider Family Medicine; Visit Provider Psychiatry & Neurology Neurology | DX: G40.209 Localization-related (focal) (partial) symptomatic epilepsy and epileptic syndromes with complex partial seizures, not intractable, without status epilepticus (principal); G43.009 Migraine without aura, not intractable, without status migrainosus; G25.0 Essential tremor; R26.89 Other abnormalities of gait and mobility; I10 Essential (primary) hypertension | CPT/HCPCS: 99214 ==

== ENCOUNTER 2022-07-16 20:53 | Outpatient (REF) | payer MEDICARE, OTHER, SELFPAY | END 2022-07-16 20:54 | disposition home or self-care (01) | LOC: LBN 20:53 | PROVIDERS: PCP Family Medicine; Visit Provider Family Medicine | DX: N39.0 Urinary tract infection, site not specified (principal) | CPT/HCPCS: 87086 ==

== ENCOUNTER → 2022-09-11 09:57 | Outpatient (BNVA) | payer MEDICARE, OTHER, SELFPAY | PROVIDERS: PCP Family Medicine; Referring Provider Family Medicine; Visit Provider Physical Therapy Assistant | DX: Z12.11 Encounter for screening for malignant neoplasm of colon (principal); Z86.010 Personal history of colon polyps ==

== ENCOUNTER 2022-10-13 14:55 | Outpatient (REF) | payer MEDICARE, OTHER, SELFPAY ==
[2022-10-13 22:55] LABS: Bilirubin Negative (Negative); Blood Trace-intact (Negative); Clarity Clear (Clear); Glucose Negative (Negative); Ketones Negative (Negative); Leukocyte Esterase Small (Negative); Nitrite Negative (Negative); Urobilinogen 0.2 mg/dL (Up to 0.2)
[2022-10-13 23:57] LABS: Bacteria Rare HPF (Negative); C & S Indicated? Yes; Casts Negative LPF (Negative); Crystals Negative HPF (Negative); Epithelial Cells Rare HPF (Negative); Mucus Negative (Negative); RBC 0-2 HPF (0-2)
== END 2022-10-13 14:56 | disposition home or self-care (01) ==
LOC: LBN 14:55
PROVIDERS: PCP Family Medicine; Visit Provider Physician Assistant
DX: N39.0 Urinary tract infection, site not specified (principal)
CPT/HCPCS: 81003; 81015; 87086

== ENCOUNTER 2022-10-21 10:08 | Day surgery (SDC) | payer MEDICARE, OTHER, SELFPAY ==
--- NOTE | 2022-10-20 22:39 | COLE_ITS ---
Date of service: 10/21/22 Time of Service: 10:30 Colonoscopy Report Date of procedure: 10/21/22 Pre-op diagnosis general: tubular adenomas Post-op diagnosis procedure note: same Surgeon: Citlaly Landa Anesthesia Type: General:No Airway Estimated blood loss (mL): 1 Pathology: other Complications: None Disposition: same day Prep: Miralax/Dulcolax Retraction Time: 12 Findings: 12 Procedure Description: After informed consent was obtained the patient was taken to the procedure room and placed in a left decubitous position. Monitors were applied and a time out was done. The patients name, date of , procedure, allergies to medications and metal in their body was reviewed. The patient was then sedated. Once sedated and comfortable a rectal exam was done. External exam was normal, except for small external hemorrhoids. Internal exam revealed a normal sphincter tone and no palpable masses. The scope was then introduced and retrofelexed. Grade 1 internal hemorrhoids were identified. The scope was then advanced to the cecum without difficulty. The TI and appendiceal orifice were identified. The prep was BBPS 3 in all segments for total of 9. The scope was then slowly retracted over 12 minutes back into the rectum. She had 5 mm flat polyps at 70 cm and 50 cm. Both of these polyps are removed with a cold biting forcep. All specimen is retrieved a nd no bleeding was notable. There are no AVMs or diverticula visualized today. the scope was removed and the patient was woken up and taken back to Same day surgery in stable condition. The patient tolerated the procedure well and there were no immediate complications. Follow up: The patient should follow up in 5-7 years, pathology pending, unless they develop changes in bowel habits or other new gastrointestinal complaints.
--- NOTE | 2022-10-20 22:42 | PDOC.DSDIS_ITS ---
Date of service: 10/21/22 Time of Service: 12:32 Discharge Plan Disposition Patient Disposition: Home Condition: Good Discharge Details Reason For Visit: colon scope Attending Provider: Citlaly Landa Primary Care Provider: Denny Rodas Home Meds and New Rx's Prescriptions: Continued magnesium oxide 400 mg magnesium capsule 500 mg PO DAILY PRN (Reason: headache) Patient Comments: cyclobenzaprine 10 mg tablet 10 mg PO HS PRN (Reason: muscle spasm) Qty: 20 0RF docusate sodium [Dulcolax Stool Softener (dss)] 100 mg capsule 100 mg PO DAILY phenazopyridine [Pyridium] 100 mg tablet 100 mg PO TID PRN (Reason: pain) Qty: 20 0RF ondansetron HCl 4 mg tablet 4 mg PO Q8H PRN (Reason: nausea) Qty: 10 1RF ondansetron 4 mg tablet,disintegrating 4 mg PO TID-QID PRN (Reason: nausea and vomiting) Qty: 20 0RF sumatriptan succinate 50 mg tablet See Rx Instructions PO .COMPLEX Qty: 9 11RF Rx Instructions: take 1 tab at onset of headache; if no relief may repeat 1 tab after at least 2 hrs; max = 4 tabs/24 hr PO gabapentin 300 mg capsule 300 mg PO QHS Qty: 90 3RF biotin 1 mg capsule 1 mg PO DAILY polyethylene glycol 3350 17 gram/dose powder 17 g PO ONCE Qty: 238 0RF Rx Instructions: Take per colonoscopy instructions provided by ordering providers office meclizine 25 mg tablet 25 mg PO TID Qty: 14 0RF multivitamin [Daily Multi-Vitamin] 1 EACH tablet 1 ea PO DAILY cranberry extract 250 MG capsule 250 mg PO BID folic acid 0.8 MG tablet 0.8 mg PO DAILY hydroxyzine HCl 25 MG tablet 25 mg PO Q4H PRN Qty: 120 3RF Rx Instructions: prn dizziness or headache lisinopril 20 mg tablet 20 mg PO HS Qty: 90 3RF lamotrigine 200 mg tablet extended release 24hr 200 mg PO BID Qty: 180 3RF levothyroxine 75 mcg tablet 75 mcg PO DAILY Qty: 90 3RF metoprolol succinate 100 mg tablet extended release 24 hr 100 mg PO DAILY Qty: 90 3RF Held ascorbic acid (vitamin C) [Vitamin C] 500 MG tablet,chewable 500 mg PO DAILY Hold Instructions: Resume on 10/27/22. aspirin [David Low Dose Aspirin] 81 mg Tablet,Delayed Release (Dr/Ec) 81 mg PO DAILY Hold Instructions: Resume on 10/28/22. Discontinued bisacodyl [Dulcolax (bisacodyl)] 5 mg tablet,delayed release (DR/EC) 5 mg PO ONCE Qty: 4 0RF Rx Instructions: Take per colonoscopy instructions provided by ordering providers office No Action ibuprofen 600 mg tablet 600 mg PO Q8H PRN (Reason: pain) Qty: 30 2RF calcium carbonate [Tums] 300 MG tablet,chewable 300 mg PO BID cholecalciferol (vitamin D3) 1,000 UNIT capsule 25 mcg PO DAILY naproxen sodium 550 MG tablet 550 mg PO BID PRN Qty: 60 3RF Discharge Instructions Additional Instructions: [facility] Colonoscopy Post- Op Instructions Instructions for Everyone who is given Anesthesia: For your safety, please do the following for the next twenty-four (24) hours: *Do Not operate a motor vehicle (car, truck, motorcycle, etc.) *Do Not drink alcoholic beverages or use any recreational drugs for the first 24 hours or while taking pain medications. The medications in your body may have a reaction that can be dangerous. *Do Not make any important decisions or sign any important papers. Findings: x2 polyps. Follow up: -Office will send a letter in 2 to 3 weeks time with results of the polyps and when we want you to repeat the colonoscopy. 1. No lifting over 20 pounds or strenuous activity for the first 24 hours after your procedure. After 24 hours there are no restrictions on your activity but you may feel fatigued for a few days. 2. After you arrive home you may have a light meal and return to your normal diet as you can tolerate it without feeling sick to your stomach. 3. You may have a bloated, gaseous feeling in your belly (abdomen) after a colonoscopy. Passing gas and belching will help. Walking or lying down on your left side with your knees flexed may relieve the discomfort. Call the office at [phone] (Office) or [phone] (Hospital) right away if you notice any of the following: a.Vomiting of blood or ?coffee ground stools?. b.Rectal bleeding 1Tbsp, blood clots or continuous bleeding. c.Severe belly (abdominal) pain. d.A hard distended belly (abdomen) and an inability to pass gas. 4. Please don?t expect to have a normal BM (bowel movement) for 2-3 days after your procedure. 5. If there are questions regarding the findings of your procedure, please contact your doctor 6. If you are unable to contact your doctor with a problem, contact the hospital at [phone]. 7. Continue all your regular medications unless directed otherwise. I understand the above instructions and have no questions. Signature of Patient or Adult Escort Name of Responsible Adult Escort Signature of Nurse Date/Time Stand Alone Forms: Anesthesia Discharge Inst., [facility] ([facility]) Activity:: See above Diet:: See above Discharge Orders Discharge Orders: Discharge Order (Routine); Ordered 10/21/22 Ordered By: Citlaly Landa DS: Diagnosis Discharge Diagnosis (1) Seizure disorder: Status: Acute (2) Tubular adenoma: Status: Acute Asessment and Plan: The patient is seen and examined after their colonoscopy.? The patient has been able to pass gas.? They are not having abdominal pain.? They have been able to tolerate liquids and a snack.? They do not have any nausea or vomiting.? They are not having any chest pain or shortness of breath.??? They are not having any rectal bleeding. Their vital signs have been stable-see nursing notes. We discussed findings during their colonoscopy, and any biopsies that were done/polyps that were removed. The patient will be sent a letter with any biopsy results, and when to repeat the colonoscopy.-see discharge instructions. Patient was given explicit instructions to follow-up regarding colonoscopy-refer to discharge instructions.? We reviewed resumption of medications. Patient verbalized understanding and discharged in stable and satisfactory condition- See nursing notes. (3) Migraine without aura and without status migrainosus, not intractable: Status: Acute (4) Kidney stone: Status: Acute (5) Glaucoma: Status: Acute (6) Cyst of breast, right, benign solitary: Status: Acute (7) SHERLY (obstructive sleep apnea): Status: Chronic (8) Basal cell carcinoma (BCC) of skin of face: Status: Acute
--- NOTE | 2022-10-21 09:12 | ANES.PREOP_ITS ---
General Info Date of Service Date Performed: 10/21/22 Height: 5 ft 9 in Weight: 58.967 kg Body Mass Index (BMI): 19.2 Surgical Procedure: Operation Date: 10/21/22 11:05 Proposed Procedure Side Surgeon mauri Landa, DO Meds Allergies and Home Medications Allergies Allergy/AdvReac Type Severity Reaction Status Date / Time divalproex sodium AdvReac Verified 10/20/22 10:15 [From [facility]] Home Medication Medication Instructions Recorded ascorbic acid (vitamin C) 500 mg 500 mg PO DAILY 07/24/14 chewable tablet (Vitamin C) multivitamin (Daily Multi-Vitamin 1 ea PO DAILY 07/24/14 tablet) calcium carbonate 300 mg (750 mg) 300 mg PO BID 08/28/14 chewable tablet (Tums) cranberry extract 250 mg capsule 250 mg PO BID 01/21/17 folic acid 800 mcg tablet 0.8 mg PO DAILY 01/29/17 cholecalciferol (vitamin D3) 25 25 mcg PO DAILY 02/17/17 mcg (1,000 unit) capsule hydroxyzine HCl 25 mg tablet 25 mg PO Q4H PRN #120 tab-caps 09/21/17 naproxen sodium 550 mg tablet 550 mg PO BID PRN #60 tab-caps 10/14/17 aspirin 81 mg tablet,delayed 81 mg PO DAILY 01/16/19 release (David Low Dose Aspirin) magnesium oxide 500 mg PO DAILY PRN headache 11/15/20 ibuprofen 600 mg tablet 600 mg PO Q8H PRN pain #30 tabs 03/28/21 cyclobenzaprine 10 mg tablet 10 mg PO HS PRN muscle spasm #20 12/18/21 tabs docusate sodium 100 mg capsule 100 mg PO DAILY 01/14/22 (Dulcolax Stool Softener (docusate)) lisinopril 20 mg tablet 20 mg PO HS #90 tabs 01/14/22 lamotrigine 200 mg tablet,extended 200 mg PO BID #180 tabs 03/25/22 release 24 hr gabapentin 300 mg capsule 300 mg PO QHS #90 caps 04/21/22 sumatriptan succinate 50 mg tablet See Rx Instructions PO .COMPLEX #9 04/21/22 tabs phenazopyridine 100 mg tablet 100 mg PO TID PRN pain #20 tabs 07/16/22 (Pyridium) ondansetron 4 mg disintegrating 4 mg PO TID-QID PRN nausea and 08/08/22 tablet vomiting #20 tabs ondansetron HCl 4 mg tablet 4 mg PO Q8H PRN nausea #10 tabs 08/08/22 levothyroxine 75 mcg tablet 75 mcg PO DAILY #90 tab-caps 08/25/22 biotin 1 mg capsule 1 mg PO DAILY 09/11/22 polyethylene glycol 3350 17 17 g PO ONCE #238 grams 09/11/22 gram/dose oral powder metoprolol succinate 100 mg 100 mg PO DAILY #90 tabs 09/17/22 tablet,extended release 24 hr meclizine 25 mg tablet 25 mg PO TID #14 tabs 10/13/22 Current Visit Medications: Current Medications Generic Name Dose Route Start Last Admin Trade Name Freq PRN Reason Stop Dose Admin Hyoscyamine Sulfate 0.125 mg 10/21/22 10:37 Hyoscyamine 0.125 Mg Sl/Oral/Chew SL 11/20/22 10:36 DIRECTED PRN Ringer's Solution 1,000 mls @ 80 mls/hr 10/21/22 06:00 IV 10/21/22 23:59 INFUSION SIENNA IV Miscellaneous Supplies 1 each 10/21/22 06:00 Iv Access IV 10/21/22 23:59 DIRECTED SIENNA Sodium Chloride 0 ml 10/21/22 06:00 Normal Saline Flush 10 Ml Syr IV 10/21/22 23:59 PRN PRN Sodium Chloride 0 ml 10/21/22 06:00 Normal Saline 10 Ml Vial IJ 10/21/22 23:59 DIRECTED PRN Sterile Water 0 ml 10/21/22 06:00 Water,Injection,Sterile 10 Ml Vial IJ 10/21/22 23:59 DIRECTED PRN PFSH Active Problems Active Problems: Problem Status Onset Code Vertigo R42 Seizure disorder G40.909 Tubular adenoma 09/12/13 D36.9 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/20/16 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 Migraine without aura and without status migrainosus, not intractable 03/23/17 G43.009 Kidney stone 08/24/14 N20.0 Glaucoma 03/14/15 H40.9 Essential tremor 01/01/16 G25.0 Cyst of breast, right, benign solitary 01/24/15 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 Colitis 01/16/17 K52.9 Basal cell carcinoma of face C44.310 SHERLY (obstructive sleep apnea) G47.33 Hypothyroidism E03.9 Osteopenia M85.80 Inflamed seborrheic keratosis L82.0 LVH (left ventricular hypertrophy) I51.7 Hypertension I10 Colorectal polyps K63.5 Internal hemorrhoids K64.8 Hypertrophic cardiomyopathy I42.2 Right flank pain R10.9 Imbalance R26.89 Tinnitus H93.19 Placedo L84 Impacted cerumen H61.20 Conductive hearing loss, external ear H90.2 Sensorineural hearing loss of both ears H90.3 Skin lesion of cheek L98.9 Basal cell carcinoma (BCC) of skin of face C44.310 Lightheadedness R42 Dizziness R42 Headache R51.9 Neck pain M54.2 Leg pain, right M79.604 Quadriceps muscle rupture S76.119A Bilateral cataracts H26.9 Foot pain, left M79.672 Weight loss R63.4 Influenza J11.1 Medical History Medical History Brain abscess 1971; FRONTAL LOBE with shunt Displaced transverse fracture of right patella, subsequent encounter for closed fracture with malunion (08/01/16) Dyspareunia clitoral pain. Compounded vaginal E2 cream thru [facility] not effective. Elbow fracture, left Pancreatitis (01/16/17) Valproic acid toxicity 2017. Hospitalized at [facility] [place]. Significant recovery. Surgical History Surgical History (Updated 10/20/22 @ 10:13 by Jatinder Goldman) section (~1989) Dilation and curettage History of cataract surgery LAMINECTOMY LUMBAR Ligation of fallopian tube ORIF R Patella 02/13/16 S/P colonoscopy (~04/27/19) 2014- Tubular adenoma Tonsillectomy VENTRICULAR SHUNT after I+D of brain abcess. No issues. 1971. F/U with neuro [place]aten 04/21/22 Tobacco Smoking/Tobacco Use Status: Never Passive smoking exposure: No Second hand exposure: No Alcohol Alcohol Intake: never Substance Use Substance use: Never Substance use type: does not use Prental History History 3 Para Hx # Term Pregnancies 2 Multiple births Hx # Pregnancies Ectopic pregnancies AB induced Hx Number of Living Children AB spontaneous Vital Signs and Lab Results Vital Signs Most Recent Vital Signs in EMR: Temp Pulse Resp BP Pulse Ox 36.4 C L 73 16 139/75 99 10/21/22 10:10/21/22 10:10/21/22 10:22 10/21/22 10:10/21/22 10:22 Lab Results Blood Type / Crossmatch: No Data to Display Complete Blood Count: No Data to Display Complete Metabolic Panel: No Data to Display Liver Function Panel: No Data to Display Coagulation Panel: No Data to Display Cardiac Panel: No Data to Display Arterial Blood Gas: No Data to Display Venous Blood Gas: No Data to Display Pancreas Panel: No Data to Display Thyroid Panel: No Data to Display Infectious Disease: No Data to Display Blood Cultures: No Data to Display Toxicology Panel: No Data to Display Imaging and Studies Imaging and Studies Study information below may be from another EMR and interpreted by another provider. Please see original notes in EMR for more complete details. EKG Summary: 01/02 sinus, LAFB. Stress Test Summary: 12/30: normal perfusion and contraction. Echocardiogram Summary: 03/01: LVEF 65%, moderate septal thickening, moderate MR, trace TR. Pulmonary Function Summary: 05/02: mild obstructive dz. Anesthesia Assessment and Plan Anesthesia History Personal History: No History of Anesthesia Complications Family History: No Family History of Anesthesia Complications Exercise Tolerance Exercise Tolerance: Metabolic Equivalents>4 Cardiac & Pulmonary Exam Cardiac Exam: Normal S1/S2 Heart Sounds Pulmonary Exam: Clear Bilateral Breath Sounds Implantable Cardiac Device Does patient have a Pacemaker or an ICD?: No Airway Exam Known Difficult Airway: No Mallampati Class: 4 Mouth Opening: Normal (> 3cm) Thyromental Distance: Greater than 3 cm Neck Range of Motion: Full ROM Neck Circumference: Normal Teeth Condition: Normal Dentition ASA Classification ASA Score: ASA 3 Emergency Case?: No NPO Status NPO Status: NPO Clears >2 hours, Solids >8 hours Anesthesia Plan Resuscitation Status: Full Code Anesthesia Technique: General Anesthesia Airway Planned: Natural Airway Monitors Used: Standard Monitors Preoperative Comments:: 67 yo female for colo. Sig PMHx: SHERLY, brain abscess/SUBMERSIBLE PILOT shunt/sz, hypothyroid, HTN, tremor,
[2022-10-21 09:16] VITALS: BMI 19.2
[2022-10-21 10:22] VITALS: BP 139/75; PULSE 73; RESP 16; TEMP 36.4; O2SAT 99
[2022-10-21] MEDS: Lactated Ringers 1,000 ML 80 ML IV (11:00)
--- NOTE | 2022-10-21 11:08 | W.PM.HP.N ---
Date of service: 10/21/22 Time of Service: 11:08 Assessment and Plan Assessment and plan (1) Tubular adenoma: Status: Acute Assessment and plan: Plan: Colonoscopy w/ general & natural airway. The?patient will be scheduled by my office. The pt understands that they need to do a bowel prep and the importance of hydration during this.? The patient understands there is a theoretical risk of renal failure.? For healthy patients we use Gatorade/Miralax Prep.? ?For anyone with renal concerns- GoLytely will be used. Plavix and coumadin will need to be held except in unusual circumstances. ? Patients in A. Fib do not need to be bridged with Lovenox or on CVA prophylaxis.? A baby ASA can be continued but full dose ASA needs to be stopped for 10 days prior to the procedure. A complete H & P is required within 30 days of the procedure.? GETA w/natural airway is used for the colonoscopy.? Informed consent is obtained for the procedural (explained in simple layman's terms that?the pt and/or family could understand) explaining risks vs benefits and alternatives to the procedure and consequences if we do not do the procedure and need/rational for the procedure. Risks include but are not limited to: bleeding, infection, perforation of colon.? This would necessitate emergency surgery to repair the damage w/ possible ostomy; and other associated complications w/ the required surgery. ? Also complications of anesthesia including aspiration, [place]/CVA/, inability to complete the procedure. I discussed with the?patient would they could expect during the procedure, post procedure and recovery time and risks.? The patient understands that they need to have a ride home after the procedure.? The patient was given all this information in writing and expressed understanding. If there are any questions or concerns please feel free to contact our office.? 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: Status: Acute (4) Migraine without aura and without status migrainosus, not intractable: Status: Acute (5) Kidney stone: Status: Acute (6) Glaucoma: Status: Acute (7) Essential tremor: Status: Acute (8) Complex partial epilepsy with generalization: Status: Acute (9) Basal cell carcinoma of face: Status: Acute (10) SHERLY (obstructive sleep apnea): Status: Chronic (11) Hypothyroidism: Status: Chronic (12) Osteopenia: Status: Acute (13) LVH (left ventricular hypertrophy): Status: Acute (14) Hypertension: Status: Chronic (15) Colorectal polyps: Status: Acute (16) Internal hemorrhoids: Status: Acute (17) Hypertrophic cardiomyopathy: Status: Acute (18) Sensorineural hearing loss of both ears: Status: Acute History of Present Illness Narrative: Today Patient is here today for colonoscopy for adenomatous polyps.??? They completed a bowel prep with just a clear yellow residual effluent.? They not having any chest pain or shortness of breath, currently.? They are not experiencing any fever or chills.? They deny any productive cough or upper respiratory tract infection signs or symptoms.? They are having some badmoonal pain or ncause. She will occassionally have some LLQ pain when she is constipated. She does use stool sosftners. She has tried fiber: doen't think it helped. ? They have not had any changes in medications, past medical history or past surgical history since previously being seen in the office. They have not had any accidents or have been in the ER since the clinic pre-operative evaluation. ??I reviewed the procedure with the patient today, including risks and benefits of the procedure, and what they could expect at home for recovery.? All questions are answered to the patient?s satisfaction today, and they are stable to proceed with the proposed procedure. clinic visit 09/11/22: 67 y/o female with history of hypertrophic cardiomyopathy, HTN, seizure disorder (s/p [employer] shunt), essential tremor, LVH, SHERLY, hypothyroidism, migraines and glaucoma presents for colonoscopy screening pre-op.? Her last colonoscopy was in 2019 which remarkable for tubular adenomatous polyps x3.? She denies a family history of colon cancer. She denies any changes in bowel habits including bloody or black tarry stools, abdominal pain, diarrhea or constipation.? She occasionally experiences bloating after eating and discomfort in the left lower quadrant.? She does occasionally take stool softeners to ensure regular BMs.? She denies constitutional symptoms.? She denies chest pain, palpitations, dyspnea or dyspnea with exertion. She denies prior history or family history of adverse reactions or complications with anesthesia. The patient denies any history of stroke, [place], seizures, bleeding or clotting disorders. She denies having any implanted metal in her body. Her last colonoscopy was in 2019 which remarkable for tubular adenomatous polyps x3.? She denies a family history of colon cancer. She denies any changes in bowel habits including bloody or black tarry stools, abdominal pain, diarrhea or constipation.? She occasionally experiences bloating after eating and discomfort in the left lower quadrant.? She does occasionally take stool softeners to ensure regular BMs.? -Discussed colonoscopy bowel prep as well as the procedure. Discussed possible complications of the procedure to include bleeding, pain, perforation, missed small lesion/polyp, sore throat, aspiration and adverse reaction to the medications. Questions were answered to patient?s satisfaction. No guarantees were implied or given.? Anesthesia: general (without airway) Previous surgical intolerances: None Previous surgical complications: None Pulmonary risk factors:? None PFT's: None Planned procedure: Yes Sleep apnea risks: Yes Can climb one flight of stairs (12-13 steps) in less than 30 seconds without stopping and without symptoms: Yes The surgery proposed for this patient is: Low risk Active cardiac conditions: None [place] [facility] [place] indeterminate for ischemia secondary to poor exertional tolerance, 85% of predicted.? Stress Test: None Active risk factors: None ASA (acetylsalicylic acid): Yes Beta blockers: Yes Anti-coagulation: No Medications to be held- Aspirin, naproxen, vitamins and supplements for 5 days prior to the procedure. Lisinopril the morning of the procedure. 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 4.7mm. Yearly mammograms recommended. 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 Sz at night. Currently stable on Lamictal. Last seizure 2009 Colitis (Acute 01/16/17) Basal cell carcinoma of face (Acute) SHERLY (obstructive sleep apnea) (Chronic) does not use device Hypothyroidism (Chronic) Osteopenia (Acute) Inflamed seborrheic keratosis (Acute) LVH (left ventricular hypertrophy) (Acute) Hypertension (Chronic) Colorectal polyps (Acute) Internal hemorrhoids (Acute) Hypertrophic cardiomyopathy (Acute) Right flank pain (Acute) Imbalance (Acute) Tinnitus (Acute) [place] (Acute) Impacted cerumen (Acute) Conductive hearing loss, external ear (Acute) Sensorineural hearing loss of both ears (Acute) Skin lesion of cheek (Acute) Basal cell carcinoma (BCC) of skin of face (Acute) Lightheadedness (Acute) Dizziness (Acute) Headache (Acute) Neck pain (Acute) Leg pain, right (Acute) Quadriceps muscle rupture (Acute) Bilateral cataracts (Acute) Foot pain, left (Acute) Weight loss (Acute) Influenza (Acute) Medical History Brain abscess 1972; FRONTAL LOBE with shunt Displaced transverse fracture of right patella, subsequent encounter for closed fracture with malunion (08/01/16) Dyspareunia clitoral pain. Compounded vaginal E2 cream thru [facility] not effective. Elbow fracture, left Pancreatitis (01/16/17) Valproic acid toxicity 2017. [place] [facility] [place] Significant recovery. Surgical History section (~1989) Dilation and curettage History of cataract surgery LAMINECTOMY LUMBAR Ligation of fallopian tube ORIF R Patella 02/13/16 S/P colonoscopy (~04/27/19) 2014- Tubular adenoma Tonsillectomy VENTRICULAR SHUNT after I+D of brain abcess. No issues. 1972. F/U with neuro [facility]aten 04/21/22 Family History Mother , age 94 CHF (congestive heart failure) A-fib Hypertension Father , age 78 Essential hypertension Multiple myeloma Brother Essential hypertension Heart disease MVR/Afib COVID Maternal Grandfather No problems noted. Paternal Grandfather Stroke Hypertension Maternal Grandmother No problems noted. Paternal Grandmother Skin cancer Son No problems noted. Daughter No problems noted. 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 Pets and animals: Yes Pets and animals: dog(s) Sexually active: No Do you think of yourself as: straight/heterosexual Current gender identity: female What is your relationship status?: How often do you talk on the phone with friends or family?: three or more times per week How often do you get together with friends or relatives?: three or more times per week How often do you attend episcopal or gnosticist services?: decline to answer Do you belong to any clubs or organized social groups?: no Panel score (0-1 are the most socially isolated patients): 2 What type of physical activity do you participate in: none Frequency: does not exercise Elvia/Scientologist: Druze Special elvia needs: No Seatbelt use: always Helmet use: No Drive intox or ride w/intox 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: No Do you feel safe at home: Yes Do you feel safe in your relationship?: Yes Female Reproductive History Menstrual Menopause type: natural History History 3 Para Hx # Term Pregnancies 2 Multiple births Hx # Pregnancies Ectopic pregnancies AB induced Hx Number of Living Children AB spontaneous Meds Allergies and Home Medications Allergies Allergy/AdvReac Type Severity Reaction Status Date / Time divalproex sodium AdvReac Verified 10/20/22 10:15 [From Depakote] Home Medications Medication Instructions Recorded Confirmed Type ascorbic acid (vitamin C) 500 mg 500 mg PO DAILY 07/24/14 10/21/22 History chewable tablet (Vitamin C) multivitamin (Daily Multi-Vitamin 1 ea PO DAILY 07/24/14 10/21/22 History tablet) calcium carbonate 300 mg (750 mg) 300 mg PO BID 08/28/14 10/21/22 History chewable tablet (Tums) cranberry extract 250 mg capsule 250 mg PO BID 01/21/17 10/21/22 History folic acid 800 mcg tablet 0.8 mg PO DAILY 01/29/17 10/21/22 History cholecalciferol (vitamin D3) 25 25 mcg PO DAILY 02/17/17 10/21/22 History mcg (1,000 unit) capsule hydroxyzine HCl 25 mg tablet 25 mg PO Q4H PRN #120 tab-caps 09/21/17 10/21/22 Rx naproxen sodium 550 mg tablet 550 mg PO BID PRN #60 tab-caps 10/14/17 10/21/22 Rx aspirin 81 mg tablet,delayed 81 mg PO DAILY 01/16/19 10/21/22 History release (David Low Dose Aspirin) magnesium oxide 500 mg PO DAILY PRN headache 11/15/20 10/21/22 History ibuprofen 600 mg tablet 600 mg PO Q8H PRN pain #30 tabs 03/28/21 10/21/22 Rx cyclobenzaprine 10 mg tablet 10 mg PO HS PRN muscle spasm #20 12/18/21 10/21/22 Rx tabs docusate sodium 100 mg capsule 100 mg PO DAILY 01/14/22 10/21/22 History (Dulcolax Stool Softener (docusate)) lisinopril 20 mg tablet 20 mg PO HS #90 tabs 01/14/22 10/21/22 Rx lamotrigine 200 mg tablet,extended 200 mg PO BID #180 tabs 03/25/22 10/21/22 Rx release 24 hr gabapentin 300 mg capsule 300 mg PO QHS #90 caps 04/21/22 10/21/22 Rx sumatriptan succinate 50 mg tablet See Rx Instructions PO .COMPLEX #9 04/21/22 10/21/22 Rx tabs phenazopyridine 100 mg tablet 100 mg PO TID PRN pain #20 tabs 07/16/22 10/21/22 Rx (Pyridium) ondansetron 4 mg disintegrating 4 mg PO TID-QID PRN nausea and 08/08/22 10/21/22 Rx tablet vomiting #20 tabs ondansetron HCl 4 mg tablet 4 mg PO Q8H PRN nausea #10 tabs 08/08/22 10/21/22 Rx levothyroxine 75 mcg tablet 75 mcg PO DAILY #90 tab-caps 08/25/22 10/21/22 Rx biotin 1 mg capsule 1 mg PO DAILY 09/11/22 10/21/22 History polyethylene glycol 3350 17 17 g PO ONCE #238 grams 09/11/22 10/21/22 Rx gram/dose oral powder metoprolol succinate 100 mg 100 mg PO DAILY #90 tabs 09/17/22 10/21/22 Rx tablet,extended release 24 hr meclizine 25 mg tablet 25 mg PO TID #14 tabs 10/13/22 10/21/22 Rx Exam Narrative Exam Narrative: PHYSICAL EXAM GENERAL APPEARANCE: Alert, healthy appearance, oriented, x 3,? in no acute distress HYDRATION: Well hydrated HEAD, EYES, EARS, NECK, THROAT: Head is normocephalic, pupils equal, round, reactive to light and accommodation, ocular movement intact, sclera clear and no jaundice. ?Dentition intact. LUNGS: normal respiration/normal chest excursion. ?Clear to auscultation bilaterally. ?No wheeze. ?HEART: Regular rate and rhythm. no murmurs ? ABDOMEN: soft and non-tender to palpation.? Normal bowel sounds.? Results Last Vital Signs Temp 36.4 C L 10/21/22 10:22 Pulse 73 10/21/22 10:22 Resp 16 10/21/22 10:22 BP 139/75 10/21/22 10:22 Pulse Ox 99 10/21/22 10:22 Comprehensive Metabolic Panel Sodium 141 mmol/L (136-145) 12/14/21 01:11 Potassium 4.9 mmol/L (3.5-5.1) 12/14/21 01:11 Chloride 106 mmol/L (98-107) 12/14/21 01:11 Carbon Dioxide 29.9 mmol/L (21.0-32.0) 12/14/21 01:11 BUN 24 mg/dL (7-18) H 12/14/21 01:11 Creatinine 0.9 mg/dL (0.55-1.02) 12/14/21 01:11 Estimated GFR/1.73 m2 55.30 (mL/min/1.73m2) 03/13/21 09:15 Glucose 112 mg/dL (74-106) H 12/14/21 01:11 Calcium 9.4 mg/dL (8.5-10.1) 12/14/21 01:11 Total Bilirubin 0.4 mg/dL (0.2-1.0) 12/14/21 01:11 ALT 24 U/L (14-59) 12/14/21 01:11 AST 42 U/L (15-37) H 12/14/21 01:11 Alkaline Phosphatase 91 U/L (46-116) 12/14/21 01:11 Total Protein 7.7 g/dL (6.4-8.2) 12/14/21 01:11 Albumin 3.7 g/dL (3.4-5.0) 12/14/21 01:11 Diabetes results Glucose 112 mg/dL (74-106) H 12/14/21 Total Cholesterol 191 mg/dL (50-200) 10/31/16 LDL Cholesterol Direct 101 mg/dL (<100) H 10/31/16 HDL Cholesterol 65 mg/dL (40-60) H 10/31/16 Triglycerides 168 mg/dL (30-150) H 10/31/16 BUN 24 mg/dL (7-18) H 12/14/21 Creatinine 0.9 mg/dL (0.55-1.02) 12/14/21 Estimated GFR/1.73 m2 55.30 (mL/min/1.73m2) 03/13/21 Est GFR (CKD-EPI 2020) 69.64 (mL/min/1.73m2) 12/14/21 Sodium 141 mmol/L (136-145) 12/14/21 Potassium 4.9 mmol/L (3.5-5.1) 12/14/21 Chloride 106 mmol/L (98-107) 12/14/21 Carbon Dioxide 29.9 mmol/L (21.0-32.0) 12/14/21 Calcium 9.4 mg/dL (8.5-10.1) 12/14/21 AST 42 U/L (15-37) H 12/14/21 ALT 24 U/L (14-59) 12/14/21 Total Protein 7.7 g/dL (6.4-8.2) 12/14/21 Albumin 3.7 g/dL (3.4-5.0) 12/14/21 TSH 0.55 uIU/mL (0.36-3.74) 12/14/21 Vitamin B12 570 pg/mL (193-986) 02/08/21 CBC White Blood Count 4.95 10^3/uL (4.4-10.8) 12/14/21 Red Blood Count 5.28 10^6/uL (3.93-5.22) H 12/14/21 Hemoglobin 14.6 g/dL (11.2-15.7) 12/14/21 Hematocrit 44.4 % (36.0-46.0) 12/14/21 Mean Corpuscular Volume 84 fL (80-95) 12/14/21 Mean Corpuscular Hemoglobin 27.7 pg (27.0-33.0) 12/14/21 Mean Corpuscular Hemoglobin Concent 32.9 % (32.0-36.0) 12/14/21 Red Cell Distribution Width 13.4 % (11.7-14.6) 12/14/21 Platelet Count 186 10^3/uL (130-400) 12/14/21 Mean Platelet Volume 11.0 fL (8.0-11.0) 12/14/21 Neutrophils % 56.4 12/14/21 Lymphocytes % 31.3 12/14/21 Monocytes % 9.3 12/14/21 Eosinophils % 2.2 12/14/21 Basophils % 0.6 12/14/21 Immature Granulocytes % 0.2 12/14/21 Lipid profile Total Cholesterol 191 mg/dL (50-200) 10/31/16 HDL Cholesterol 65 mg/dL (40-60) H 10/31/16 LDL Cholesterol Direct 101 mg/dL (<100) H 10/31/16 Triglycerides 168 mg/dL (30-150) H 10/31/16 Thyroid results Thyroid Dysfunction Results: TSH 0.55 uIU/mL (0.36-3.74) 12/14/21 Free T4 1.35 ng/dL (0.76-1.46) 02/07/20 Time Spent Time spent with Patient: <40 minutes Time was spent: preparing to see the patient(eg.review tests), obtaining and/or reviewing separately otained hiistory, ordering medications,tests, procedures, referring, communicating with other health eye care professional, indepentently interpreting results, counseling the patient and care coordination
--- NOTE | 2022-10-21 11:43 | BOWEL_PTH ---
PATIENT: Gia Macario LOC: [facility] U#:[id number] AGE/SX: 67/F ROOM: RE10/21/[address]: Citlaly Landa : 1955 BED: DIS: 10/21/2022 SPEC #: [id number] RECD: 10/21/22 12:29 STATUS: PHILL REQ #: [id number] JEFRY: 10/21/22 11:[address]: Citlaly Landa DEPT: Surgical Specimen RECD BY: Gracia Campbell ENTERED: 10/21/22 12:30 SP TYPE: Bowel OTHR DR: Denny Rodas MD Tissues: 1 - BIOPSY BOWEL 2 - BIOPSY BOWEL Procedures: GROSS AND MICRO LEVEL 4 Comments: [id number]
[2022-10-21 12:06] VITALS: BP 127/87; PULSE 68; RESP 16; TEMP 36; O2SAT 100
[2022-10-21 12:34] VITALS: BP 149/83; PULSE 61; RESP 16; TEMP 36.2; O2SAT 99
--- NOTE | 2022-10-21 13:31 | W.ANESPOSTOP ---
Postoperative Evaluation Date, Time and Location Date Performed: 10/21/22 Time Performed: 13:31 Patient Location: Day Surgery Unit Vital Signs Most Recent Imported Vital Signs: Most Recent Vital Signs Temp Pulse Resp BP Pulse Ox 36.2 C L 61 16 149/83 H 99 10/21/22 12:34 10/21/22 12:34 10/21/22 12:34 10/21/22 12:34 10/21/22 12:34 Pain Score Most Recent Pain Score: Most Recent Pain Score Pain Level 0 10/21/22 12:34 Assessment Mental Status: Awake (Alert & Oriented to Patient Baseline) Airway and Respiratory Function: Patent airway with normal (patient baseline) respiratory exam Cardiovascular Function: Hemodynamically Stable Hydration Status: Adequately Hydrated Nausea & Vomiting: No Nausea or Vomiting Pain: Pt. Denies Any Pain Peripheral Nerve Block: Patient did not receive a nerve block
== END 2022-10-21 13:09 | disposition home or self-care (01) ==
PROVIDERS: PCP Family Medicine; Visit Provider Surgery
PROC: 0DJD8ZZ Inspection of Lower Intestinal Tract, Via Natural or Artificial Opening Endoscopic (ICD-10-PCS; CPT 45378; principal; 2022-10-21 11:00)
DX: Z12.11 Encounter for screening for malignant neoplasm of colon (principal); Z86.010 Personal history of colon polyps; D12.4 Benign neoplasm of descending colon; K63.89 Other specified diseases of intestine
CPT/HCPCS: 45380; 88305; J2405

== ENCOUNTER 2022-11-14 09:23 | Outpatient (CLI) | payer MEDICARE, OTHER, SELFPAY ==
--- NOTE | 2022-11-14 09:30 | RT.EKG_ITS ---
APPROVED REPORT Exam: Resting ECG Reason for Exam: Follow up appointment Patient Location: O HR:65 bpm ECG Measurements Heart Rate 65 AXIS MO 187 P 74 QRSd 100 QRS -69 QT 439 T 24 QTc 457 Conclusion Sinus rhythm...normal P axis, V-rate 50- 99 Left anterior fascicular block...axis(240,-40), init forces inf Late transition
== END 2022-11-14 09:24 | disposition home or self-care (01) ==
LOC: DI.CARD 09:42
PROVIDERS: PCP Family Medicine; Referring Provider Family Medicine; Visit Provider Internal Medicine Cardiovascular Disease
DX: R42 Dizziness and giddiness (principal)
CPT/HCPCS: 93010

== ENCOUNTER → 2022-11-14 09:23 | Outpatient (BNVA) | payer MEDICARE, OTHER, SELFPAY | PROVIDERS: PCP Family Medicine; Referring Provider Family Medicine; Visit Provider Internal Medicine Cardiovascular Disease | DX: I42.2 Other hypertrophic cardiomyopathy (principal); I10 Essential (primary) hypertension | CPT/HCPCS: 93005; 99213 ==

== ENCOUNTER 2023-01-26 15:17 | Outpatient (REF) | payer MEDICARE, OTHER, SELFPAY ==
[2023-01-26 21:02] LABS: Absolute Basophil Count 0.05 10^3/uL (0.0-0.2); Absolute Eosinophil Count 0.05 10^3/uL (0.0-0.7); Absolute Lymphocyte Count 1.26 10^3/uL (1.2-3.4); Absolute Monocyte Count 0.37 10^3/uL (0.1-0.8); Absolute Neutrophil Count 3.39 10^3/uL (1.2-6.7); HCT 45.3 % (36.0-46.0); Lymphocytes % 24.6; MCH 28.1 pg (27.0-33.0); MCHC 33.1 % (32.0-36.0); MCV 85 fL (80-95); MPV 11.6 fL (8.0-11.0); Monocytes % 7.2; Neutrophils % 66.2; Platelet Count 194 10^3/uL (130-400); RBC 5.34 10^6/uL (3.93-5.22); RDW 13.6 % (11.7-14.6); RDW-SD 42.5 fL; WBC 5.12 10^3/uL (4.4-10.8)
[2023-01-26 21:11] LABS: Amylase 122 U/L (25-115); Lipase 52 U/L (16-77)
[2023-01-26 21:16] LABS: ALT 25 U/L (14-59); AST 22 U/L (15-37); Albumin 3.9 g/dL (3.4-5.0); Alkaline Phosphatase 110 U/L (46-116); BUN 25 mg/dL (7-18); Bilirubin, Total 0.5 mg/dL (0.2-1.0); CREATININE 1.1 mg/dL (0.55-1.02); Calcium 9.8 mg/dL (8.5-10.1); Chloride 103 mmol/L (98-107); Estimated GFR 54.39 (mL/min/1.73m2); Glucose 107 mg/dL (74-106); Potassium 3.9 mmol/L (3.5-5.1); Sodium 139 mmol/L (136-145); Total Protein 7.2 g/dL (6.4-8.2)
[2023-01-28 10:38] LABS: Lyme Ab w Rflx to Lyme Confirm Negative (Negative)
[2023-01-30 00:35] LABS: Anaplasma phagocytophilum Negative (Negative); B. miyamotoi PCR Negative (Negative); Babesia divergens/MO-1 Negative (Negative); Babesia duncani Negative (Negative); Babesia microti Negative (Negative); Ehrlichia chaffeensis Negative (Negative); Ehrlichia ewingii/canis Negative (Negative); Ehrlichia muris eauclairensis Negative (Negative)
== END 2023-01-26 15:18 | disposition home or self-care (01) ==
LOC: LBN 15:17
PROVIDERS: PCP Family Medicine; Visit Provider Nurse Practitioner Family
DX: R11.0 Nausea (principal); R51.9 Headache, unspecified
CPT/HCPCS: 80053; 83690; 87798; 82150; 85025; 86618

== ENCOUNTER 2023-03-30 09:52 | Emergency (ER) | payer MEDICARE, OTHER, SELFPAY ==
[2023-03-30] VITALS (39 sets, daily range): BP systolic 109–130; BP diastolic 58–80; PULSE 60–71; RESP 8–30; TEMP 36.5; O2SAT 96–98
--- NOTE | 2023-03-30 09:30 | RT.EKG_ITS ---
APPROVED REPORT Exam: Resting ECG Reason for Exam: chest pain Patient Location: E HR:66 bpm ECG Measurements Heart Rate 66 AXIS MN 191 P 67 QRSd 92 QRS -44 QT 445 T 56 QTc 468 Conclusion Sinus rhythm...normal P axis, V-rate 60- 99 Left axis deviation...QRS axis (-30,-90)
--- NOTE | 2023-03-30 10:15 | DI.RAD_ITS ---
Exam(s) XR PORTABLE CHEST AP EXAM: XR PORTABLE CHEST AP CLINICAL HISTORY: chest pain TECHNIQUE: 2D digital imaging was performed of the chest. One image was obtained. An AP view was ob tained. COMPARISON: CR XR PORTABLE CHEST AP from 12/17/2018 FINDINGS: MEDIASTINUM: Normal. HEART: Normal. PULMONARY VASCULATURE: Normal. LUNGS: The lungs are hyperinflated. No focal consolidating infiltrates. PLEURAL SPACE: No pleural effusion or pneumothorax. BONE:Within normal limits for the patient's age. OTHER FINDINGS:There is a ventricular peritoneal shunt again seen. Overlying monitoring equipment is present. IMPRESSION: Hyperexpansion of the lungs. No focal consolidations. DATA REPOSITORY: RADIATION DOSE DELIVERED:
--- NOTE | 2023-03-30 10:35 | ED.GENADUL_ITS ---
Discharge Plan Disposition Patient Disposition: Home Condition: Stable Discharge Details Clinical Impression: Chest pain Primary Care Provider: Denny Rodas ED Provider: Paramjit Cordon Home Meds and New Rx's Prescriptions: Continued magnesium oxide 400 mg magnesium capsule 500 mg PO DAILY Patient Comments: meclizine 25 mg tablet 25 mg PO TID PRN cyclobenzaprine 10 mg tablet 10 mg PO HS PRN (Reason: muscle spasm) Qty: 20 0RF docusate sodium [Dulcolax Stool Softener (dss)] 100 mg capsule 100 mg PO DAILY PRN ibuprofen 600 mg tablet 600 mg PO Q8H PRN (Reason: pain) Qty: 30 2RF sumatriptan succinate 50 mg tablet See Rx Instructions PO .COMPLEX Qty: 9 11RF Rx Instructions: take 1 tab at onset of headache; if no relief may repeat 1 tab after at least 2 hrs; max = 4 tabs/24 hr PO gabapentin 300 mg capsule 300 mg PO QHS Qty: 90 3RF biotin 1 mg capsule 1 mg PO DAILY omeprazole 20 mg capsule,delayed release(DR/EC) 20 mg PO DAILY PRN (Reason: gerd) Qty: 90 3RF multivitamin [Daily Multi-Vitamin] 1 EACH tablet 1 ea PO DAILY ascorbic acid (vitamin C) [Vitamin C] 500 MG tablet,chewable 500 mg PO DAILY Hold Instructions: Resume on 10/27/22. calcium carbonate [Tums] 300 MG tablet,chewable 300 mg PO BID cranberry extract 250 MG capsule 250 mg PO BID folic acid 0.8 MG tablet 0.8 mg PO DAILY cholecalciferol (vitamin D3) 1,000 UNIT capsule 25 mcg PO DAILY hydroxyzine HCl 25 MG tablet 25 mg PO Q4H PRN Qty: 120 3RF Rx Instructions: prn dizziness or headache naproxen sodium 550 MG tablet 550 mg PO BID PRN Qty: 60 3RF levothyroxine 75 mcg tablet 75 mcg PO DAILY Qty: 90 3RF metoprolol succinate 100 mg tablet extended release 24 hr 100 mg PO DAILY Qty: 90 3RF lisinopril 20 mg tablet See Rx Instructions .ROUTE .COMPLEX Qty: 90 3RF Dose Instruction: TAKE ONE TABLET BY MOUTH AT BEDTIME Rx Instructions: TAKE ONE TABLET BY MOUTH AT BEDTIME aspirin [David Low Dose Aspirin] 81 mg Tablet,Delayed Release (Dr/Ec) 81 mg PO DAILY Hold Instructions: Resume on 10/28/22. ondansetron 4 mg tablet,disintegrating 4 mg PO TID-QID PRN (Reason: nausea and vomiting) Qty: 10 1RF No Action lamotrigine 200 mg tablet extended release 24hr 200 mg PO BID Qty: 180 3RF Discharge Instructions Instructions: Chest Pain (ED) Additional Instructions: Please contact your primary care physician to arrange follow-up. Call today. Additional outpatient diagnostic testing including cardiac stress testing is indicated. Please take an aspirin daily. Return to the ER immediately for any worsening or new concerning symptoms. Referrals: Denny Rodas MD [Primary Care Provider] - Discharge Data Discharge Date/Time-TO BE ENTERED AT DEPARTURE: 03/30/23 14:33 Medical Decision Making 1035 --67-year-old female with multiple medical problems including history of hypertrophic cardiomyopathy, here with chest pressure that started this morning. Concern for potential ACS. EKG was reviewed and interpreted by me: Please report, sinus rhythm 66 bpm, left axis deviation noted, no STEMI. Plan to check troponin and trend. Patient is low risk for acute pulmonary embolism. Plan to check D-dimer. -- Labs reviewed: non diagnostic. Initial troponin negative. Delta troponin 3 hours unchanged and negative. Chest x-ray was reviewed and interpreted by radiology:MEDIASTINUM: Normal. HEART: Normal. PULMONARY VASCULATURE: Normal. LUNGS: The lungs are hyperinflated. No focal consolidating infiltrates. PLEURAL SPACE: No pleural effusion or pneumothorax. BONE:Within normal limits for the patient's age. OTHER FINDINGS:There is a ventricular peritoneal shunt again seen. Overlying monitoring equipment is present. IMPRESSION: Hyperexpansion of the lungs. No focal consolidations. 1400 -- On reassessment, patient is hemodynamically stable. She notes she is feeling much better. She does note some mild headache after the nitroglycerin and has some nausea associated with that. She is requesting Zofran which she regularly takes at home. All results were discussed with the patient. Plan for discharge with close outpatient followup with PCP. Disposition decision was made weighing the risks and benefits of hospitalization versus outpatient treatment, the risk for further decompensation, and the patient's wishes. The patient was stable and requested discharge. Prior to discharge, my usual and customary return precautions were reviewed with the patient - this included follow-up instructions and reason to return to the emergency department if condition worsens, does not improve as expected, or other new concerns arise. Lab Data Lab results reviewed: Yes I reviewed the patient's lab results. Labs: Laboratory Tests Range/Units 03/30/23 03/30/23 03/30/23 10:32 11:20 13:00 WBC (4.4-10.8) 10^3/uL 4.46 RBC (3.93-5.22) 10^6/uL 5.02 Hgb (11.2-15.7) g/dL 14.0 Hct (36.0-46.0) % 42.4 MCV (80-95) fL 85 MCH (27.0-33.0) pg 27.9 MCHC (32.0-36.0) % 33.0 RDW (11.7-14.6) % 13.9 Plt Count (130-400) 10^3/uL 161 MPV (8.0-11.0) fL 10.5 Immature Gran % 0.2 Neutrophils % 69.6 Lymphocytes % 22.6 Monocytes % 6.3 Eosinophils % 0.9 Basophils % 0.4 Nucleated RBC % (0.0-0.3) % 0.0 Absolute Neutrophils (1.2-6.7) 10^3/uL 3.10 Absolute Lymphocytes (1.2-3.4) 10^3/uL 1.01 L Absolute Monocytes (0.1-0.8) 10^3/uL 0.28 Absolute Eosinophils (0.0-0.7) 10^3/uL 0.04 Absolute Basophils (0.0-0.2) 10^3/uL 0.02 APTT (23.6-32.8) sec 25.6 D-Dimer (<500) ng/mlFEU 484 Sodium (136-145) mmol/L 143 Potassium (3.5-5.1) mmol/L 3.8 Chloride (98-107) mmol/L 106 Carbon Dioxide (21.0-32.0) mmol/L 28.4 Anion Gap (3-11) mmol/L 8.6 BUN (7-18) mg/dL 20 H Creatinine (0.55-1.02) mg/dL 1.0 Est GFR (CKD-EPI 2020) (mL/min/1.73m2) 60.98 Glucose (74-106) mg/dL 103 Calcium (8.5-10.1) mg/dL 9.3 Magnesium (1.8-2.4) mg/dL 2.1 Total Bilirubin (0.2-1.0) mg/dL 0.7 AST (15-37) U/L 20 ALT (14-59) U/L 21 Alkaline Phosphatase (46-116) U/L 99 Troponin I (<or=60) ng/L < 50 < 50 Total Protein (6.4-8.2) g/dL 6.7 Albumin (3.4-5.0) g/dL 3.3 L HPI General Mode of arrival: ambulatory . Date/Time Provider Initiated Documentation: 03/30/23 10:02 . Limitations to Documentation: no limitations . Information obtained by: patient . HPI Narrative: 67-year-old female with history of hypertrophic cardiomyopathy, costochondritis in the past, here today with chief complaint of chest pain. Patient notes pain woke her from rest around 830 this morning. Pain localized to anterior central chest and initially described as sharp and now pressure. Pressure is moderate intensity and constant. Patient received nitroglycerin by EMS x 1 and had minimal improvement. She did take full dose aspirin prior to arrival today. Patient denies associated shortness of breath. No leg swelling or calf pain. Related Data Home Medications Medication Instructions Recorded Confirmed ascorbic acid (vitamin C) 500 mg 500 mg PO DAILY 07/24/14 03/30/23 chewable tablet (Vitamin C) multivitamin (Daily Multi-Vitamin 1 ea PO DAILY 07/24/14 03/30/23 tablet) calcium carbonate 300 mg (750 mg) 300 mg PO BID 08/28/14 03/30/23 chewable tablet (Tums) cranberry extract 250 mg capsule 250 mg PO BID 01/21/17 03/30/23 folic acid 800 mcg tablet 0.8 mg PO DAILY 01/29/17 03/30/23 cholecalciferol (vitamin D3) 25 25 mcg PO DAILY 02/17/17 03/30/23 mcg (1,000 unit) capsule hydroxyzine HCl 25 mg tablet 25 mg PO Q4H PRN #120 tab-caps 09/21/17 03/30/23 naproxen sodium 550 mg tablet 550 mg PO BID PRN #60 tab-caps 10/14/17 03/30/23 aspirin 81 mg tablet,delayed 81 mg PO DAILY 01/16/19 03/30/23 release (David Low Dose Aspirin) magnesium oxide 500 mg PO DAILY headache 11/15/20 03/30/23 ibuprofen 600 mg tablet 600 mg PO Q8H PRN pain #30 tabs 03/28/21 03/30/23 cyclobenzaprine 10 mg tablet 10 mg PO HS PRN muscle spasm #20 12/18/21 03/30/23 tabs docusate sodium 100 mg capsule 100 mg PO DAILY PRN 01/14/22 03/30/23 (Dulcolax Stool Softener (docusate)) gabapentin 300 mg capsule 300 mg PO QHS #90 caps 04/21/22 03/30/23 sumatriptan succinate 50 mg tablet See Rx Instructions PO .COMPLEX #9 04/21/22 03/30/23 tabs levothyroxine 75 mcg tablet 75 mcg PO DAILY #90 tab-caps 08/25/22 03/30/23 biotin 1 mg capsule 1 mg PO DAILY 09/11/22 03/30/23 metoprolol succinate 100 mg 100 mg PO DAILY #90 tabs 09/17/22 03/30/23 tablet,extended release 24 hr meclizine 25 mg tablet 25 mg PO TID PRN 11/14/22 03/30/23 lisinopril 20 mg tablet See Rx Instructions .Route 01/27/23 03/30/23 .COMPLEX #90 tabs omeprazole 20 mg capsule,delayed 20 mg PO DAILY PRN gerd #90 caps 02/17/23 03/30/23 release ondansetron 4 mg disintegrating 4 mg PO TID-QID PRN nausea and 03/30/23 tablet vomiting #10 tabs lamotrigine 200 mg tablet,extended 200 mg PO BID #180 tabs 03/31/23 release 24 hr Previous Rx's Medication Instructions Recorded hydroxyzine HCl 25 mg tablet 25 mg PO Q4H PRN #120 tab-caps 09/21/17 naproxen sodium 550 mg tablet 550 mg PO BID PRN #60 tab-caps 10/14/17 ibuprofen 600 mg tablet 600 mg PO Q8H PRN pain #30 tabs 03/28/21 cyclobenzaprine 10 mg tablet 10 mg PO HS PRN muscle spasm #20 12/18/21 tabs gabapentin 300 mg capsule 300 mg PO QHS #90 caps 04/21/22 sumatriptan succinate 50 mg tablet See Rx Instructions PO .COMPLEX #9 04/21/22 tabs levothyroxine 75 mcg tablet 75 mcg PO DAILY #90 tab-caps 08/25/22 metoprolol succinate 100 mg 100 mg PO DAILY #90 tabs 09/17/22 tablet,extended release 24 hr lisinopril 20 mg tablet See Rx Instructions .Route 01/27/23 .COMPLEX #90 tabs omeprazole 20 mg capsule,delayed 20 mg PO DAILY PRN gerd #90 caps 02/17/23 release ondansetron 4 mg disintegrating 4 mg PO TID-QID PRN nausea and 03/30/23 tablet vomiting #10 tabs lamotrigine 200 mg tablet,extended 200 mg PO BID #180 tabs 03/31/23 release 24 hr Allergies Allergy/AdvReac Type Severity Reaction Status Date / Time divalproex sodium AdvReac Verified 03/30/23 11:15 [From [facility]] General Stated Complaint: Chest Pain DOMINGA: 3 Review of Systems All systems reviewed & are unremarkable except as noted in HPI and below Constitutional Constitutional: Denies fever(s) Cardiovascular Cardiovascular: Reports as per HPI Respiratory Respiratory: Reports as per HPI PFSH All Active Problems (Updated 03/30/23 @ 14:10 by Paramjit Cordon MD) Chest pain (Acute) Seborrheic keratosis (Acute) Basal cell carcinoma of scalp (Acute) Lumbago without sciatica (Acute) Vertigo (Acute) Seizure disorder (Acute) Tubular adenoma (Acute 10/2022) 10/2022, 09/2013 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 4.7mm. Yearly mammograms recommended. 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 Sz at night. Currently stable on Lamictal. Last seizure 2009 Colitis (Acute 01/16/17) Basal cell carcinoma of face (Acute) SHERLY (obstructive sleep apnea) (Chronic) does not use device Hypothyroidism (Chronic) Osteopenia (Acute) Inflamed seborrheic keratosis (Acute) LVH (left ventricular hypertrophy) (Acute) Hypertension (Chronic) Colorectal polyps (Acute) Internal hemorrhoids (Acute) Hypertrophic cardiomyopathy (Acute) Right flank pain (Acute) Imbalance (Acute) Tinnitus (Acute) [place] (Acute) Impacted cerumen (Acute) Conductive hearing loss, external ear (Acute) Sensorineural hearing loss of both ears (Acute) Skin lesion of cheek (Acute) Basal cell carcinoma (BCC) of skin of face (Acute) Lightheadedness (Acute) Dizziness (Acute) Headache (Acute) Neck pain (Acute) Leg pain, right (Acute) Quadriceps muscle rupture (Acute) Bilateral cataracts (Acute) Foot pain, left (Acute) Weight loss (Acute) Influenza (Acute) Medical History Brain abscess 1972; FRONTAL LOBE with shunt Displaced transverse fracture of right patella, subsequent encounter for closed fracture with malunion (08/01/16) Elbow fracture, left Pancreatitis (01/16/17) Valproic acid toxicity 2017. Hospitalized [place] [facility] [place] Significant recovery. Dyspareunia clitoral pain. Compounded vaginal E2 cream thru [facility] not effective. Surgical History History of cataract surgery S/P colonoscopy (~10/21/22) 2013- Tubular adenoma VENTRICULAR SHUNT after I+D of brain abcess. No issues. 1972. F/U with neuro [place] 04/21/22 Ligation of fallopian tube Tonsillectomy section (~1989) ORIF R Pat[place] 02/13/16 LAMINECTOMY LUMBAR Dilation and curettage Family History Mother , age 94 CHF (congestive heart failure) A-fib Hypertension Father , age 78 Essential hypertension Multiple myeloma Brother Essential hypertension Heart disease MVR/Afib COVID Maternal Grandfather No problems noted. Paternal Grandfather Stroke Hypertension Maternal Grandmother No problems noted. Paternal Grandmother Skin cancer Son No problems noted. Daughter No problems noted. 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 Pets and animals: Yes Pets and animals: dog(s) Sexually active: No Do you think of yourself as: straight/heterosexual Current gender identity: female What is your relationship status?: How often do you talk on the phone with friends or family?: three or more times per week How often do you get together with friends or relatives?: three or more times per week How often do you attend confucianism or catholic services?: decline to answer Do you belong to any clubs or organized social groups?: no Panel score (0-1 are the most socially isolated patients): 2 What type of physical activity do you participate in: none Frequency: does not exercise Elvia/Islam: Caodaism Special elvia needs: No Seatbelt use: always Helmet use: No Drive intox or ride w/intox otr hazmat company driver: No Do you feel safe at home: Yes Do you feel safe in your relationship?: Yes Female Reproductive History Menstrual Menopause type: natural History History 3 Para Hx # Term Pregnancies 2 Multiple births Hx # Pregnancies Ectopic pregnancies AB induced Hx Number of Living Children AB spontaneous Exam Const General: cooperative and no acute distress HENMT Mouth: moist mucous membranes Eyes Conjunctivae: normal conjunctivae Sclera: normal sclerae Neck Neck: trachea midline and supple Resp Auscultation: clear to auscultation bilaterally, no rales, no rhonchi and no wheezes Cardio Jugular venous pressure: no JVD Rate: regular rate and not tachycardic Rhythm: regular rhythm Heart Sounds: no gallops, no murmurs and no rubs GI Palpation: soft, not firm, no guarding, no masses, not rigid and nontender Skin General skin exam: no rashes or lesions noted Neuro General: patient alert, patient awake, patient oriented x3 and tone normal Extrem General: no calf tenderness and no edema Psych Appearance: grossly normal Mental Status: mental status grossly normal Speech and Movement: speech and movement normal Course Vital Signs Vital signs: Vital Signs Temperature 36.5 C 03/30/23 09:48 Pulse 62 03/30/23 09:48 Respiratory Rate 20 03/30/23 09:48 Blood Pressure 130/76 03/30/23 09:48 Pulse Oximetry 98 03/30/23 09:48 Temperature 36.5 C 03/30/23 09:48 Temperature Source Tympanic 03/30/23 09:48 Pulse 62 03/30/23 09:48 Respiratory Rate 18 03/30/23 10:03 Respiratory Effort Normal 03/30/23 10:03 Respiratory Depth Normal 03/30/23 10:03 Respiratory Pattern Normal 03/30/23 10:03 Blood Pressure 130/76 03/30/23 09:48 Blood Pressure Position Supine 03/30/23 09:48 Pulse Oximetry 98 03/30/23 09:48 Oxygen Delivery Method Room Air 03/30/23 09:48 Oxygen Flow Rate 0 03/30/23 09:48 Pain Level 7 03/30/23 10:03
[2023-03-30 10:42] LABS: Abs Immature Grans 0.01 10^3/uL (0.0-0.06); Absolute Basophil Count 0.02 10^3/uL (0.0-0.2); Absolute Eosinophil Count 0.04 10^3/uL (0.0-0.7); Absolute Lymphocyte Count 1.01 10^3/uL (1.2-3.4); Absolute Monocyte Count 0.28 10^3/uL (0.1-0.8); Basophils % 0.4; Eosinophils % 0.9; HCT 42.4 % (36.0-46.0); Immature Grans % 0.2; Lymphocytes % 22.6; MCH 27.9 pg (27.0-33.0); MCV 85 fL (80-95); MPV 10.5 fL (8.0-11.0); Monocytes % 6.3; Neutrophils % 69.6; Platelet Count 161 10^3/uL (130-400); RBC 5.02 10^6/uL (3.93-5.22); RDW 13.9 % (11.7-14.6); RDW-SD 42.6 fL; WBC 4.46 10^3/uL (4.4-10.8)
[2023-03-30 11:01] LABS: ALT 21 U/L (14-59); AST 20 U/L (15-37); Albumin 3.3 g/dL (3.4-5.0); Alkaline Phosphatase 99 U/L (46-116); Anion Gap 8.6 mmol/L (3-11); BUN 20 mg/dL (7-18); Bilirubin, Total 0.7 mg/dL (0.2-1.0); CO2 28.4 mmol/L (21.0-32.0); Calcium 9.3 mg/dL (8.5-10.1); Chloride 106 mmol/L (98-107); Estimated GFR 60.98 (mL/min/1.73m2); Glucose 103 mg/dL (74-106); Magnesium 2.1 mg/dL (1.8-2.4); Potassium 3.8 mmol/L (3.5-5.1); Sodium 143 mmol/L (136-145); Total Protein 6.7 g/dL (6.4-8.2); Troponin I < 50 ng/L (<or=60)
[2023-03-30 11:49] LABS: PTT Activated 25.6 sec (23.6-32.8)
[2023-03-30 12:04] LABS: D-Dimer 484 ng/mlFEU (<500)
[2023-03-30 13:40] LABS: Troponin I < 50 ng/L (<or=60)
== END 2023-03-30 14:33 | disposition home or self-care (01) ==
PROVIDERS: Emergency Provider Student in an Organized Health Care Education/Training Program; PCP Family Medicine
DX: R07.9 Chest pain, unspecified (principal); I10 Essential (primary) hypertension; I42.2 Other hypertrophic cardiomyopathy; Z79.82 Long term (current) use of aspirin; Z98.2 Presence of cerebrospinal fluid drainage device
CPT/HCPCS: 36415; 80053; 93005; 99283; 71045; 83735; 84484; 85025; 85379; 85730; 93010

== ENCOUNTER → 2023-04-14 00:03 | Outpatient (CLI) | payer MEDICARE, OTHER, SELFPAY ==
--- NOTE | 2023-04-14 07:45 | DI.NM_ITS ---
APPROVED REPORT Exam: Pharmacologic Patient Location: Out-Patient Room/Bed: Stress Nurse: Theodora Coronel RN Ordering Provider:GAIL GUALLPA, Contact Number: [phone] BMI: 19.93 Baseline Rhythm: Sinus Rhythm Indications: Chest pain Medical History Medical History: Brain abscess (1972 frontal lobe with shunt), vertigo, seizure disorder, essential t remor, glaucoma, SHERLY, hypothyroidism, left ventricular hypertrophy, HTN, hypertrophic cardiomyopathy, imbalance Cardiac Medications: Vitamin C, aspirin, vitamin D3, gabapentin, lamotrigine, levothyroxine, lisinopr il, magnesium oxide, meclizine, metoprolol, nitro, omeprazole, zofran, sumatriptan Allergies: Depakote Cardiac Risk Factors: Family hx, HTN, CVD Previous Cardiac Procedures: None Pretest Chest Pain Characteristics: None Exercise History: Indeterminate Physical Disabilities: Legs Lung Sounds: Clear to auscultation Heart Sounds: Regular Stress Test Details Test: Pharmacologic stress was paired with low level exercise. Reason for pharmacologic stress test: physical limitation. Nuclear Acquisition: Rest Tc-99m/Stress Tc-99m 1 day Rest Isotope: Tc-99m Sestamibi. Dose: 10.0 Date: 04/14/2023 Injection Time: 1115 Stress Isotope: Tc-99m Sestamibi. Dose: 30.0 Date: 04/14/2023 Injection Time: 1320 HR Resting HR Supine: 75 bpm Max Heart Rate (APMHR): 150 bpm Resting HR Standin bpm Target HR (85% APMHR): 128 bpm Max HR Achieved: 106 bpm % of APMHR: 71 Recovery HR: 98 bpm BP Resting BP Supine: 158/78 mmHg Resting BP Standin/88 mmHg Max BP: 158/78 mmHg Recovery BP: 142/70 mmHg ECG Resting ECG: Sinus Rhythm Ectopy: None Stress ECG: Sinus Tachycardia ST Change: Nondiagnostic low heart rate Arrhythmia: None Recovery ECG: Sinus Rhythm Recovery ST Change: Nondiagnostic low heart rate Recovery Arrhythmia: None Clinical Stress Symptoms: Headache Angina Score: None Rate Pressure Product: [id number] Stress ECG Conclusion 1. Normal clinical,ECG and BP responses. 2. Nuclear findings reported separately. Stress Test Summary STAGE HR BP SpO2 Symptoms NOTES Supine 75 158/78 95 Standing 85 140/88 1 min post Lexiscan injection 106 142/68 95 3 min post Lexiscan injection 102 148/70 6 min post Lexiscan injection 98 142/70 MPI Conclusion Normal myocardial perfusion. No ischemia or infarct. Normal LV systolic function without wall motion abnormalities.EF82%.
[2023-04-14] MEDS: Regadenoson 0.4 MG/5 ML SYR IVP (13:39)
== END ==
PROVIDERS: PCP Family Medicine; Visit Provider Family Medicine
DX: R07.9 Chest pain, unspecified (principal)
CPT/HCPCS: 78452; 93016; 93018; 93017; J2785

== ENCOUNTER → 2023-04-20 12:37 | Outpatient (BNVA) | payer MEDICARE, OTHER, SELFPAY | PROVIDERS: PCP Family Medicine; Visit Provider Psychiatry & Neurology Neurology | DX: G40.209 Localization-related (focal) (partial) symptomatic epilepsy and epileptic syndromes with complex partial seizures, not intractable, without status epilepticus (principal); G43.009 Migraine without aura, not intractable, without status migrainosus; G25.0 Essential tremor; R26.89 Other abnormalities of gait and mobility | CPT/HCPCS: 99214 ==

== ENCOUNTER → 2023-06-22 12:15 | Outpatient (BNVA) | payer MEDICARE, OTHER, SELFPAY | PROVIDERS: PCP Family Medicine; Referring Provider Family Medicine; Visit Provider Psychiatry & Neurology Neurology | DX: G43.009 Migraine without aura, not intractable, without status migrainosus (principal); G40.209 Localization-related (focal) (partial) symptomatic epilepsy and epileptic syndromes with complex partial seizures, not intractable, without status epilepticus; G25.0 Essential tremor; R26.89 Other abnormalities of gait and mobility | CPT/HCPCS: 99214 ==

== ENCOUNTER → 2023-07-30 14:55 | Outpatient (BNVA) | payer MEDICARE, OTHER, SELFPAY | PROVIDERS: PCP Family Medicine; Referring Provider Family Medicine; Visit Provider Psychiatry & Neurology Neurology | DX: G40.209 Localization-related (focal) (partial) symptomatic epilepsy and epileptic syndromes with complex partial seizures, not intractable, without status epilepticus (principal); G43.009 Migraine without aura, not intractable, without status migrainosus; G25.0 Essential tremor; R26.89 Other abnormalities of gait and mobility | CPT/HCPCS: 99213 ==

== ENCOUNTER 2023-09-02 10:17 | Outpatient (CLI) | payer MEDICARE, OTHER, SELFPAY | END 2023-09-02 10:18 | LOC: LBO 09-03 10:17 | PROVIDERS: PCP Family Medicine; Visit Provider Family Medicine | DX: E03.9 Hypothyroidism, unspecified (principal) | CPT/HCPCS: 36415; 84443 ==

== ENCOUNTER → 2023-10-29 14:37 | Outpatient (BNVA) | payer MEDICARE, OTHER, SELFPAY | PROVIDERS: PCP Family Medicine; Referring Provider Family Medicine; Visit Provider Psychiatry & Neurology Neurology | DX: G40.209 Localization-related (focal) (partial) symptomatic epilepsy and epileptic syndromes with complex partial seizures, not intractable, without status epilepticus (principal); G43.009 Migraine without aura, not intractable, without status migrainosus; G25.0 Essential tremor; R26.89 Other abnormalities of gait and mobility | CPT/HCPCS: 99213 ==

== ENCOUNTER → 2024-02-18 10:26 | Outpatient (BNVA) | payer MEDICARE, OTHER, SELFPAY | PROVIDERS: PCP Family Medicine; Referring Provider Family Medicine; Visit Provider Internal Medicine Cardiovascular Disease | DX: I42.2 Other hypertrophic cardiomyopathy (principal); I10 Essential (primary) hypertension | CPT/HCPCS: 99213 ==

== ENCOUNTER 2024-04-19 03:23 | Outpatient (CLI) | payer MEDICARE, OTHER, SELFPAY ==
[2024-04-19 12:47] LABS: CREATININE 1.1 mg/dL (0.55-1.02); Estimated GFR 53.72 (mL/min/1.73m2)
== END 2024-04-19 03:24 | disposition home or self-care (01) ==
LOC: LOS 03:24
PROVIDERS: PCP Family Medicine; Visit Provider Family Medicine
DX: I10 Essential (primary) hypertension (principal)
CPT/HCPCS: 36415; 82565; 84132

== ENCOUNTER → 2024-04-28 12:30 | Outpatient (BNVA) | payer MEDICARE, OTHER, SELFPAY | PROVIDERS: PCP Family Medicine; Visit Provider Psychiatry & Neurology Neurology | DX: G40.209 Localization-related (focal) (partial) symptomatic epilepsy and epileptic syndromes with complex partial seizures, not intractable, without status epilepticus (principal); G43.009 Migraine without aura, not intractable, without status migrainosus; G25.0 Essential tremor; R26.89 Other abnormalities of gait and mobility | CPT/HCPCS: 99214 ==

== ENCOUNTER 2024-09-30 14:37 | Outpatient (CLI) | payer MEDICARE, OTHER, SELFPAY ==
--- NOTE | 2024-09-30 12:45 | DI.US_ITS ---
Exam(s) US SOFT TISSUE EXTREMITY EXAM: US SOFT TISSUE EXTREMITY CLINICAL HISTORY: evaluate pathology,mass rt thigh, r22.41. TECHNIQUE: Ultrasound was performed using standard protocol. COMPARISON: No exams were available for comparison FINDINGS: Sonographic assessment utilizing grayscale and color Doppler imaging was performed and targeted to the area of clinical concern. There is no evidence a hematoma, mass or fluid collection. There is no significant edema. No evidence of skin thickening. IMPRESSION: No abnormalities identified in the area of clinical concern. DATA REPOSITORY:
--- NOTE | 2024-09-30 12:45 | DI.US_ITS ---
Exam(s) US LOWER EXTREMITY VENOUS RT EXAM: US LOWER EXTREMITY VENOUS RT CLINICAL HISTORY: ? dvt,swelling of thigh,m79.89. TECHNIQUE: Lower extremity venous ultrasound performed using grayscale, color- flow, and spectral Doppler analysis. COMPARISON: No exams were available for comparison FINDINGS: The common femoral, femoral and popliteal veins demonstrate normal compressibility, augmentation, and color Doppler. The posterior tibial and peroneal veins are patent. No saphenous vein thrombosis or other superficial venous thrombosis is seen. No hematoma or Bowen's cyst is seen. IMPRESSION: Negative lower extremity ultrasound. No evidence of DVT. DATA REPOSITORY:
== END 2024-09-30 14:57 ==
LOC: DI 14:39
PROVIDERS: PCP Family Medicine; Visit Provider Nurse Practitioner Family
DX: M79.89 Other specified soft tissue disorders (principal); R22.41 Localized swelling, mass and lump, right lower limb
CPT/HCPCS: 76881; 93971

== ENCOUNTER 2024-09-30 15:05 | Outpatient (REF) | payer MEDICARE, OTHER, SELFPAY ==
[2024-09-30 21:09] LABS: Abs Immature Grans 0.01 10^3/uL (0.0-0.06); Absolute Basophil Count 0.03 10^3/uL (0.0-0.2); Absolute Eosinophil Count 0.08 10^3/uL (0.0-0.7); Absolute Lymphocyte Count 1.54 10^3/uL (1.2-3.4); Absolute Monocyte Count 0.38 10^3/uL (0.1-0.8); Absolute Neutrophil Count 2.66 10^3/uL (1.2-6.7); Basophils % 0.6 %; Eosinophils % 1.7 %; HCT 45.2 % (36.0-46.0); HGB 14.8 g/dL (11.2-15.7); Immature Grans % 0.2 %; Lymphocytes % 32.8 %; MCH 28.1 pg (27.0-33.0); MCHC 32.7 % (32.0-36.0); MCV 86 fL (80-95); MPV 11.2 fL (8.0-11.0); Monocytes % 8.1 %; Neutrophils % 56.6 %; Platelet Count 191 10^3/uL (130-400); RBC 5.26 10^6/uL (3.93-5.22); RDW 13.8 % (11.7-14.6); RDW-SD 43.8 fL
[2024-09-30 21:28] LABS: ALT 29 U/L (14-59); AST 23 U/L (15-37); Alkaline Phosphatase 104 U/L (46-116); Anion Gap 6.4 mmol/L (3-11); BUN 20 mg/dL (7-18); Bilirubin, Total 0.5 mg/dL (0.2-1.0); CO2 32.6 mmol/L (21.0-32.0); CREATININE 1.2 mg/dL (0.55-1.02); Calcium 9.5 mg/dL (8.5-10.1); Chloride 103 mmol/L (98-107); Estimated GFR 48.39 (mL/min/1.73m2); Glucose 78 mg/dL (74-106); Magnesium 2.2 mg/dL (1.8-2.4); Potassium 4.1 mmol/L (3.5-5.1); Sodium 142 mmol/L (136-145); Total Protein 7.1 g/dL (6.4-8.2)
== END 2024-09-30 15:06 | disposition home or self-care (01) ==
LOC: LBN 15:05
PROVIDERS: PCP Family Medicine; Visit Provider Nurse Practitioner Family
DX: M79.651 Pain in right thigh (principal)
CPT/HCPCS: 80053; 83735; 85025

== ENCOUNTER → 2024-10-27 10:33 | Outpatient (BNVA) | payer MEDICARE, OTHER, SELFPAY | PROVIDERS: PCP Family Medicine; Visit Provider Psychiatry & Neurology Neurology | DX: G40.209 Localization-related (focal) (partial) symptomatic epilepsy and epileptic syndromes with complex partial seizures, not intractable, without status epilepticus (principal); G43.009 Migraine without aura, not intractable, without status migrainosus; G25.0 Essential tremor; R26.89 Other abnormalities of gait and mobility; I10 Essential (primary) hypertension | CPT/HCPCS: 99214 ==

== ENCOUNTER 2024-12-15 20:43 | Outpatient (REF) | payer MEDICARE, OTHER, SELFPAY | END 2024-12-15 20:44 | disposition home or self-care (01) | LOC: LBN 20:43 | PROVIDERS: PCP Family Medicine; Visit Provider Nurse Practitioner Family | DX: J02.9 Acute pharyngitis, unspecified (principal) | CPT/HCPCS: 87070 ==

== ENCOUNTER 2025-01-11 11:31 | Outpatient (CLI) | payer MEDICARE, OTHER, SELFPAY ==
--- NOTE | 2025-01-11 11:00 | DI.RAD_ITS ---
Exam(s) XR FOOT LT COMPLETE EXAM: XR FOOT LT COMPLETE CLINICAL HISTORY: eval pathology, LT FOOT PAIN, M79.672, ? PLANTAR 2-3 BONE SPURS. TECHNIQUE: 2D digital imaging was performed. Three views. COMPARISON: CR,XR XR FOOT RT COMPLETE from 02/15/2019 FINDINGS: BONES: No acute fracture is present. No bony destructive lesion is seen. Small plantar calcaneal spur. JOINTS: No dislocation present. No significant degenerative changes. SOFT TISSUE: Normal. IMPRESSION: Small heel spur. DATA REPOSITORY: RADIATION DOSE DELIVERED:
== END 2025-01-11 11:51 ==
LOC: DI 11:31
PROVIDERS: PCP Family Medicine; Visit Provider Nurse Practitioner Family
DX: M79.672 Pain in left foot (principal); M77.32 Calcaneal spur, left foot
CPT/HCPCS: 73630

== ENCOUNTER → 2025-02-02 08:42 | Outpatient (BNVA) | payer MEDICARE, OTHER, SELFPAY | PROVIDERS: PCP Family Medicine; Referring Provider Family Medicine; Visit Provider Podiatrist | DX: M25.572 Pain in left ankle and joints of left foot (principal); M77.42 Metatarsalgia, left foot; M67.02 Short Achilles tendon (acquired), left ankle; L84 Corns and callosities | CPT/HCPCS: 99214 ==

== ENCOUNTER 2025-02-16 08:36 | Outpatient (CLI) | payer MEDICARE, OTHER, SELFPAY ==
--- NOTE | 2025-02-16 08:30 | RT.EKG_ITS ---
APPROVED REPORT Exam: Resting ECG Reason for Exam: HTN CMP Patient Location: O HR:67 bpm ECG Measurements Heart Rate 67 AXIS ME 208 P 67 QRSd 102 QRS -50 QT 431 T 32 QTc 455 Conclusion Sinus rhythm...normal P axis, V-rate 50- 99 LAD, consider left anterior fascicular block...axis(240,-40), S>R II III aVF
== END 2025-02-16 08:37 | disposition home or self-care (01) ==
LOC: DI.CARD 08:37
PROVIDERS: PCP Family Medicine; Visit Provider Internal Medicine Cardiovascular Disease
DX: I42.2 Other hypertrophic cardiomyopathy (principal); I10 Essential (primary) hypertension; I44.4 Left anterior fascicular block
CPT/HCPCS: 93010

== ENCOUNTER → 2025-02-16 10:34 | Outpatient (BNVA) | payer MEDICARE, OTHER, SELFPAY | PROVIDERS: PCP Family Medicine; Visit Provider Internal Medicine Cardiovascular Disease | DX: I42.2 Other hypertrophic cardiomyopathy (principal); I10 Essential (primary) hypertension | CPT/HCPCS: 99213; 93005 ==

== ENCOUNTER → 2025-02-28 02:08 | Outpatient (CLI) | payer MEDICARE, OTHER, SELFPAY ==
--- NOTE | 2025-02-28 07:00 | DI.US_ITS ---
APPROVED REPORT EXAM: Comprehensive 2D, Doppler, and color-flow Echocardiogram Patient Location: Out-Patient Software Reliability Engineer: Monie Moses RDCS (AE) Indications: Hypertrophic nonobstructive cardiomyopathy Other Information Study Quality: Adequate Conclusion Normal left ventricular chamber size. There is asymmetric septal hypertrophy. Septal dimension is 1.5 cm, posterior wall 1 cm. EF is 60%. Wall motion is normal Normal right ventricular size and function Both atria are normal in size There are no structural valvular abnormalities Trace aortic, mitral, and tricuspid regurgitation Wall motion Left Ventricle The left ventricle is normal size. The left ventricular systolic function is normal. The left ventricular ejection fraction is within the normal range. Echo findings are consistent with hypertrophic cardiomyopathy. Severe basal septal hypertrophy is present. There is normal LV segmental wall motion. There is no ventricular septal defect visualized. LVEF is 60%. Right Ventricle The right ventricle is normal size. The right ventricular systolic function is normal. Atria The left atrium size is normal. The right atrium size is normal. The interatrial septum is intact with no evidence for an atrial septal defect. Aortic Valve The aortic valve is normal in structure. There is no aortic valvular stenosis. Trace aortic regurgitation. Mitral Valve No evidence of mitral valve stenosis. Trace mitral regurgitation. Tricuspid Valve The tricuspid valve is normal in structure. There is no tricuspid valve stenosis. Trace tricuspid regurgitation. Unable to assess PA pressure. Pulmonic Valve The pulmonary valve is normal in structure. There is no pulmonic valvular stenosis. There is no pulmonic valvular regurgitation. Great Vessels The aortic root is normal in size. The ascending aorta is normal Aortic arch is not well visualized. IVC is normal in size and collapses >50% with inspiration. Pericardium There is no pericardial effusion. 2D Dimensions IVSD d PLAX 1.52 cm F: 0.6-1.0 Ao Root d 3.06 cm F: 2.7 - 3.3 LVPW d PLAX 1.01 cm F: 0.6 - 1.0 Ao Asc Diam d 3.26 cm F: 2.3 - 3.1 LVID d PLAX 3.90 cm F: 3.8 - 5.2 LVDs 2.63 cm F: 2.2 - 3.5 LV EF Teichholz 60.5 % FS 31.80 % LV EDV (Teich) 64.4 mL LV ESV (Teich) 25.4 mL M-Mode TAPSE 1.95 cm (M/F) >1.7 Auto EF LV EDV A4C 79.8 mL LV EDV A2C 90.6 mL LV EDV BP 86.7 mL LV ESV A4C 32.0 mL LV ESV A2C 35.0 mL LV ESV BP 33.7 mL LVEF(%) A4C 59.9 % LVEF(%) A2C 61.4 % LVEF(%) BP 61.2 % LV SV A4C 47.8 ml LV SV A2C 55.6 ml LV SV BP 53.0 ml LV CO A4C 3.0 L/min LV CO A2C 3.1 L/min LV CO BP 3.1 L/min HR A4C 63.16 BPM HR A2C 56.59 BPM LV EDV Index (BP) LA Volume LA Length A4C 4.3 cm LA Length A2C 4.4 cm LA Area A4C s 15.38 cm2 LA Area A2C s 12.66 cm2 LA Vol A4C A-L 46.55 mL LA Vol A2C A-L 30.58 mL LA Vol Biplane A-L 38.3 mL LA Vol/BSA A4C A-L LA Vol/BSA A2C A-L LA Vol/BSA BP A-L 21.5 mL/m2 LA Vol A4C MOD 44.0 mL LA Vol A2C MOD 28.4 mL LA Vol BP MOD 35.9 mL RA Volume RA Area A4C 11.6 cm2 RA ESV A4C (A-L) 26.7mL RA Vol/BSA A4C A-L RA Length A4C 4.3 cm RA ESV A4C (MOD) 24.8mL LV Diastology MV E' medial 0.056 (>0.07 m/s) MV E Vmax 0.63 (0.4-1.3 m/s) MV E/E' MED 11.21 (<14) MV A Vmax 0.60 (0.4-1.3 m/s) MV E' lateral 0.051 (>0.1 m/s) E/A Ratio 1.0 MV E/E' LAT 12.18 (<14) MV E' Average 0.054 m/s MV E/E'(average) 11.67 Aortic Valve AoV Vmax 1.12 m/s LVOT Vmax 1.01 m/s AoV Peak Grad 5.0 mmHg LVOT Peak Grad 4.1 mmHg AoV Area (Vmax) 2.69 cm2 LVOT VTI 0.236 m AoV VTI 0.264 m LVOT Mean Grad 2.5 mmHg AoV Mean Mumtaz. 0.77 m/s LVOT SV 70.79 mL AoV Mean Grad 2.8 mmHg LVOT Diam s 1.95 cm AoV Area (VTI) 2.68 cm2 AV Regurg Peak Gr. 5.04 mmHg Velocity Ratio 0.90 Mitral Valve MV DT 268 (160-240 msec) MV Vmax TIPS 0.74 m/s MV Mean Grad 0.9 (<2mmHg) MV VTI 0.239 m Pulmonary Valve PV Vmax 0.89 (0.5-1.5 m/s) RVOT Vmax 0.83 m/s PV Peak Grad 3.1 mmHg RVOT Peak Gr. 2.8 mmHg PV Mean Mumtaz 0.58 m/s RVOT VTI 0.205 m PV Mean Grad 1.6 mmHg RVOT Mean Gr. 1.3 mmHg Tricuspid Valve TV S' 0.14 m/s
== END ==
LOC: DI 02:08
PROVIDERS: PCP Family Medicine; Visit Provider Internal Medicine Cardiovascular Disease
DX: I42.2 Other hypertrophic cardiomyopathy (principal)
CPT/HCPCS: 93306